=== PATIENT | male | born 1940 | race Caucasian/White ===

== ENCOUNTER → 2018-03-06 11:23 | Outpatient (CLI) | payer MEDICARE, OTHER, SELFPAY ==
--- NOTE | 2018-03-06 11:23 | DT_ITS ---
This patient was seen during an EMR downtime March 02, 2018 - March 09, 2018. This patient may have a combination of paper and electronic documentation or all paper documentation. All documentation is viewable within the e-chart portion of [employer] for each patient visit.
[2018-03-06 15:43] LABS: Rheumatoid Factor < 10.0 IU/mL (<15)
[2018-03-06 16:38] LABS: Hemoglobin A1c 5.6 % (4.2-6.3)
[2018-03-09 09:29] LABS: Vitamin B12 355 pg/mL (211-911)
== END ==
PROVIDERS: Family Provider Internal Medicine; PCP Internal Medicine; Visit Provider Psychiatry & Neurology Neurology
DX: G62.9 Polyneuropathy, unspecified (principal)
CPT/HCPCS: 36415; 82607; 82784; 83036; 84165; 84166; 86038; 86235; 86256; 86334; 86335; 86431

== ENCOUNTER → 2018-06-17 06:50 | Outpatient (CLI) | payer MEDICARE, OTHER, SELFPAY ==
--- NOTE | 2018-06-17 10:16 | NEURO ---
NCS and/or EMG Patient Report Ordering Doctor: Kiah Maldonado DATE OF SERVICE: 06/17/18 This is a bilateral upper extremity sensory and motor nerve conduction study performed on this 77-year-old male without history of neck pain or diabetes however he does have a history of previously diagnosed neuropathy in his legs. He describes numbness and tingling for approximately 9-1/2 months in both upper extremities equally. Bilateral upper extremity sensory and motor nerve conduction study is performed. The median motor distal latencies are prolonged symmetrically with preservation of amplitude and conduction velocities. The median sensory responses are also prolonged bilaterally and the median and ulnar F waves bilaterally are all prolonged mildly. The ulnar amplitude across the elbow on the right are somewhat slowed on the left they are relatively normal. The radial sensory responses normal. 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
== END ==
PROVIDERS: Family Provider Internal Medicine; PCP Internal Medicine; Visit Provider Psychiatry & Neurology Neurology
DX: G62.9 Polyneuropathy, unspecified (principal); R20.2 Paresthesia of skin; R20.0 Anesthesia of skin
CPT/HCPCS: 95911

== ENCOUNTER → 2018-06-30 07:35 | Outpatient (CLI) | payer MEDICARE, OTHER, SELFPAY ==
--- NOTE | 2018-06-30 13:33 | NEURO ---
NCS and/or EMG Patient Report Ordering Doctor: Kiah Maldonado DATE OF SERVICE: 06/30/18 This is a bilateral lower extremity nerve conduction study and a limited right lower extremity EMG performed on this 77-year-old male with a history of numbness tingling in both legs since September 2017. He states that he was diagnosed with B12 deficiency in December 2017 and has been on B12 replacement since. On examination he has mild hammertoe deformities bilaterally as well as high arches. Sensation is intact to testing. Bilateral lower extremity sensory and motor nerve conduction studies are performed. The sural sensory responses are preserved. The common peroneal motor distal latencies amplitudes and conduction velocities are symmetrically preserved. The tibial motor distal latencies amplitudes and conduction velocities are symmetrically preserved. The tibial and common peroneal F-wave latencies are bilaterally preserved and the tibial H reflex responses on the left demonstrate low amplitude and is in the normal range on the right. Right lower extremity needle electromyography was performed however the patient only tolerated testing of 3 muscles. Muscles evaluated included the extensor digitorum brevis, abductor hallucis and medial gastrocnemius. These muscles demonstrated normal insertional activity with absence of pathologic spontaneous activity and normal motor unit recruitment pattern as well as amplitude. The patient deferred testing of further muscles due to pain. 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
== END ==
PROVIDERS: Family Provider Internal Medicine; PCP Internal Medicine; Referring Provider Psychiatry & Neurology Neurology; Visit Provider Psychiatry & Neurology Neurology
DX: G62.9 Polyneuropathy, unspecified (principal); R20.0 Anesthesia of skin; R20.2 Paresthesia of skin
CPT/HCPCS: 95885; 95910

== ENCOUNTER 2018-07-31 10:30 | Day surgery (SDC) | payer MEDICARE, OTHER, SELFPAY ==
[2018-07-31 10:52] VITALS: BP 128/68; PULSE 70; RESP 16; TEMP 36.5; O2SAT 96; BMI 32.4
--- NOTE | 2018-07-31 12:00 | FOR_PTH ---
PATIENT: LURDES HERNANDES LOC: [facility] [place] U#:[id number] AGE/SX: 77/M ROOM: RE07/31/[address]: Dr. Feng Day MD : [id number] BED: DIS: 07/31/2018 SPEC #: [id number] RECD: 07/31/18 13:39 STATUS: JORDAN CORONA #: [id number] MIS: 07/31/18 12:[address]: Feng Day DEPT: SURGICAL PATHOLOGY RECD BY: Vikki Marie ENTERED: 07/31/18 14:57 SP TYPE: FORESKIN OTHR DR: Dr. 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 SJ:eulalia 08/03/18 MICROSCOPIC DESCRIPTION Slides are reviewed. GROSS DESCRIPTION Received in fixative is one container labeled with the patient's name and designated foreskin. The specimen consists of two irregular fragments of hoffman mucosa with attached hemorrhagic submucosal tissue that in aggregate measure 7 x 4 x 0.7 cm. No mucosal mass lesions are identified. Cloud Consultant sections are submitted in one cassette. / AM:eulalia 07/31/18 TC:3 CPT: 75447
[2018-07-31] MEDS: Cefazolin 2 GM in 0.9% Normal Saline 100 ML IV (12:45)
[2018-07-31] MEDS: Bupivacaine Mpf 0.5% 30 ML VIAL (12:55)
--- NOTE | 2018-07-31 13:17 | DCINST_ITS ---
Discharge Diet: Light diet - advance as tolerated Discharge Activity: Return to Normal Activity Call your doctor if your incision/area has: Continuous Slow Oozing, Sudden Increased Bleeding, Increased Pain/ Swelling, Increased Redness, Foul Smelling Discharge, Swelling at the incision site Instructions: Adult Circumcision, Care After Circumcision, Discharge Instructions for Circumcision Allergies/Adverse Reactions: Allergies Penicillins Allergy (Verified 07/24/18 08:11) Rash Medications to take at Discharge Budesonide/Formoterol Fumarate [Symbicort 160-4.5 Mcg Inhaler] 1 puff IH BID PRN PRN 12/27/16 Montelukast [Singulair] 10 mg PO DAILY 07/02/17 Cyanocobalamin [Vitamin B12] 1,000 mcg IM Q30D 07/24/18 Cyanocobalamin [Vitamin B12] 1,000 mcg PO DAILY@0800 07/24/18 Fluticasone/Vilanterol [Breo Ellipta 200-25 Mcg INH] 1 each IH DAILY 07/24/18 Levothyroxine [Synthroid] 50 mcg PO DAILY 07/24/18 Primary Care Physician: Cash Laguna MD [Primary Care Provider] - Test Results: Test results from this visit will be discussed in further detail at your follow- up appointment, if applicable. Please Follow Up With: Feng Day MD When: in 2 weeks, please call to make an appointment.
--- NOTE | 2018-07-31 13:17 | PCM.OPRPT ---
Report of Operation Date of Procedure: 07/31/18 Pre-Operative Diagnosis: Phimosis Post-Operative Diagnosis: Same Surgery/Procedure Performed:: Circumcision Description of Surgical Findings:: 77-year-old male taken back to the operating room at the smooth induction of general anesthesia he was placed in supine position the penis and testicles are prepped and draped in usual sterile fashion he had a very tight scarred down phimotic foreskin we did a penile ring block with lidocaine without epi performed a dorsal slit to pull back the foreskin and then circumferentially went around the sub-smith and then excised the foreskin. I then re-stitch the penile shaft to the subcoronal skin using a 3-0 Vicryl in a continuous fashion all the way around the penis after the circumcision was completed dressings were placed in the penis patient anesthetic was worse taken back to PACU in good condition also obtained good hemostasis with electrocautery after the circumcision was performed. Patient will follow-up in the office in about 2-3 weeks for checkup Type of Anesthesia:: General Drains: none Estimated Blood Loss (mL): 5cc - Admit VTE Documentation VTE Present on Admission: No VTE Mechan Device Prophylaxis: SCD's
[2018-07-31 13:24] VITALS: BP 128/68; BP 148/90; PULSE 75; RESP 16; TEMP 36.3; O2SAT 93
[2018-07-31 13:31] VITALS: BP 128/68; BP 131/92; PULSE 69; RESP 16; O2SAT 93
[2018-07-31 13:45] VITALS: BP 128/68; BP 132/88; PULSE 67; RESP 16; O2SAT 94
[2018-07-31 13:54] VITALS: BP 127/78; BP 128/68; PULSE 66; RESP 16; TEMP 36.5; O2SAT 93
[2018-07-31 15:35] VITALS: BP 115/77; BP 128/68; PULSE 77; RESP 16; TEMP 36.1; O2SAT 93
== END 2018-07-31 15:36 | disposition home or self-care (01) ==
LOC: SDC 10:31 → AC 10:32
PROVIDERS: Family Provider Internal Medicine; PCP Internal Medicine; Referring Provider Urology; Visit Provider Urology
PROC: (CPT 54161; principal; 2018-07-31 11:50)
DX: N47.1 Phimosis (principal); G47.30 Sleep apnea, unspecified; Z79.899 Other long term (current) drug therapy; E03.9 Hypothyroidism, unspecified; J45.20 Mild intermittent asthma, uncomplicated; H91.90 Unspecified hearing loss, unspecified ear
CPT/HCPCS: 54161; 88304; J7120; J2405

== ENCOUNTER 2018-12-03 12:36 | Observation (INO) | payer MEDICARE, OTHER, SELFPAY ==
[2018-12-03] VITALS (9 sets, daily range): BP systolic 109–142; BP diastolic 60–95; PULSE 58–88; RESP 16–22; TEMP 36.6–37; O2SAT 92–95; BMI 32.6; BMI 31.6; BMI 31.7
[2018-12-03 13:05] LABS: Bedside Glucose 131 mg/dL (70-110)
--- NOTE | 2018-12-03 13:11 | EKG12_ITS ---
Test Reason : SYNCOPE Blood Pressure : / mmHG Vent. Rate : 088 BPM Atrial Rate : 088 BPM P-R Int : 214 ms QRS Dur : 152 ms QT Int : 410 ms P-R-T Axes : 044 099 -02 degrees QTc Int : 496 ms Sinus rhythm with 1st degree A-V block Right bundle branch block Possible Inferior infarct , age undetermined Abnormal ECG Confirmed by SUNDAR SANTORO, JANIE ([id number]), television news video editor ALICIA MORTON ([id number]) on 12/08/2018 9:07:38 AM Referred By: Parish Pina Confirmed By:JANIE KWOK MD
--- NOTE | 2018-12-03 13:11 | RAD_ITS ---
STUDY: X-RAY CHEST REASON FOR EXAM: Male, 78 years old. Syncope. TECHNIQUE: Single AP portable view of the chest. COMPARISON: Comparison is made with prior study dated July 02, 2017. FINDINGS: EKG electrodes are seen. Stable elevation of the left hemidiaphragm with mild increased markings at the left lung base suggestive of a left basilar atelectasis. Blunting of the left costophrenic angle. Normal size heart. Normal mediastinum and laureen. Normal visualized pulmonary arteries. There is atherosclerotic tortuosity of the aortic arch and descending thoracic aorta. There are diffuse degenerative changes of the visualized thoracic spine. Normal visualized ribs, clavicles, and shoulders. There is no demonstrated abnormality of the visualized soft tissue structures of the upper abdomen. RAD/Chest 1 View (Portable) IMPRESSION: Elevated left hemidiaphragm with increased markings at the left lung base suggestive of left basilar atelectasis. Electronically Signed: Dwaine Singh, at 13:34 EST , Service support ,
[2018-12-03 13:24] LABS: Absolute Lymphocyte Count 1.21 X10^3/ul (0.83-4.51); Absolute Neutrophil Count 5.1 X10^3/uL (2.0-7.7); Basophil# 0.04 X10^3/uL; Basophil% 0.6 % (0-1); Eosinophil# 0.08 X10^3/uL; Eosinophils% 1.1 % (0-5); Hematocrit 50.3 % (40-54); Hemoglobin 15.8 g/dl (13.0-16.5); Lymphocyte # 1.21 X10^3/ul (4.0); Lymphocyte % 17.1 % (19-41); Mean Corp Hgb Conc 31.4 g/gl (32-36); Mean Corpuscular Volume 98.6 fL (80-94); Mean Platelet Vol. 10.6 fl (6.2-12.0); Monocyte# 0.58 X10^3/uL; Monocyte% 8.2 % (0-10); Neutrophil # 5.13 X10^3/uL (2.7-7.7); Neutrophil % 72.7 % (47-70); POSITIVE COUNT NO; POSITIVE DIFFERENTIAL NO; POSITIVE MORPHOLOGY NO; Platelet Count 187 K/mm3 (150-450); RBC Distribution Width CV 13.5 % (11.6-14.6); RBC Distribution Width SD 48.4 fl (35.1-43.9); White Blood Count 7.1 K/mm3 (4.4-11.0)
[2018-12-03 13:36] LABS: Anion Gap 7 (5-15); BUN 17 mg/dL (7-18); BUN/Creat Ratio 17.6 RATIO (10-20); Calcium,Total 8.8 mg/dL (8.5-10.1); Chloride 106 mmol/L (98-107); Creatinine, Serum 0.96 mg/dL (0.70-1.30); EST Glomerular Filtration Rate 80 mL/min (>60); Est Glom Filt Rate - Afr Amer 96 mL/min (>60); Estimated Creatinine Clearance 63.37 ml/min; Glucose 116 mg/dL (74-106); Potassium 3.9 mmol/L (3.5-5.1); Sodium Level 143 mmol/L (136-145)
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
--- NOTE | 2018-12-03 16:08 | ECHOD_ITS ---
Reason For Study: Syncope Procedure This was a 2D Doppler, Color Flow transthoracic echocardiogram. The study was technically difficult. Exam performed portable in patient room. Left Ventricle Normal LV size. Left ventricular systolic function is normal. The estimated ejection fraction is 65 %. Diastolic function is indeterminate. No regional wall motion abnormalities noted. Right Ventricle Mildly dilated right ventricle. Mild global right ventricular systolic dysfunction. Atria Normal left atrium. Normal right atrium. No doppler evidence for ASD. Mitral Valve There is no mitral annular calcification. Normal mitral valve. Trivial mitral valve insufficiency. Tricuspid Valve Normal tricuspid valve. Trivial tricuspid valve insufficiency. Unable to estimate RV systolic pressure/pulmonary artery pressure due to technically difficult study. Aortic Valve Trisinus/trileaflet aortic valve. Normal aortic valve. Pulmonic Valve The pulmonic valve is not well visualized. Great Vessels Normal sized aortic root. Pericardium/Pleural No pericardial effusion. MMode/2D Measurements & Calculations LVIDd: 3.7 cm IVSd: 1.5 cm Ao root diam: 3.3 cm LVIDs: 2.0 cm LVPWd: 1.2 cm RVDd: 3.0 cm FS: 45.3 % LAV(MOD-bp): 46.6 ml LVAd ap4: 28.3 cm2 SV(MOD-sp4): 52.7 ml LAV(MOD-bp) Indexed: 21.4 ml/m2 EDV(MOD-sp4): 79.2 ml LAV(MOD-sp2): 39.2 ml EDV(sp4-el): 81.7 ml LAV(MOD-sp4): 48.3 ml LVAs ap4: 14.2 cm2 ESV(MOD-sp4): 26.5 ml ESV(sp4-el): 25.7 ml EF(MOD-sp4): 66.6 % EF(sp4-el): 68.5 % SV(sp4-el): 55.9 ml LA A4 area: 18.3 cm2 LA dimension(2D): 5.1 cm RA A4 area: 11.6 cm2 Doppler Measurements & Calculations MV E max niels: 80.4 cm/sec Lat Peak E' Niels: 7.9 cm/sec Med Peak E' Niels: 7.0 cm/sec MV A max niels: 100.8 cm/sec E/E' lat: 10.2 E/E' med: 11.4 MV E/A: 0.80 Ao V2 max: 154.7 cm/sec LV V1 max: 132.1 cm/sec PA V2 max: 103.4 cm/sec Ao max P.6 mmHg LV V1 max P.0 mmHg Ao V2 mean: 111.7 cm/sec Ao mean P.4 mmHg Ao V2 VTI: 32.2 cm Interpretation Summary The study was technically difficult. Left ventricular systolic function is normal. The estimated ejection fraction is 65 %. Mildly dilated right ventricle. Mild global right ventricular systolic dysfunction. Trivial mitral valve insufficiency. Trivial tricuspid valve insufficiency. Unable to estimate RV systolic pressure/pulmonary artery pressure due to technically difficult study. Diastolic function is indeterminate. Ordering Physician: Parish Pina Referring Physician: Cash Laguna Performed By: Denise Webber, ANGELIA, RVT
--- NOTE | 2018-12-03 16:08 | CDU_ITS ---
Reason For Study: SYNCOPE Rt. Velocities/BP Lt. Velocities/BP Prox CCA 94.4/13.5 cm/sec. Prox CCA 110.0/17.0 cm/sec. Mid CCA 85.0/15.2 cm/sec. Mid CCA 97.9/19.9 cm/sec. Dist CCA 84.4/16.4 cm/sec. Dist CCA 97.3/24.6 cm/sec. Prox ICA 65.7/17.0 cm/sec. Prox ICA 72.8/22.4 cm/sec. Mid ICA 57.0/11.8 cm/sec. Mid ICA 74.0/23.7 cm/sec. Dist ICA 44.1/11.4 cm/sec. Dist ICA 69.8/20.9 cm/sec. Rt. ICA/CCA = .77. Lt. ICA/CCA = .76. Prox ECA 71.4/5.5 cm/sec. Prox ECA 97.3/10.0 cm/sec. Rt. Vert. 43.4/8.8 cm/sec. Lt. Vert. 41.6/10.0 cm/sec. Right Extracranial There is intimal thickening but no significant atherosclerotic plaque noted in the right common carotid artery. There is intimal thickening but no significant atherosclerotic plaque noted in the right internal carotid artery. There is intimal thickening but no significant atherosclerotic plaque noted in the right external carotid artery. Antegrade flow is noted in the right vertebral artery. Left Extracranial There is intimal thickening but no significant atherosclerotic plaque noted in the left common carotid artery. There is intimal thickening but no significant atherosclerotic plaque noted in the left internal carotid artery. There is no significant atherosclerotic plaque noted in the left external carotid artery. Antegrade flow is noted in the left vertebral artery. Procedure Carotid Duplex [id number]. Exam performed portable in patient room. Interpretation Summary No hemodynamically significant plague or stenosis bilateral external or internal carotid arteries with <50% stenosis bilaterally. Patent and antegrade vertebrals bilaterally Ordering Physician: Parish Pina Referring Physician: Cash Laguna M.D. Performed By: Dianna Nieves RVT
[2018-12-03 16:48] LABS: Thyroid Stim Hormone (TSH) 4.67 uIU/mL (0.358-3.74)
[2018-12-03] MEDS: Albuterol 2.5 MG/3 ML VIAL.NEB. INHALATION (18:47)
[2018-12-03] MEDS: Budesonide Respules 0.5 MG/2 ML AMPUL.NEB. INHALATION (18:47)
[2018-12-03] MEDS: Montelukast 10 MG Tablet PO (21:09)
[2018-12-04 03:15] VITALS: BP 105/60; BP 105/65; BP 114/71; PULSE 61; PULSE 66; PULSE 67; RESP 16; TEMP 36.9; O2SAT 96
[2018-12-04 03:20] VITALS: PULSE 57
[2018-12-04] MEDS: Levothyroxine 50 MCG Tablet PO (05:40)
[2018-12-04 07:17] VITALS: PULSE 63
[2018-12-04 07:38] VITALS: PULSE 62; RESP 16
[2018-12-04] MEDS: Albuterol 2.5 MG/3 ML VIAL.NEB. INHALATION (07:38)
[2018-12-04] MEDS: Budesonide Respules 0.5 MG/2 ML AMPUL.NEB. INHALATION (07:38)
[2018-12-04 09:26] VITALS: BP 110/59; PULSE 70; RESP 18; TEMP 36.9; O2SAT 96
[2018-12-04 11:30] VITALS: PULSE 61
--- NOTE | 2018-12-04 12:14 | DCINST_ITS ---
- Discharge Diagnoses Current Active Problems: Current Active and Chronic Problems Syncope (Acute) Reason(s) for Visit for Discharge Instructions: Syncope You will use the following diet at home:: Regular Your food should be the consistency of: Regular Your liquids should be the consistency of: Regular/Thin Discharge Activity: Return to Normal Activity Additional Instructions: You will be discharged with an event monitor. Follow-up with your primary care doctor within 1-2 weeks. Follow-up with cardiology in 1 month. Allergies/Adverse Reactions: Allergies Penicillins Allergy (Verified 12/03/18 12:39) Rash Medications to take at Discharge Montelukast [Singulair] 10 mg PO QHS 07/02/17 Fluticasone/Vilanterol [Breo Ellipta 200-25 Mcg INH] 1 each IH DAILY 07/24/18 Levothyroxine [Synthroid] 50 mcg PO DAILY 07/24/18 Cyanocobalamin [Vitamin B12] 1 ml IM QMONTH 12/03/18 Acetaminophen [Tylenol Tablet] 650 mg PO Q6H PRN PRN tablet 12/04/18 Orders to be completed after discharge: 30-Day Event Recorder [[facility]] Location: None Selected Primary Care Physician: Cash Laguna MD [Primary Care Provider] - Please follow up with your Primary Care Physician in: within 2 weeks Test Results: Test results from this visit will be discussed in further detail at your follow- up appointment, if applicable. Please Follow Up With: Vaughn Wang MD When: in 1 month Proposed Discharge Date: 12/04/18
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
[2018-12-04 17:25] LABS: Free T3 2.5 pg/mL (2.18-3.98); T4 Free Direct 0.92 ng/dL (0.76-1.46)
== END 2018-12-04 12:14 | disposition home or self-care (01) ==
LOC: ED 13:44 → PCU 15:26
PROVIDERS: Emergency Provider Emergency Medicine; Family Provider Internal Medicine; PCP Internal Medicine; Visit Provider Internal Medicine
DX: R55 Syncope and collapse (principal); R42 Dizziness and giddiness; I44.0 Atrioventricular block, first degree; I45.10 Unspecified right bundle-branch block; R06.02 Shortness of breath; Z79.899 Other long term (current) drug therapy; Z79.51 Long term (current) use of inhaled steroids; Z87.891 Personal history of nicotine dependence
CPT/HCPCS: 36415; 71045; 80048; 82962; 84439; 84443; 84481; 84484; 85025; 93005; 93306; 93880; 94640; 99218; 99283; A4216; G0378

== ENCOUNTER → 2019-01-06 10:15 | Outpatient (CLI) | payer MEDICARE, OTHER, SELFPAY ==
[2019-01-06 08:01] VITALS: BMI 33.0
--- NOTE | 2019-01-06 10:17 | CT_ITS ---
STUDY: CTA CHEST REASON FOR EXAM: Male, 78 years old. Syncopal episode. History of asthma. RADIATION DOSAGE (If Supplied By Facility): CTDIvol = ( 13.77 ) mGy, DLP = ( 430.80 ) mGycm TECHNIQUE: The examination was performed with the intravenous administration of 100 IV Isovue 370. Post-processing of the angiographic images was performed, with multiplanar reformation and 3D reconstruction. Individualized dose optimization techniques were used for this CT. COMPARISON: Comparison is made with prior study dated July 27, 2015. FINDINGS: Small bilateral axillary lymph nodes. Normal enhancement of the main pulmonary artery and right and left pulmonary arteries. Normal enhancement of the bilateral peripheral pulmonary arteries. There is no demonstrated pulmonary embolism. Normal thoracic aorta and visualized great vessels. There is no demonstrated aortic dissection. Normal heart and pericardium. Normal mediastinum. Normal hilar regions. Normal visualized trachea and bronchi. The lungs are well expanded. Mild increased markings at the lung bases slightly more prominent on the right side suggestive of scarring. Normal pleura. Normal chest wall structures. There are degenerative changes of thoracic spine. Normal visualized upper abdomen. CT/CTA Chest W/WO Contrast IMPRESSION: Mild scarring at the lung bases. There is no evidence of pulmonary embolism. Electronically Signed: Dwaine Singh, at 11:07 EDT , Service support ,
== END ==
PROVIDERS: Family Provider Internal Medicine; PCP Internal Medicine; Referring Provider Internal Medicine Cardiovascular Disease; Visit Provider Internal Medicine Cardiovascular Disease
DX: R55 Syncope and collapse (principal)
CPT/HCPCS: 71275; Q9967

== ENCOUNTER → 2019-01-08 14:46 | Outpatient (CLI) | payer MEDICARE, OTHER, SELFPAY ==
[2019-01-06 08:01] VITALS: BMI 33.0
[2019-01-08 15:30] LABS: Hematocrit 48.7 % (40-54); Hemoglobin 15.8 g/dl (13.0-16.5); Mean Corp Hgb Conc 32.4 g/gl (32-36); Mean Corpuscular Hgb 31.3 pg (27.0-32.0); Mean Corpuscular Volume 96.4 fL (80-94); Mean Platelet Vol. 10.3 fl (6.2-12.0); Platelet Count 185 K/mm3 (150-450); RBC Distribution Width CV 13.5 % (11.6-14.6); RBC Distribution Width SD 46.6 fl (35.1-43.9); Red Blood Count 5.05 M/mm3 (4.6-6.2); Scan Indicated on CBC? Y/N NO; White Blood Count 6.3 K/mm3 (4.4-11.0)
[2019-01-08 15:54] LABS: Anion Gap 4 (5-15); BUN 12 mg/dL (7-18); BUN/Creat Ratio 13.2 RATIO (10-20); Calcium,Total 8.7 mg/dL (8.5-10.1); Chloride 107 mmol/L (98-107); Creatinine, Serum 0.91 mg/dL (0.70-1.30); EST Glomerular Filtration Rate 85 mL/min (>60); Est Glom Filt Rate - Afr Amer 103 mL/min (>60); Glucose 110 mg/dL (74-106); Potassium 3.9 mmol/L (3.5-5.1); Sodium Level 142 mmol/L (136-145)
== END ==
PROVIDERS: Family Provider Internal Medicine; PCP Internal Medicine; Referring Provider Internal Medicine Cardiovascular Disease; Visit Provider Internal Medicine Cardiovascular Disease
DX: R55 Syncope and collapse (principal)
CPT/HCPCS: 36415; 80048; 85027

== ENCOUNTER 2019-01-13 06:34 | Day surgery (SDC) | payer MEDICARE, OTHER, SELFPAY ==
[2019-01-06 08:01] VITALS: BMI 33.0
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
[2019-01-12 09:03] VITALS: BMI 33.0
--- NOTE | 2019-01-13 08:18 | CL.IE_ITS ---
Patient: LURDES HERNANDES Study Date: 01/13/2019 Performing: Vaughn Wang MD : 1940 Age: 78 Gender: male PROCEDURES PERFORMED [id number] OF LOOP RECORDER INDICATIONS Syncope PROCEDURE DETAILS The patient was brought to the Catheterization Lab in the postabsorptive nonsedated state. Infor med consent was obtained prior to the procedure. Local anesthetic was given subcutaneously to the le ft upper chest area with Lidocaine 2%. Incision was made to the left upper chest. ICM Reveal LINQ was inserted into the pocket. The patient tolerated the procedure well. Estimated Blood Loss: 5 ml's IMPLANTED / EX-PLANTED DEVICES IMPLANTED DEVICE(S): ICM Reveal LINQ - Print Line Inspector: [employer], Model # [id number] Serial # [id number] DEVICE PARAMETERS CONCLUSIONS / RECOMMENDATIONS Device Conclusions: Successful implantation of a patient activated loop recorder. Device Recommendations: Follow up with Primary Care Physician PROCEDURE MEDICATIONS Versed 1 mg IV Oxygen: 2 L/min via nasal cannula Antibiotic given in appropriate timeframe. Signed By Vaughn Wang MD On 01/13/2019 08:17:43 Vaughn Wang MD
== END 2019-01-13 09:25 | disposition home or self-care (01) ==
LOC: CLSP 06:36
PROVIDERS: Family Provider Internal Medicine; PCP Internal Medicine; Referring Provider Internal Medicine Cardiovascular Disease; Visit Provider Internal Medicine Cardiovascular Disease
DX: R55 Syncope and collapse (principal); J44.9 Chronic obstructive pulmonary disease, unspecified; I45.10 Unspecified right bundle-branch block; E03.9 Hypothyroidism, unspecified; E66.9 Obesity, unspecified; G47.33 Obstructive sleep apnea (adult) (pediatric); Z87.19 Personal history of other diseases of the digestive system; Z87.438 Personal history of other diseases of male genital organs; Z79.899 Other long term (current) drug therapy; Z90.49 Acquired absence of other specified parts of digestive tract; Z87.891 Personal history of nicotine dependence
CPT/HCPCS: 33285; 99152; 99153; J7040

== ENCOUNTER 2019-11-21 10:48 | Inpatient (IN) | payer MEDICARE, OTHER, SELFPAY ==
[2019-07-27 08:43] VITALS: BMI 32.4
[2019-11-21] VITALS (35 sets, daily range): BP systolic 95–163; BP diastolic 53–89; PULSE 60–103; RESP 14–34; TEMP 36.4–37.3; O2SAT 91–99; BMI 32.5
--- NOTE | 2019-11-21 11:03 | EKG12_ITS ---
Test Reason : POST PCI Blood Pressure : / mmHG Vent. Rate : 082 BPM Atrial Rate : 082 BPM P-R Int : 224 ms QRS Dur : 146 ms QT Int : 432 ms P-R-T Axes : 026 084 021 degrees QTc Int : 504 ms Sinus rhythm with 1st degree A-V block Right bundle branch block Abnormal ECG Confirmed by AZUCENA SANTORO, PAM ([id number]), editorial project manager ALLISON BUTLER ([id number]) on 11/24/2019 1:58:24 PM Referred By: Loretta Gifford Confirmed By:PAM ZENG MD
--- NOTE | 2019-11-21 11:03 | RAD_ITS ---
STUDY: X-RAY CHEST REASON FOR EXAM: Male, 79 years old. CURRENT ID. PRE CATH FILM TECHNIQUE: Single AP portable view of the chest. COMPARISON: 12/03/2018 FINDINGS: Insertable color television console monitor. Poor inspiration with some bibasilar atelectasis. There is no demonstrated pleural abnormality. Normal size heart. Normal mediastinum and laureen. Normal visualized pulmonary arteries. Normal visualized aortic arch and descending thoracic aorta. Normal visualized thoracic spine. Normal visualized ribs, clavicles, and shoulders. There is no demonstrated abnormality of the visualized soft tissue structures of the upper abdomen. RAD/Chest 1 View (Portable) IMPRESSION: Poor inspiration with some bibasilar atelectasis. Electronically Signed: Michael Bello MD at 11:36 EST Tel , Service support ,
[2019-11-21] MEDS: Heparin 10,000 UNITS/10 ML Vial 5000 UNITS IV (11:08)
[2019-11-21] MEDS: TICAGRELOR 90 MG TABLET 180 MG PO (11:08)
[2019-11-21] MEDS: Aspirin 81 MG TAB.CHEW 324 MG PO (11:08)
--- NOTE | 2019-11-21 11:09 | ED.VISSUMM ---
- ER Visit Summary Date of Service: 11/21/19 Chief Complaint: Acute chest pain History of Present Illness: The patient is a 79 M history of asthma and hypothyroidism. No prior cardiac catheterization. Says he was at home about 20 minutes ago got severe 10 out of 10 chest pain and currently is 8 out of 10. He did not take any medications. He is not on blood pressure or cholesterol meds. The pain does radiate to his left arm. And he became sweaty with it. Denies nausea or shortness of breath. He states recently over the last several weeks he has had exertional shortness of breath and exertional chest pain. Any history of DVT or PE. No recent travel, surgery or immobilization. No leg pain or swelling. Physical Examination: Older male initial blood pressure 126/71. Heart rate 61. Pulse ox 97% on room air no signs of hypoxia. He has diaphoretic. H EENT exam unremarkable. Neck nontender no lymphadenopathy. Lungs clear to auscultation bilaterally. Heart regular rhythm rate about 60 no murmur. Chest wall nontender. No ecchymosis or bruising. No subcu air. Abdomen soft nontender normal bowel sounds no peritoneal signs. Patient is moving all 4 extremities. Neurovascular intact. Equal symmetrical radial pulses. Calves are nontender without edema or cords. Neurologically is awake and alert with no focal motor or sensory deficits. Skin no rashes but he is diaphoretic. Test Results: EKG on arrival shows what looks like a acute inferior AL. Is ST elevation in [address] depression in V1 V2 V3 this is changed from prior EKG from November. Labs and chest x-ray are currently pending. White count 8. Hemoglobin is 16 and hematocrit of 51. Electrolytes unremarkable normal creatinine of 1.1 and gap. Troponin normal at 0.023. Chest x-ray is single portable view shows normal cardiac silhouette mediastinum. No acute abnormality read by myself. Emergency Department Course and Treatment: Patient has been given a baby aspirin. I spoke to the sales associate fishing on-call patient be started on heparin bolus and Brilinta p.o. We are preparing the patient for the Veterinary Technician Assistant and the STEMI team has been following. Treatment Plan: STEMI team and patient being prepared for the Veterinary Technician Assistant. I also spoke to the hospitalist Dr. Nohemy Gifford and she will meet him in Veterinary Technician Assistant. Disposition: Admission Impression: Acute inferior AL Acute chest pain This note was generated with [employer] dictation software. It may contain incorrect words, spelling, and punctuation that were not noted in review of the chart prior to signing ED Disposition - Plan for ED Patient: Referrals: Cash Laguna MD [Primary Care Provider] -
[2019-11-21 11:12] LABS: Absolute Lymphocyte Count 2.33 X10^3/uL (0.83-4.51); Absolute Neutrophil Count 5.2 X10^3/uL (2.0-7.7); Basophil# 0.06 X10^3/uL; Basophil% 0.7 % (0-1); Eosinophil# 0.07 X10^3/uL; Eosinophils% 0.8 % (0-5); Hematocrit 51.3 % (40-54); Hemoglobin 16.5 g/dL (13.0-16.5); Lymphocyte # 2.33 X10^3/ul (4.0); Lymphocyte % 26.3 % (19-41); Mean Corp Hgb Conc 32.2 g/dL (32-36); Mean Corpuscular Hgb 30.7 pg (27.0-32.0); Mean Corpuscular Volume 95.5 fL (80-94); Mean Platelet Vol. 10.3 fl (6.2-12.0); Monocyte# 1.19 X10^3/uL; Monocyte% 13.4 % (0-10); NRBC Flagged by Analyzer 0 % (0-5); Neutrophil # 5.19 X10^3/uL (2.7-7.7); Neutrophil % 58.5 % (47-70); Platelet Count 196 K/mm3 (150-450); RBC Distribution Width CV 12.8 % (11.6-14.6); RBC Distribution Width SD 45.4 fl (35.1-43.9); Red Blood Count 5.37 M/mm3 (4.6-6.2); White Blood Count 8.9 K/mm3 (4.4-11.0)
--- NOTE | 2019-11-21 11:12 | NURSING ---
EXHIBIT SPECIALIST , THEN CVICU [address] [facility]I
[2019-11-21] MEDS: Ondansetron 4 MG/2 ML Vial IV (11:19)
[2019-11-21] MEDS: Morphine 4 MG/ML Syringe IV (11:19)
[2019-11-21 11:25] LABS: Anion Gap 4 (5-15); BUN 22 mg/dL (7-18); BUN/Creat Ratio 19.8 RATIO (10-20); Calcium,Total 9.3 mg/dL (8.5-10.1); Chloride 108 mmol/L (98-107); Creatinine, Serum 1.11 mg/dL (0.70-1.30); EST Glomerular Filtration Rate 68 mL/min (>60); Est Glom Filt Rate - Afr Amer 82 mL/min (>60); Estimated Creatinine Clearance 53.89 ml/min; Glucose 131 mg/dL (74-106); Potassium 3.5 mmol/L (3.5-5.1); Sodium Level 143 mmol/L (136-145)
--- NOTE | 2019-11-21 13:15 | CON.PCM_ITS ---
Problem List (1) Acute inferior myocardial infarction Status: Acute Reason for Consult Date of Consultation: 11/21/19 History of Present Illness: The patient is a 79 year old M with significant prior history of syncope for which he had a loop recorder placed approximately 3 years prior to his evaluation by Dr. Rubio presented with symptoms of chest discomfort to the emergency room. Patient informs me that he watching TV at around 1030 this morning started having symptoms of chest discomfort in the anterior precordial area. And subsequently EMS was called and patient was brought to emergency room. Initial EKG emergency room showed evidence of acute ST segment elevation in the inferior leads with reciprocal depression IN THE anterior precordial leads. Due to symptoms of chest discomfort pulses and patient was given heparin 5000units in the emergency room and 4 mg of morphine aspirin and i Integrilin drip was initiated after he came to the [facility]. Approximately week ago while he was watching TV at home started have symptoms of chest discomfort but that subsided spontaneously without any further recurrence since he has not reported that to his career development coordinator Dr. Wang or his primary care physician Past Medical History Allergies/Adverse Reactions: Allergies Penicillins Allergy (Verified 11/21/19 10:50) Rash Home Medications: Ambulatory Orders Medication Instructions Recorded albuterol sulfate 90 mcg/actuation 2 puff INHALATION Q6H PRN 01/01/19 aerosol inhaler Fluticasone/Vilanterol [Breo 1 ea IH DAILY 11/21/19 Ellipta 200-25 Mcg INH] Levothyroxine [Synthroid] 88 mcg PO DAILY 11/21/19 Past Medical History (Chronic Problems): Chronic Problems (Last Reviewed 07/27/19 @ 09:[address] Vaughn Wang MD) History of loop recorder (Chronic 01/13/19) Right bundle branch block (RBBB) (Chronic) Surgical History: cataract, cholecystectomy, tonsillectomy Psychiatric History: No pertinent psych hx - *Family History Maternal Family History: Family History (Last Reviewed 07/27/19 @ 09:[address] Vaughn Wang MD) Mother Heart disease Hypertension Brother Heart disease Father Heart disease Colon cancer History Items: Diabetes, Heart Disease Sibling Family History: Family History (Last Reviewed 07/27/19 @ 09:[address] Vaughn Wang MD) Mother Heart disease Hypertension Brother Heart disease Father Heart disease Colon cancer History Items: Asthma, Heart Disease - Brother with a defibrillator Paternal Family History: Family History (Last Reviewed 07/27/19 @ 09:[address] Vaughn Wang MD) Mother Heart disease Hypertension Brother Heart disease Father Heart disease Colon cancer History Items: Cancer - Colon cancer, Heart Disease Smoking Status: Never smoker Objective: Vital Signs Temp Pulse Resp BP Pulse Ox 97.6 F L 62 16 145/89 H 98 11/21/19 10:51 11/21/19 11:35 11/21/19 11:35 11/21/19 11:35 11/21/19 11:35 Oxygen Flow Rate (L/min) 2 Oxygen Delivery Method Room Air Weight: 226 lb 10.163 oz Body Mass Index (BMI) 32.5 Neck: Supple Lungs: Clear to auscultation Cardiovascular: Regular Rhythm Vascular: No Carotid Bruits Abdomen: Bowel Sounds Present Extremities: No Cyanosis Musculoskeletal: No Erythema Skin: No Rashes 11/21/19 10:55: WBC 8.9, RBC 5.37, Hgb 16.5, Hct 51.3, MCV 95.5 H, MCH 30.7, MCHC 32.2, Plt Count 196, MPV 10.3, Immature Gran % (Auto) 0.300, Neut % (Auto) 58.5, Lymph % (Auto) 26.3, [place] % (Auto) 13.4 H, Eos % (Auto) 0.8, Baso % (Auto) 0.7, Absolute Neuts (auto) 5.2, Nucleated RBC % 0 11/21/19 10:55: Sodium 143, Potassium 3.5, Chloride 108 H, Carbon Dioxide 31.0, Anion Gap 4 L, BUN 22 H, Creatinine 1.11, Est GFR (MDRD) Af Amer 82, Est GFR (MDRD) Non-Af 68, BUN/Creatinine Ratio 19.8, Glucose 131 H, Calcium 9.3, Troponin I 0.023 Rhythm: EKG: Sinus bradycardia with marked first-degree AV block segment elevation in the inferior leads II, III and aVF and reciprocal depression in leads V1, V2 and V3 with underlying right bundle branch block pattern which is chronic ECHO: Stress Test: Cardiac Cath: PCI: CT Surgery: Holter monitor: EPS: PPM: CXR: Chest CT Scan: Assessment/Plan Acute inferior myocardial infarction cardiac [facility] underwent primary angioplasty of culprit lesion which was the mid right coronary artery which showed evidence of 90% gnosis with thrombus. This was successfully revascular ized and patient had placement of a 3.5 into 16 mm drug-eluting stent which was postdilated to 3.76mm 3.75 into 12mm noncompliant balloon stenosis from 90% to 0% . Tolerated procedure with no complications patient had tortuous anatomy in his right brachiocephalic trunk which delayed the door to balloon time evidence of focal 80% stenosis in the mid left interesting artery which will be addressed at a later date Continue patient on IV Integrilin 1 bottle continue dual antiplatelet including Brilinta and aspirin thereafter 0.5 mg IV atropine in the cardiac [facility] for marked bradycardia hence will hold off on using beta-blockers for now but will consider starting a low-dose beta-geoff from tomorrow Echocardiogram in the morning to assess LV systolic function . CPKs and troponins to assess the myocardial damage 2.Bronchial asthma currently stable 3.Chronic right bundle branch block pattern 4. HYpothyroidism 5. Dyslipidemia we will check lipid profile on a fasting sample tomorrow mo rning but will add Lipitor 80 mg nightly from this evening
--- NOTE | 2019-11-21 13:48 | CL.I_ITS ---
Patient Name: LURDES HERNANDES Study Date: 11/21/2019 Performing: Forrest Vaughan MD Ht: 70 inches 177.8 cm : 1940 Wt: 220 lbs 99.79 kg Age: 79 Gender: male BSA: 2.17 PROCEDURE(S) PERFORMED AA68-JHE/COR/LV [id number], KELSI AND/OR PTCA, ARTERY OR GRAFT, SINGLE VESSEL CLINICAL PROFILE AND CO-MORBIDITIES Indications: ACS <= 24 hrs Heart Failure: None Stress/Imaging Stress/Image Study Performed: No CAD Presentations: STEMI. Symptom onset Date/Time: 11/21/2019 10:30:00 Time Estimated CONCLUSIONS Successful KELSI to mid RCA using a 3.5x16 synergy KELSI which was post dilated with a [id number] NC ballo on. Also of note, it took additional time due to access problems along with patient having a tortuou s anatomy in his right brachiocephalic trunk which delayed the the targeted door to balloon time. Th e 80% mid LAD stenosis will be addressed at a later date. RECOMMENDATIONS Highly recommend quitting all tobacco products Follow up with primary buoy tender Risk factor modification ASA Indefinitley Plavix for at least 12 months Routine post interventional care Refer for Outpatient Cardiac Rehab Manual sheath removal per protocol DESCRIPTION OF PROCEDURE The patient arrived to the procedure lab. The risks and benefits of the procedure as well as a full d escription of our services here and lack of surgical backup were fully explained to the patient and/o r their significant other prior to the catheterization. The Timeout was completed, verifying the cristel ect patient and procedure. The patient's procedural site was prepped and draped in the usual fashion. Local anesthetic was given subcutaneously to right radial region with Lidocaine 2%. Local anesthetic was given subcutaneously to right groin region with Lidocaine 2%. Using a modified Seldinger techniq ue, arterial access was obtained via the right radial artery, a 6Fr sheath was inserted., arterial ac cess was obtained via the right femoral artery, a 6Fr sheath was inserted.. Left Coronary Artery asif ective angiography was performed in multiple views using a 6 Fr. 4.0 Hampton catheter. Left Ventriculog ravindra was performed in STEPHENSON projection using a 5 Fr. Pigtail catheter. LV to AO pullback pressures were then recorded Due to tortuosity in the right brachiocephalic artery it was difficult t o engage the diagnostic and guide catheters. It took an additional length of time and caused procedur e delay in reaching targeted door to balloon time. AL 0.75 Guide catheter was inserted and engaged into the LCA. 6fr JL4 Guide catheter was inserted and engaged into the LCA. Arterial sheath was exchanged for a 7 Fr Sheath. 6fr AL 0.75 Guide cathete r was inserted and engaged into the LCA. Arterial sheath was exchanged for a 6fr 45cm sheath JR 4.0 G uide catheter was inserted and engaged into the RCA. choice floppy Guide wire was advanced to the RCA . Emerge 3.00x12 Balloon catheter was inserted. PTCA balloon inflated at 8 atms for 30 secs. Angiogra m performed post balloon dilatation. Synergy 3.50x16 Drug Eluting stent was inserted. Angiogram perfo rmed post stent deployment. NC Emerge 3.75x12 Balloon catheter was inserted. PTCA balloon inflated at 16 atms for 45 secs. Angiogram performed post balloon dilatation. Arterial sheath was exchanged for a 7 Fr Sheath. The arterial sheath was sutured in place and capped. The arterial sheath was pulled and a TR Band was applied for hemostasis W/ 10ML AIR CORONARY ANGIOGRAPHY DOMINANCE: Right Dominant LEFT HEART ASSESSMENT Left Ventricular Ejection Fraction: by LV Gram 55-60 % Mild inferior hypokinesis Inferior Mid Hypokinesis - Mild LEFT ANTERIOR DESCENDING ARTERY: MID LAD: 80 % Stenosis RIGHT CORONARY ARTERY: MID RCA: 90 % Stenosis INTERVENTION INFORMATION LESION SITE: RCA (Mid) thrombus present: Yes, Lesion Complexity: Non-High/Non-C, lesion length: 12 mm, culprit lesion: Yes Pre Stenosis: 90 % Pre intervention KEISHA flow: 2 PROCEDURE: Drug Eluting Stent with pre and post dilatation Post Stenosis: 0 % Post intervention KEISHA flow: 3 Lesion Devices: Sundrop Mobile 6 Fr JR4.0 100cm Guide Catheter Thai Sci EMERGE MR 3.00x12 BALLOON Thai Sci NC EMERGE MR 3.75x12 BALLOON Thai Sci Synergy MR KELSI 3.50x16 COMPLICATIONS No Complications PROCEDURE MEDICATIONS Versed 2 mg IV Fentanyl 50 mcg IV Oxygen: 2 L/min via nasal cannula Oxygen: 100 % FiO2 via non-rebreather mask Oxygen: 4L via nasal cannula Atropine 1mg/10ml 0.5 amp-HR 37 @ 11/21/2019 12:42:47 Heparin 3000 unit(s) via IA 11/21/2019 12:13:40 Heparin 1,500 unit(s) IV 11/21/2019 12:32:48 Heparin 2000 unit(s) IV 11/21/2019 13:07:56 Nitro 600 mcg IC 11/21/2019 12:42:22 IV Bolus: .9 NaCl 1700 ml total 11/21/2019 12:43:15 SUMMARY OF HEMODYNAMIC DATA Time AIR REST ECG 11:42:46 LV 125/23, 33 11:54:00 LV 124/23, 31 11:54:06 LVp 123/16, 32 11:54:12 AOp 121/71 (91) 11:54:17 AO 122/69 (92) SA 11:54:18 LV 100/14, 30 12:57:11 LV 103/13, 24 12:57:18 LV 119/4, 19 12:59:16 LVp 120/1, 20 12:59:21 AOp 110/55 (78) 12:59:26 RM AIR REST 13:48:14 Signed By Forrest Vaughan MD On 11/23/2019 1:28:27 PM Signed By Forrest Vaughan MD On 11/23/2019 11:56:10 AM Signed By Forrest Vaughan MD On 11/22/2019 10:50:21 Signed By Forrest Vaughan MD On 11/21/2019 13:47:50 Forrest Vaughan MD
--- NOTE | 2019-11-21 14:00 | EKG12_ITS ---
Test Reason : AM EKG Blood Pressure : / mmHG Vent. Rate : 066 BPM Atrial Rate : 066 BPM P-R Int : 200 ms QRS Dur : 142 ms QT Int : 428 ms P-R-T Axes : 032 068 008 degrees QTc Int : 448 ms Normal sinus rhythm Right bundle branch block Abnormal ECG Confirmed by AZUCENA SANTORO, PAM ([id number]), index editor ALLISON BUTLER ([id number]) on 11/24/2019 1:58:41 PM Referred By: Loretta Gifford Confirmed By:PAM ZENG MD
--- NOTE | 2019-11-21 14:16 | PCM.HP.STD ---
Problem List (1) STEMI (ST elevation myocardial infarction) Status: Acute Qualifiers: Involved coronary artery: right coronary artery Qualified Code(s): I21.11 - ST elevation (STEMI) myocardial infarction involving right coronary artery (2) Unstable angina pectoris due to coronary arteriosclerosis Status: Acute Comment: for the week preceding the STEMI (3) Asthma Status: Chronic (4) Hyperglycemia Status: Acute Comment: no hx of DM II (5) Acute inferior myocardial infarction Status: Acute (6) History of loop recorder Status: Chronic Comment: placed in November of 2018 after a syncopal episode (7) Right bundle branch block (RBBB) Status: Chronic (8) Syncope Status: Resolved Qualifiers: Syncope type: unspecified Qualified Code(s): R55 - Syncope and collapse (9) Coronary artery disease Status: Acute (10) Post PTCA Status: Acute History of Present Illness Date of Admission: 11/21/19 Chief Complaint: Chest pain radiating to both arms associated with sweating The patient is a 79 year old M with a past medical history of asthma, hypothyroidism and a syncopal episode in November 2018. He had a echocardiogram at that time that showed a 65% ejection fraction with a mildly dilated RV and mild global right ventricular systolic dysfunction. Stress echocardiogram was negative for ischemia. A 30-day event monitor was negative. He had a loop recorder implanted and to his knowledge has had no significant dysrhythmias. Last week he began having substernal and left chest pain at rest and with exertion. It was sometimes associated with diaphoresis but it would resolve on its own and he did not seek medical attention. He had a little chest discomfort this morning when his went to mandaen and when she came back he was waiting for her to take him to the hospital. He had left chest pain that was described as 10/10 and it radiated to both arms. He was sweaty and somewhat nauseated. He is not on aspirin as an outpatient. He has tried to take aspirin in the past and after a few days he always has epistaxis and has to stop the aspirin. He has never seen an ENT doctor or had cautery. He has no history of hypertension or hyperlipidemia and he has been a lifelong non-smoker. EKG in the emergency room showed ST segment elevation in the inferior leads with reciprocal ST segment depression and T wave inversion in the anterior leads. Code STEMI was called and the patient was taken to the [facility] by Dr. Forrest Vaughan. A R radial cardiac catheterization showed a left ventricular ejection fraction of 55 to 60% with mild inferior hypokinesis. There was an 80% stenosis of the mid LAD and a 90% stenosis of the mid RCA. There was thrombus present in the RCA. He had KELSI to the RCA and post stent stenosis was 0%. Postprocedure he was transferred to the cardiac care unit. Lab was personally reviewed. CBC is remarkable for a mildly increased MCV at 95.5 but is otherwise unremarkable. The BMP shows a potassium of 3.5 and a BUN of 22 with a creatinine of 1.11. Random blood sugar is elevated at 131 and he has had no history of diabetes mellitus type 2. The last lipid panel done at this institution was in 2012 and at that time the LDL was 120 and the HDL was 42. His last visit with cardiology was in June 2019 and at that time he had a mildly increased blood pressure and he was asked to check his blood pressure at home and send Dr. Wang the results. There were no changes made to his medications at that time. He was instructed to follow-up in 1 year. Past Medical History Past Medical History (Chronic Problems): Chronic Problems (Last Reviewed 07/27/19 @ 09:[address] Vaughn Wang MD) Asthma (Chronic) History of loop recorder (Chronic 01/13/19) placed in November of 2018 after a syncopal episode Right bundle branch block (RBBB) (Chronic) Medical History: Medical History (Last Reviewed 11/21/19 @ 14:[address] 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 Loretta Gifford DO) History of loop recorder (Chronic) Onset Date: 01/13/19 Z98.890 placed in November of 2018 after a syncopal episode History of ERCP Z98.890 History of cataract surgery Z98.49 History of tonsillectomy Z90.89 Hx of cholecystectomy Z90.49 Surgical History: cataract, cholecystectomy, tonsillectomy Psychiatric History: No pertinent psych hx Lives: Spouse/ Significant Other Smoking Status: Never smoker Tobacco Use: Non-smoker Alcohol: None Drugs: None - *Family History Maternal Family History: Family History (Last Reviewed 11/21/19 @ 14:[address] Loretta Gifford DO) Mother Heart disease Hypertension Brother Heart disease Father Heart disease Colon cancer History Items: Diabetes, Heart Disease Sibling Family History: Family History (Last Reviewed 11/21/19 @ 14:[address] Loretta Gifford DO) Mother Heart disease Hypertension Brother Heart disease Father Heart disease Colon cancer History Items: Asthma, Heart Disease - Brother with a defibrillator Paternal Family History: Family History (Last Reviewed 11/21/19 @ 14:[address] Loretta Gifford DO) Mother Heart disease Hypertension Brother Heart disease Father Heart disease Colon cancer History Items: Cancer - Colon cancer, Heart Disease Review of Systems Constitutional: Denies: Chills, Fever, Malaise, Weight Change - He has been trying to lose weight. BMI is 32.5. Eyes: Denies: Blurred vision HEENT: Denies: Difficulty Hearing, Difficulty Swallowing, Head Aches, Nasal Congestion, Sinus Congestion, Sinus Drainage, Sore Throat Cardiovascular: Reports: Chest Pain - See history of chief complaint for the description., Syncope - In November 2018 and has had no recurrence. Denies: Edema, Light Headedness, Orthopnea, Palpitations, Paroxysmal Noc. Dyspnea Respiratory: Reports: Shortness of breath upon exertion - Or the past week. Denies: Cough, Hemoptysis, Pleuritic Pain, Shortness of Breath, Shortness of breath at rest, Sputum production Gastrointestinal: Reports: Nausea. Denies: Abdominal Pain, Diarrhea, Vomiting Genitourinary: Denies: Dysuria Musculoskeletal: Reports: Arm Pain - He had bilateral arm pain today associated with left chest pain.. Denies: Joint Pain, Joint Tenderness Skin: Denies: Jaundice, Rash, Wounds Neurological: Denies: Balance problems, Slurred speech, Confusion, Difficulty swallowing, Focal weakness, Numbness, Tingling Psychiatric: Denies: Anxiety, Depression, Homicidal Ideations, Suicidal Ideations Endocrine: Denies: Change in Body Habitus, Heat/ Cold Intolerance Hematologic/ Lymphatic: Denies: Easy Bruising, Easy Bleeding, Hx of blood clot VTE Information - Inpt Only VTE Present on Admission: No VTE Mechan Device Prophylaxis: SCD's, Knee High LAKESHIA Hose VTE Pharm Prophylaxis ordered?: No Reason prophylaxis not ordered:: Treatment Not Indicated Patient Problems: Active and Suspected Problems (Last Reviewed 07/27/19 @ 09:[address] Vaughn Wang MD) Acute inferior myocardial infarction (Acute) STEMI (ST elevation myocardial infarction) (Acute) Unstable angina pectoris due to coronary arteriosclerosis (Acute) for the week preceding the STEMI Hyperglycemia (Acute) no hx of DM II Coronary artery disease (Acute) Post PTCA (Acute) - Physical Exam Vitals/I&O's: Vital Signs Temp Pulse Resp BP Pulse Ox 97.6 F L 62 16 145/89 H 98 11/21/19 10:51 11/21/19 11:35 11/21/19 11:35 11/21/19 11:35 11/21/19 11:35 Oxygen Flow Rate (L/min) 2 Oxygen Delivery Method Room Air Weight: 226 lb 10.163 oz Body Mass Index (BMI) 32.5 General: Alert, Oriented x3, Cooperative, No apparent distress, Well developed, Well nourished HEENT: Atraumatic, PERRLA, EOMI, Normocephalic Oral: Moist Mucosa, No Gingival or Mucosal Lesions/ Ulcerations Neck: Supple, No JVD, Negative Carotid Bruits, No Nodes, Trachea Midline, - - Carotid had brisk upstroke and good pulse volume. Lungs: Clear to auscultation - Anterior and lateral., Normal air movement, No rhonchi, No wheeze, No rales Cardiovascular: Regular rate, Regular Rhythm, Normal S1, Normal S2, No murmurs, No rub noted, No Gallop Abdomen: Bowel Sounds Present, Soft, Non Tender, Non-Distended, - - No guarding with palpation Extremities: No clubbing, No cyanosis, No edema, Capillary Refill Less than 3 Seconds, No Calf Tenderness, Peripheral Pulses Normal Skin: No rashes, No breakdown, - - He had a right radial cardiac catheterization and there is no bleeding at the site currently. Musculoskeletal: No Tenderness to Palpation of Joints or Extremities, No Muscle Wasting Neurological: Cranial nerves II-XII grossly intact, Neuro grossly intact Psych/Mental Status: Normal Affect, Appropriate Laboratory Results 11/21/19 10:55: WBC 8.9, RBC 5.37, Hgb 16.5, Hct 51.3, MCV 95.5 H, MCH 30.7, MCHC 32.2, RDW Std Deviation 45.4 H, RDW Coeff of Dejuan 12.8, Plt Count 196, MPV 10.3, Immature Gran % (Auto) 0.300, Neut % (Auto) 58.5, Lymph % (Auto) 26.3, [place]offey % (Auto) 13.4 H, Eos % (Auto) 0.8, Baso % (Auto) 0.7, Absolute Neuts (auto) 5.2, Absolute Lymphs (auto) 2.33, Nucleated RBC % 0 11/21/19 10:55: Sodium 143, Potassium 3.5, Chloride 108 H, Carbon Dioxide 31.0, Anion Gap 4 L, BUN 22 H, Creatinine 1.11, Estim Creat Clear Calc 53.89, Est GFR (MDRD) Af Amer 82, Est GFR (MDRD) Non-Af 68, BUN/Creatinine Ratio 19.8, Glucose 131 H, Calcium 9.3, Troponin I 0.023 Current Medications Acetaminophen (Tylenol) 650 mg PO Q6H PRN PRN PRN Reason: Pain Score 1-3/10 Aspirin (Ecotrin) 81 mg PO DAILY@0800 LILLY Atorvastatin Calcium (Lipitor) 80 mg PO QHS LILLY Atropine Sulfate () 0.5 mg IV UD PRN PRN Reason: HR <50 bpm Heparin Sodium (Beef Lung) (Heparin 500 Unit/5 Ml (100/Ml)) 500 unit IV UD PRN PRN Reason: HEPARIN FLUSH Labetalol HCl (Trandate) 5 mg IV X1 PRN PRN Reason: SBP > 160 when pulling sheath Stop: 11/23/19 13:49 Metoclopramide HCl (Reglan) 5 mg IV Q6H PRN PRN PRN Reason: NAUSEA/VOMITING Metoprolol Tartrate (Lopressor (Beta Zaida)) 12.5 mg PO BID LILLY Nitroglycerin (Nitrostat) 0.4 mg SUBLINGUAL Q5M PRN PRN Reason: CARDIAC/CHEST PAIN Sodium Chloride () 500 ml IV BOLUS PRN PRN Reason: VASO-VAGAL PROTOCOL Ticagrelor (Brilinta) 90 mg PO BID LILLY Assessment/Plan All Active Problems (Last Reviewed 07/27/19 @ 09:[address] Vaughn Wang MD) Acute inferior myocardial infarction (Acute) STEMI (ST elevation myocardial infarction) (Acute) Unstable angina pectoris due to coronary arteriosclerosis (Acute) Hyperglycemia (Acute) Coronary artery disease (Acute) Post PTCA (Acute) Syncope (Resolved) Impressions 1. ST elevation [place] in the inferior wall due to a 90% stenosis of the mid RCA. Patient had a drug-eluting stent placed and postprocedure had 0% stenosis. Transferred to the coronary care unit on dual antiplatelet agents, beta-zaida and a high intensity statin. 2. S/P R radial cardiac catheterization with a KELSI to to mid RCA. 3. CAD with a 90% mid RCA stenosis and a 80% mid LAD stenosis. May need further intervention. He will be re-evaluated by cardiology in the AM and the decision will be made when to intervene....in a few days or bring back as an OP 4. Hypothyroidism 5. Hx of asthma 6. hx of Epistaxis with ASA Continue aspirin and Brilinta Continue metoprolol and watch closely for any recurrent bradycardia Continue high intensity statin. Lipid panel in the a.m. Echocardiogram in the a.m. We will have cardiology review his recent loop recorder results discuss with cardiology in the AM if/when he will have intervention for the 80% LAD lesion SCDs and LAKESHIA jerez for DVT prophylaxis No indication for GI prophylaxis at this time. Code Visit Inpatient E&M: 86395 Init Hosp L3
[2019-11-21 14:48] LABS: CPK Total, Creatine Kinase 288 U/L (39-308)
[2019-11-21] MEDS: 0.9% Normal Saline 1,000 ML 150 ML IV (15:50)
[2019-11-21 18:40] LABS: CPK Total, Creatine Kinase 490 U/L (39-308)
[2019-11-21] MEDS: Atorvastatin Calcium 80 MG Tablet PO (21:35)
[2019-11-21] MEDS: TICAGRELOR 90 MG TABLET PO (21:35)
[2019-11-21 22:10] LABS: CPK Total, Creatine Kinase 492 U/L (39-308)
[2019-11-22] VITALS (21 sets, daily range): BP systolic 97–128; BP diastolic 51–65; PULSE 56–74; RESP 16–25; TEMP 36.6–37.3; O2SAT 89–100
[2019-11-22 04:57] LABS: Hematocrit 44.3 % (40-54); Hemoglobin 14.3 g/dL (13.0-16.5); Mean Corp Hgb Conc 32.3 g/dL (32-36); Mean Corpuscular Hgb 31.5 pg (27.0-32.0); Mean Corpuscular Volume 97.6 fL (80-94); Mean Platelet Vol. 10.3 fl (6.2-12.0); Platelet Count 166 K/mm3 (150-450); RBC Distribution Width SD 46.8 fl (35.1-43.9); Red Blood Count 4.54 M/mm3 (4.6-6.2); White Blood Count 7.4 K/mm3 (4.4-11.0)
[2019-11-22 05:24] LABS: AST(SGOT) 62 U/L (15-37); Alanine Aminotransfer ALT/SGPT 24 U/L (16-61); Albumin, Serum 2.9 g/dL (3.2-5.0); Alkaline Phosphatase 109 U/L (45-117); Anion Gap 4 (5-15); BUN 14 mg/dL (7-18); BUN/Creat Ratio 14.2 RATIO (10-20); Calcium,Total 8.3 mg/dL (8.5-10.1); Chloride 109 mmol/L (98-107); Cholesterol 137 mg/dL (200); Creatinine, Serum 0.99 mg/dL (0.70-1.30); EST Glomerular Filtration Rate 77 mL/min (>60); Est Glom Filt Rate - Afr Amer 94 mL/min (>60); Estimated Creatinine Clearance 60.42 ml/min; Glucose 133 mg/dL (74-106); High Density Lipoprotein 38 mg/dL; Magnesium 2.1 mg/dL (1.6-2.6); Potassium 4.1 mmol/L (3.5-5.1); Protein, Total 5.9 g/dL (6.4-8.2); Sodium Level 142 mmol/L (136-145); Triglycerides 134 mg/dL; Very Low Density Lipoprotein 27 mg/dL (5-40)
--- NOTE | 2019-11-22 05:55 | ECHOCS_ITS ---
Reason For Study: S/P CT Procedure This was a 2D Doppler, Color Flow transthoracic echocardiogram. The study was technically difficult. Exam performed portable in patient room. Left Ventricle Normal size and thickness. The estimated ejection fraction is 65 %. Stage 1 diastolic dysfunction. Septal motion consistent with IVCD. No regional wall motion abnormalities noted. Right Ventricle Normal size and thickness. Normal systolic function. Atria Normal left atrium. Normal right atrium. Normal atrial septum. Mitral Valve The mitral valve is structurally normal. No prolapse or stenosis seen. Trivial mitral valve insufficiency. Tricuspid Valve Normal tricuspid valve. Unable to estimate RV systolic pressure due to insufficient tricuspid regurgitant envelope. Aortic Valve Normal aortic valve. Trisinus/trileaflet aortic valve. Pulmonic Valve Normal pulmonic valve. Great Vessels Normal aortic root. Normal arch. Normal inferior vena cava. Inferior vena cava collapse with sniff. Pericardium/Pleural No pericardial effusion. Medication Diluted definity 3ml given slow IV push to enhance endocardial definition. MMode/2D Measurements & Calculations LVIDd: 3.7 cm IVSd: 1.3 cm Ao root diam: 3.2 cm LVIDs: 2.7 cm LVPWd: 1.1 cm RVDd: 3.3 cm FS: 26.9 % LAV(MOD-bp): 35.7 ml LA A4 area: 14.6 cm2 LA dimension(2D): 4.4 cm LAV(MOD-bp) Indexed: 16.0 ml/m2 LAV(MOD-sp2): 38.5 ml LAV(MOD-sp4): 34.0 ml RA A4 area: 12.8 cm2 Doppler Measurements & Calculations MV E max niels: 66.5 cm/sec Lat Peak E' Niels: 6.0 cm/sec Med Peak E' Niels: 6.3 cm/sec MV A max niels: 85.1 cm/sec E/E' lat: 11.1 E/E' med: 10.6 MV E/A: 0.78 Ao V2 max: 130.6 cm/sec LV V1 max: 121.9 cm/sec PA V2 max: 85.7 cm/sec Ao max P.8 mmHg LV V1 max P.9 mmHg Interpretation Summary The estimated ejection fraction is 65 %. Stage 1 diastolic dysfunction. Trivial mitral valve insufficiency. Unable to estimate RV systolic pressure due to insufficient tricuspid regurgitant envelope. Compared to echo report dated 12/04/2018, no appreciable changes noted. The study was technically difficult. Contrast injection was performed. Ordering Physician: Loretta Gifford Referring Physician: Cash Laguna M.D. Performed By: Denise Webber, ANGELIA, RVT
--- NOTE | 2019-11-22 07:46 | PN_ITS ---
Patient Problems: Active and Suspected Problems (Last Reviewed 11/21/19 @ 14:[address] Loretta Gifford, DO) Acute inferior myocardial infarction (Acute) STEMI (ST elevation myocardial infarction) (Acute) Unstable angina pectoris due to coronary arteriosclerosis (Acute) for the week preceding the STEMI Hyperglycemia (Acute) no hx of DM II Coronary artery disease (Acute) Post PTCA (Acute) Reason for Visit: Follow-up acute ST segment elevation CT Subjective: Patient is an 79-year-old gentleman who presented with chest pain diagnosed with acute inferior wall CT underwent PCI with intervention. Patient was admitted to the intensive care unit following his procedure. Telemetry monitoring did reveal runs of nonsustained VT. Objective: GENERAL: cooperative HEENT: Atraumatic; EYES; Anicteric, Normal Conjunctiva NECK; supple, normal thyroid, RESPIRATORY: Diminished to auscultation CARDIOVASCULAR: Regular S1 S2, GI: soft, normoactive bowel sounds, : No Renal angle tenderness; EXTREMITIES: No edema, no clubbing, MUSCULOSKELETAL: no muscle waisting NEURO: Awake; no lateralizing signs. SKIN: No Rash PSYCH; Flat affect Vitals/I&O's: Vital Signs Temp Pulse Resp BP Pulse Ox 98.4 F 62 21 H 107/53 L 93 11/22/19 04:00 11/22/19 07:00 11/22/19 07:00 11/22/19 07:00 11/22/19 07:00 Oxygen Flow Rate (L/min) 3 Oxygen Delivery Method Room Air Weight: 105.9 kg Body Mass Index (BMI) 32.5 Intake and Output for Last 24 Hours 11/20/19 11/21/19 11/22/19 23:59 23:59 23:59 Intake Total 1480 / 1480 480 / 480 Output Total 865 / 865 200 / 200 Balance 615 / 615 280 / 280 Laboratory Results 11/21/19 10:55: WBC 8.9, RBC 5.37, Hgb 16.5, Hct 51.3, MCV 95.5 H, MCH 30.7, MCHC 32.2, RDW Std Deviation 45.4 H, RDW Coeff of Dejuan 12.8, Plt Count 196, MPV 10.3, Immature Gran % (Auto) 0.300, Neut % (Auto) 58.5, Lymph % (Auto) 26.3, [place] % (Auto) 13.4 H, Eos % (Auto) 0.8, Baso % (Auto) 0.7, Absolute Neuts (auto) 5.2, Absolute Lymphs (auto) 2.33, Nucleated RBC % 0 11/21/19 10:55: Sodium 143, Potassium 3.5, Chloride 108 H, Carbon Dioxide 31.0, Anion Gap 4 L, BUN 22 H, Creatinine 1.11, Estim Creat Clear Calc 53.89, Est GFR (MDRD) Af Amer 82, Est GFR (MDRD) Non-Af 68, BUN/Creatinine Ratio 19.8, Glucose 131 H, Calcium 9.3, Troponin I 0.023 11/21/19 14:20: Total Creatine Kinase 288 11/21/19 18:00: Total Creatine Kinase 490 H 11/21/19 20:45: Total Creatine Kinase Cancelled 11/21/19 21:45: Total Creatine Kinase 492 H 11/22/19 04:40: WBC 7.4, RBC 4.54 L, Hgb 14.3, Hct 44.3, MCV 97.6 H, MCH 31.5, MCHC 32.3, RDW Std Deviation 46.8 H, RDW Coeff of Dejuan 13.0, Plt Count 166, MPV 10.3 11/22/19 04:40: Sodium 142, Potassium 4.1, Chloride 109 H, Carbon Dioxide 29.0, Anion Gap 4 L, BUN 14, Creatinine 0.99, Estim Creat Clear Calc 60.42, Est GFR (MDRD) Af Amer 94, Est GFR (MDRD) Non-Af 77, BUN/Creatinine Ratio 14.2, Glucose 133 H, Calcium 8.3 L, Magnesium 2.1, Total Bilirubin 0.50, AST 62 H, ALT 24, Alkaline Phosphatase 109, Total Protein 5.9 L, Albumin 2.9 L, Globulin 3.0, Albumin/Globulin Ratio 1.0, Triglycerides 134, Cholesterol 137, LDL Cholesterol 72, VLDL Cholesterol 27, HDL Cholesterol 38 L Current Medications Acetaminophen (Tylenol) 650 mg PO Q6H PRN PRN PRN Reason: Pain Score 1-3/10 Aspirin (Ecotrin) 81 mg PO DAILY@0800 [facility] Atorvastatin Calcium (Lipitor) 80 mg PO QHS [facility] Last Admin: 02/23/20 21:35 Dose: 80 mg Documented by: Atropine Sulfate () 0.5 mg IV UD PRN PRN Reason: HR <50 bpm Heparin Sodium (Beef Lung) (Heparin 500 Unit/5 Ml (100/Ml)) 500 unit IV UD PRN PRN Reason: HEPARIN FLUSH Hydralazine HCl (Apresoline Iv) 5 - 10 mg IV Q4H PRN PRN PRN Reason: sys>150 DIAST> 85 Labetalol HCl (Trandate) 5 mg IV X1 PRN PRN Reason: SBP > 160 when pulling sheath Stop: 11/23/19 13:49 Metoclopramide HCl (Reglan) 5 mg IV Q6H PRN PRN PRN Reason: NAUSEA/VOMITING Metoprolol Tartrate (Lopressor (Beta Zaida)) 12.5 mg PO BID [facility] Last Admin: 11/21/19 21:43 Dose: Not Given Documented by: Nitroglycerin (Nitrostat) 0.4 mg SUBLINGUAL Q5M PRN PRN Reason: CARDIAC/CHEST PAIN Sodium Chloride () 500 ml IV BOLUS PRN PRN Reason: VASO-VAGAL PROTOCOL Ticagrelor (Brilinta) 90 mg PO BID [facility] Last Admin: 11/21/19 21:35 Dose: 90 mg Documented by: STROKE Vital Signs/Narrative: Vital Signs Temp Pulse Resp BP Pulse Ox 11/22/19 07:00 62 21 H 107/53 L 93 11/22/19 06:00 67 24 H 99/64 93 11/22/19 05:00 69 21 H 99/51 L 89 11/22/19 04:00 98.4 F 65 20 H 106/57 L 95 Medical Necessity - Tobacco Use Smoking Status: Never smoker Tobacco Use: Non-smoker Assessment/Plan All Active Problems (Last Reviewed 11/21/19 @ 14:[address] Loretta Gifford DO) Acute inferior myocardial infarction (Acute) STEMI (ST elevation myocardial infarction) (Acute) Unstable angina pectoris due to coronary arteriosclerosis (Acute) Hyperglycemia (Acute) Coronary artery disease (Acute) Post PTCA (Acute) Syncope (Resolved) Patient is an 79-year-old gentleman who presented with chest pain diagnosed with acute inferior wall CT underwent PCI with intervention. 1. Acute ST segment elevation myocardial infarction involving the inferior wall ?Patient underwent emergency left heart catheterization findings included a 90% RCA lesion as well as an 80% mid LAD lesion. Patient underwent PCI with KELSI to his RCA lesion. Cardiology on board. Cardiology to determine management of his LAD lesion prior to discharge 2. Runs of nonsustained VT ?Self terminating 3. Hypothyroidism ?Patient is on levothyroxine continued with home dose 5. Dyslipidemia ?Patient started on atorvastatin 5. Obesity with BMI of 33.5 ?Weight loss advised 6. DVT prophylaxis ?Enoxaparin Code Visit Inpatient E&M: 97049 [facility] Hosp L3
--- NOTE | 2019-11-22 08:03 | PN.CARD_ITS ---
Subjectve: Patient seen and examined, doing quite well. Telemetry showed normal sinus rhythm with a self terminating run of 5 beats of nonsustained ventricular tachycardia. Heart rate and blood pressure within normal limits. Right radial site and right femoral artery site clean/dry/intact. Hemoglobin and creatinine are within nominal limits. Peak CK of 492 thus far. EKG shows normal sinus rhythm with right bundle branch block and resolved inferior ST elevation. Objective: Vital Signs Temp Pulse Resp BP Pulse Ox 98.4 F 62 21 H 107/53 L 93 11/22/19 04:00 11/22/19 07:00 11/22/19 07:00 11/22/19 07:00 11/22/19 07:00 Oxygen Flow Rate (L/min) 3 Oxygen Delivery Method Room Air Weight: 233 lb 7.512 oz Body Mass Index (BMI) 32.5 Intake and Output for Last 24 Hours 11/20/19 11/21/19 11/22/19 23:59 23:59 23:59 Intake Total 1480 / 1480 480 / 480 Output Total 865 / 865 200 / 200 Balance 615 / 615 280 / 280 General: Awake, Alert, Oriented x 3 HEENT: PERRL, EOMI, Sclera Non Icteric Neck: Supple, Good ROM, No Lymph Node Enlargement Lungs: Clear to auscultation Cardiovascular: Regular Rhythm, Normal S1, Normal S2, No Murmurs, No Rubs, No Gallops Vascular: No Carotid Bruits, Normal Femoral Pulses, Normal Radial Pulses, Normal Dorsalis Pedal Pulse, Normal Posterior Tibial Pulses Abdomen: Bowel Sounds Present, Soft, Non Tender, No HSM, No Organomegaly Extremities: No Cyanosis, No Clubbing, No edema Neurological: No Focal Motor or Sensory Deficit 11/21/19 10:55: WBC 8.9, RBC 5.37, Hgb 16.5, Hct 51.3, MCV 95.5 H, MCH 30.7, MCHC 32.2, Plt Count 196, MPV 10.3, Immature Gran % (Auto) 0.300, Neut % (Auto) 58.5, Lymph % (Auto) 26.3, [place] % (Auto) 13.4 H, Eos % (Auto) 0.8, Baso % (Auto) 0.7, Absolute Neuts (auto) 5.2, Nucleated RBC % 0 11/21/19 10:55: Sodium 143, Potassium 3.5, Chloride 108 H, Carbon Dioxide 31.0, Anion Gap 4 L, BUN 22 H, Creatinine 1.11, Est GFR (MDRD) Af Amer 82, Est GFR (MDRD) Non-Af 68, BUN/Creatinine Ratio 19.8, Glucose 131 H, Calcium 9.3, Troponin I 0.023 11/22/19 04:40: WBC 7.4, RBC 4.54 L, Hgb 14.3, Hct 44.3, MCV 97.6 H, MCH 31.5, MCHC 32.3, Plt Count 166, MPV 10.3 11/22/19 04:40: Sodium 142, Potassium 4.1, Chloride 109 H, Carbon Dioxide 29.0, Anion Gap 4 L, BUN 14, Creatinine 0.99, Est GFR (MDRD) Af Amer 94, Est GFR (MDRD) Non-Af 77, BUN/Creatinine Ratio 14.2, Glucose 133 H, Calcium 8.3 L, Magnesium 2.1, Total Bilirubin 0.50, Triglycerides 134, Cholesterol 137, LDL Cholesterol 72, VLDL Cholesterol 27, HDL Cholesterol 38 L Rhythm: EKG: ECHO: Pending Stress Test: Cardiac Cath: PCI: CT Surgery: Holter monitor: EPS: PPM: CXR: Chest CT Scan: Medical Necessity - Tobacco Use Smoking Status: Never smoker Tobacco Use: Non-smoker Assessment/Plan 1. Coronary artery disease: The patient presents with acute inferior wall myocardial infarction requiring emergent angioplasty and stenting with a drug- eluting 3.5 X 16 Synergy stent to the right coronary artery postdilated 3.75 mm. The patient apparently has a lesion in his LAD which I will review later on this morning. Will determine whether the patient requires intervention prior to discharge or whether he can go home and return electively for PCI of his LAD. In the meantime we will continue his baby aspirin, Brilinta, beta-geoff and statin. We will hold off on KAIT inhibitor at this time given the patient's relative hypotension. The patient undergo a baseline echocardiogram and a repeat echocardiogram after cardiac rehab and LAD revascularization has been completed. 2. Hyperlipidemia: Continue high-dose Lipitor therapy. Repeat lipid profile in 6 weeks time. 3. Patient may be downgraded to PCU/telemetry if bed is necessary. Patient will follow-up with Dr. Del Rosario going forward. 4. Thank you very much for the opportunity to participate in the cardiac care of your patient. Code Visit Inpatient E&M: 60034 Subs Hosp L2
[2019-11-22] MEDS: Aspirin E.C. 81 MG Tablet PO (08:32)
[2019-11-22] MEDS: Metoprolol Tartrate 25 MG Tablet 12.5 MG PO ×2 (08:32→20:55)
[2019-11-22] MEDS: TICAGRELOR 90 MG TABLET PO ×2 (08:32→20:56)
--- NOTE | 2019-11-22 08:59 | CRPHASE1 ---
Patient Communication PHII Cardiac Rehab Discussed with Patient:: Yes Guide to Cardiac Rehab Given to Patient:: Yes Cardiac Rehab Facility Choice List Given to Patient:: Yes Choice Program [facility] [place] PHII:: Communication Given to CR, Refer to Patient'S Choice [facility] Metal Furrer:: Forrest Vaughan Phase II Cardiac Rehab:: Yes Risk Factors/Lifestyle Smoking Status: Never smoker Hx Hypertension: No Hx Diabetes Mellitus Type 1: No Hx Diabetes Mellitus Type 2: No Hx Metabolic Disorders: Yes Hx Dyslipidemia: Yes Hx Obesity: Yes Height: 5 ft 11 in - BMI 33.5 Stress: Home/Family Risk Factor for Sedentary Lifestyle: Moderate Risk Family History: Family History (Last Reviewed 11/21/19 @ 14:[address] Loretta Gifford DO) Mother Heart disease Hypertension Brother Heart disease Father Heart disease Colon cancer Laboratory Values: Cardiac Rehab Phase I Labs Triglycerides 134 mg/dL (-199) 11/22/19 04:40 Cholesterol 137 mg/dL (200) 11/22/19 04:40 LDL Cholesterol 72 mg/dL (0-130) 11/22/19 04:40 HDL Cholesterol 38 mg/dL (40-) L 11/22/19 04:40 Phase I Education Given On:: [place], Antiplatelet medication Issues Affecting Care:: None Knowledge of Condition:: Yes Learning Preferences: Verbal, Written Medical/Surgical History MD:: No CAD:: No Pulmonary:: Yes - FARMERS LUNG DISEASE JULIANNA:: Yes Diabetes:: No Hypertension:: No Dyslipidemia:: Yes Thyroid:: Yes - HYPOTHYROIDISM Discharge/Home/Social Eval Discharge Disposition: Home Cardiac Rehabilitation Info Cardiac Rehabilitation Program Information: Cardiac Rehabilitation is important for patients like you who are recovering from a heart problem. Cardiac rehabilitation programs are recognized as integral to the continued care of the patient with coronary heart disease. The cardiac rehabilitation program is designed to optimize a patient's physical, psychological, and social functioning. Health medication care manager work in cardiac rehabilitation programs and assist you with getting the treatments you need to get stronger and healthier - like exercise, healthy eating habits, and medications. Cardiac rehabilitation has been show to help people with heart problems live longer and have better life enjoyment than people who do not go to cardiac rehabilitation. Please contact the Cardiac Rehabilitation Program at [facility] at in two weeks if you have not heard from them.
--- NOTE | 2019-11-22 09:02 | CRPH1.INSTRU ---
General Education CAD and cardiac anatomy and function:: Patient communicates acknowledgment Explanation of diagnoses and procedures:: Patient communicates acknowledgment Sign/Symptoms of WA:: Patient communicates acknowledgment Antiplatelet therapy: Patient communicates acknowledgment Proper use of NTG-SL: Not instructed Emergency procedures and activation of EMS: Patient communicates acknowledgment Compliance of all prescribed medications: Patient communicates acknowledgment Smoking Patient Nicotine/Smoking Risk Factors Are:: Never smoked Dyslipidemia Patient Dyslipidemia Risk Factors Are:: Total Cholesterol, Triglycerides, HDL, LDL Recommendations Include:: Lipid profile provided, Reviewed NCEP/ATP guidelines, Therapeutic Lifestyle Change dietary guidelines Dyslipidemia Response Code:: Patient communicates acknowledgment Overweight/Obesity Patient Overweight/Obesity Risk Factors Are:: Obesity - > or = 30 Recommendations Include:: Weight loss of 5-10%, Reduced calorie diet, Exercise 5-7 times/week Overweight/Obesity:: Patient communicates acknowledgment Hypertension Patient Hypertension Risk Factors Are:: No documented hx of HTN Heart Disease Heart Disease Response Code:: Patient communicates acknowledgment Diabetes Patient Diabetes Risk Factors Are:: No documented hx of diabetes Metabolic Syndrome Patient Metabolic Syndrome Risk Factors Are [3 of 5]:: Fasting blood sugar > 100 mg/dL, Waist circumference > 35 [female] or 40 [male], Low HDL <40 [male] or < 50 [female] Recommendations Include:: Reinforce compliance to risk factor modifications, Encouraged follow-up with Primary Care Physician Metabolic Syndrome Response Code:: Patient communicates acknowledgment Sedentary Patient Sedentary Risk Factors Are:: Lack of regular exercise Recommendations Include:: Aerobic exercise 5-7 times/week for 20-30 minutes continuously, Benefits of regular exercise, Discussed home walking program, Monitored Outpatient Cardiac Rehab Sedentary Response Code:: Patient communicates acknowledgment Stress Recommendations Include:: Identification of stressors, and assessment of coping skills, Stress management techniques Stress Response Code:: Patient communicates acknowledgment
[2019-11-22 09:21] LABS: ACT Activated Clotting Time 164 sec (74-137)
[2019-11-22 09:21] LABS: ACT Activated Clotting Time 230 sec (74-137)
[2019-11-22 09:21] LABS: ACT Activated Clotting Time 197 sec (74-137)
--- NOTE | 2019-11-22 10:00 | EKG12_ITS ---
Test Reason : CP Blood Pressure : / mmHG Vent. Rate : 055 BPM Atrial Rate : 258 BPM P-R Int : 284 ms QRS Dur : 088 ms QT Int : 466 ms P-R-T Axes : 032 084 050 degrees QTc Int : [address] elevation consider inferior injury or acute infarct ACUTE CA / STEMI Consider right ventricular involvement in acute inferior infarct Abnormal ECG Confirmed by DANNIE BECKWITH ([id number]), news videotape editor KARISHMA CASE ([id number]) on 11/24/2019 3:05:36 PM Referred By: Loretta Gifford Confirmed By:DANNIE BECKWITH
--- NOTE | 2019-11-22 12:45 | CASEMGMT ---
DAVID SCHMITT Assessment Note Presentation: NSVT, STEMI, PCI/Stent to RCA Intro role of CM and purpose of RN CM assessment to patient in room. Pt is awake, alert and able to participate in assessment. Demographics, PCP and Pharmacy verified. Pt denies dc needs or concerns, however states he is concerned that he may need another PCI/Stent. Per cardiology note, determination needs to be made whether pt can have done outpt electively or needs intervention prior to dc. Pt is aware manager diesel will speak with him re. Pt also had concerns re: Lipitor as he had a friend who was crippled by taking this medication. DAVID SCHMITT encouraged him to discuss medication and options with manager diesel when he speaks with pt. Pt denied other concerns. States his worked @ [employer] for many years, and is retired now. PCP: Dr. Laguna Specialists: Dr. DelR osario Preferred Pharmacy: [facility] Insurance: [facility] Prescription Benefit: yes. [employer] savings card given to patient and explained. LNOK: , Ashley Miguel Living Arrangements: Lives independently with . Denies any care needs. Transportation: Drives DME: Cpap. Pt states has oxygen concentrator and 3L bleed in for Cpap. No portability HHC/SNF: none Patient DC goals: Home DC PLAN: Anticipate home on dc with family support. DAVID SCHMITT encouraged pt to notify CM if dc concerns or needs arise. Ivan WHELAN RN ACM
[2019-11-22] MEDS: Enoxaparin 40 MG/0.4 ML Syringe SC (15:25)
[2019-11-22 20:00] LABS: ACT Activated Clotting Time 164 sec (74-137)
[2019-11-22] MEDS: Atorvastatin Calcium 80 MG Tablet PO (20:56)
[2019-11-23] VITALS (7 sets, daily range): BP systolic 105–123; BP diastolic 63–71; PULSE 53–66; RESP 16–18; TEMP 36.3–36.6; O2SAT 93–94
[2019-11-23] MEDS: Levothyroxine 88 MCG Tablet PO (06:26)
[2019-11-23] MEDS: Aspirin E.C. 81 MG Tablet PO (08:38)
--- NOTE | 2019-11-23 09:46 | PN.CARD_ITS ---
Subjectve: Patient seen and examined, doing quite well. Telemetry negative. No further chest pain. Right groin and right radial access sites are clean/dry/intact without evidence of thrills, bruits or hematoma. Hemoglobin and creatinine are within nominal limits. Objective: Vital Signs Temp Pulse Resp BP Pulse Ox 97.8 F 56 L 18 123/71 H 93 11/23/19 03:05 11/23/19 07:12 11/23/19 03:05 11/23/19 03:05 11/23/19 08:20 Oxygen Flow Rate (L/min) 3 Oxygen Delivery Method Room Air Weight: 225 lb 1.471 oz Body Mass Index (BMI) 32.5 Intake and Output for Last 24 Hours 11/21/19 11/22/19 11/23/19 23:59 23:59 23:59 Intake Total 1480 / 1480 1320 / 1320 240 / 240 Output Total 865 / 865 200 / 200 Balance 615 / 615 1120 / 1120 240 / 240 General: Awake, Alert, Oriented x 3 HEENT: PERRL, EOMI, Sclera Non Icteric Neck: Supple, Good ROM, No Lymph Node Enlargement Lungs: Clear to auscultation Cardiovascular: Regular Rhythm, Normal S1, Normal S2, No Murmurs, No Rubs, No Gallops Vascular: No Carotid Bruits, Normal Femoral Pulses, Normal Radial Pulses, Normal Dorsalis Pedal Pulse, Normal Posterior Tibial Pulses Abdomen: Bowel Sounds Present, Soft, Non Tender, No HSM, No Organomegaly Extremities: No Cyanosis, No Clubbing, No edema Neurological: No Focal Motor or Sensory Deficit Rhythm: EKG: ECHO: Stress Test: Cardiac Cath: PCI: CT Surgery: Holter monitor: EPS: PPM: CXR: Chest CT Scan: Medical Necessity - Tobacco Use Smoking Status: Never smoker Tobacco Use: Non-smoker Assessment/Plan 1. Coronary artery disease: The patient presents with acute inferior wall myocardial infarction requiring emergent angioplasty and stenting with a drug- eluting 3.5 X 16 Synergy stent to the right coronary artery postdilated 3.75 mm. The patient apparently has a lesion in his LAD which I will review later on this morning. After review of the patient's cardiac catheterization film, I believe it is reasonable for the patient be discharged home without intervention of his LAD prior to departure. Arrangements will be made for the patient undergo elective angioplasty and stenting of his mid LAD in 2 to 3 weeks time via his right groin with a long 55 cm sheath due to his tortuous aortoiliac system. In the meantime we will continue his baby aspirin, Brilinta, beta-geoff and statin. We will hold off on KAIT inhibitor at this time given the patient's relative hypotension. The patient undergo a baseline echocardiogram and a repeat echocardiogram after cardiac rehab and LAD revascularization has been completed. Baseline echocardiogram dated 11/22/2019 is as follows: The estimated ejection fraction is 65 %. Stage 1 diastolic dysfunction. Trivial mitral valve insufficiency. Unable to estimate RV systolic pressure due to insufficient tricuspid regurgitant envelope. Compared to echo report dated 12/04/2018, no appreciable changes noted. The study was technically difficult. Contrast injection was performed. Patient will be enrolled in cardiac rehab after his LAD has been revascularized. 2. Hyperlipidemia: Continue high-dose Lipitor therapy. Repeat lipid profile in 6 weeks time. 3. Patient will follow-up with Dr. Del Rosario going forward. 4. Thank you very much for the opportunity to participate in the cardiac care of your patient. Patient may be discharged home and follow-up with Dr. Del Rosario going forward. Code Visit Inpatient E&M: 45791 Subs Hosp L2
--- NOTE | 2019-11-23 09:57 | DCINST_ITS ---
- Discharge Diagnoses Current Active Problems: Current Active and Chronic Problems (Last Reviewed 11/21/19 @ 14:[address] Loretta Gifford DO) Acute inferior myocardial infarction (Acute) STEMI (ST elevation myocardial infarction) (Acute) Unstable angina pectoris due to coronary arteriosclerosis (Acute) for the week preceding the STEMI Asthma (Chronic) Hyperglycemia (Acute) no hx of DM II Coronary artery disease (Acute) Post PTCA (Acute) You will use the following diet at home:: Cardiac Your food should be the consistency of: Regular Discharge Activity: Return to Normal Activity Allergies/Adverse Reactions: Allergies Penicillins Allergy (Verified 11/21/19 10:50) Rash Medications to take at Discharge albuterol sulfate 90 mcg/actuation aerosol inhaler 2 puff INHALATION Q6H PRN 01/01/19 Fluticasone/Vilanterol [Breo Ellipta 200-25 Mcg INH] 1 ea IH DAILY 11/21/19 Levothyroxine [Synthroid] 88 mcg PO DAILY 11/21/19 Aspirin E.C. [Ecotrin] 81 mg PO DAILY@0800 #90 tab 11/23/19 Atorvastatin Calcium [Lipitor] 80 mg PO QHS #90 tab 11/23/19 Metoprolol Tartrate [Lopressor (beta geoff)] 12.5 mg PO BID #180 tab 11/23/19 Ticagrelor [Brilinta] 90 mg PO BID #180 tab 11/23/19 The following prescriptions were given: Ticagrelor [Brilinta] 90 mg PO BID #180 tab Transmission Status: [id number] Aspirin E.C. [Ecotrin] 81 mg PO DAILY@0800 #90 tab Transmission Status: [id number] Atorvastatin Calcium [Lipitor] 80 mg PO QHS #90 tab Transmission Status: [id number] Metoprolol Tartrate [Lopressor (beta geoff)] 12.5 mg PO BID #180 tab Transmission Status: [id number] Primary Care Physician: Cash Laguna MD [Primary Care Provider] - Please follow up with your Primary Care Physician in: IN 1 WEEK Test Results: Test results from this visit will be discussed in further detail at your follow- up appointment, if applicable. Please Follow Up With: Vaughn Wang MD When: IN 2 WEEKS Proposed Discharge Date: 11/23/19
--- NOTE | 2019-11-23 09:59 | PCM.DC.SUM ---
Discharge Date and Diagnosis - Problem List Patient Problems: Active and Suspected Problems (Last Reviewed 11/21/19 @ 14:[address] Loretta Gifford DO) Acute inferior myocardial infarction (Acute) STEMI (ST elevation myocardial infarction) (Acute) Unstable angina pectoris due to coronary arteriosclerosis (Acute) for the week preceding the STEMI Hyperglycemia (Acute) no hx of DM II Coronary artery disease (Acute) Post PTCA (Acute) Date of Admission: 11/21/19 Date of Discharge: 11/23/19 - Primary Discharge Diagnosis Active and Suspected Problems (Last Reviewed 11/21/19 @ 14:[address] Loretta Gifford DO) Acute inferior myocardial infarction (Acute) STEMI (ST elevation myocardial infarction) (Acute) Unstable angina pectoris due to coronary arteriosclerosis (Acute) for the week preceding the STEMI Hyperglycemia (Acute) no hx of DM II Coronary artery disease (Acute) Post PTCA (Acute) - Secondary Discharge Diagnosis Chronic Problems (Last Reviewed 11/21/19 @ 14:[address] Loretta Gifford DO) Asthma (Chronic) History of loop recorder (Chronic 01/13/19) placed in November of 2018 after a syncopal episode Right bundle branch block (RBBB) (Chronic) Hospital Course and Treatment Operations: None Summary of Care Provided: Patient is an 79-year-old gentleman who presented with chest pain diagnosed with acute inferior wall VA underwent PCI with intervention. 1. Acute ST segment elevation myocardial infarction involving the inferior wall ?Patient underwent emergency left heart catheterization findings included a 90% RCA lesion as well as an 80% mid LAD lesion. Patient underwent PCI with KELSI to his RCA lesion. Cardiology on board. Cardiology to determine management of his LAD lesion prior to discharge. Patient was discharged home on recommended medication with plans for patient to undergo staged intervention of his LAD lesion in 2 to 3 weeks 2. Runs of nonsustained VT ?Self terminating 3. Hypothyroidism ?Patient is on levothyroxine continued with home dose 5. Dyslipidemia ?Patient started on atorvastatin 5. Obesity with BMI of 33.5 ?Weight loss advised 6. DVT prophylaxis ?Enoxaparin Patient Problems: Active and Suspected Problems (Last Reviewed 11/21/19 @ 14:[address] Loretta Gifford DO) Acute inferior myocardial infarction (Acute) STEMI (ST elevation myocardial infarction) (Acute) Unstable angina pectoris due to coronary arteriosclerosis (Acute) for the week preceding the STEMI Hyperglycemia (Acute) no hx of DM II Coronary artery disease (Acute) Post PTCA (Acute) Objective: GENERAL: cooperative HEENT: Atraumatic; EYES; Anicteric, Normal Conjunctiva NECK; supple, normal thyroid, RESPIRATORY: Diminished to auscultation CARDIOVASCULAR: Regular S1 S2, GI: soft, normoactive bowel sounds, : No Renal angle tenderness; EXTREMITIES: No edema, no clubbing, MUSCULOSKELETAL: no muscle waisting NEURO: Awake; no lateralizing signs. SKIN: No Rash PSYCH; Flat affect - Physical Exam Vitals/I&O's: Vital Signs Temp Pulse Resp BP Pulse Ox 97.8 F 56 L 18 123/71 H 93 11/23/19 03:05 11/23/19 07:12 11/23/19 03:05 11/23/19 03:05 11/23/19 08:20 Oxygen Flow Rate (L/min) 3 Oxygen Delivery Method Room Air Weight: 102.1 kg Body Mass Index (BMI) 32.5 Intake and Output for Last 24 Hours 11/21/19 11/22/19 11/23/19 23:59 23:59 23:59 Intake Total 1480 / 1480 1320 / 1320 240 / 240 Output Total 865 / 865 200 / 200 Balance 615 / 615 1120 / 1120 240 / 240 Laboratory Results 11/21/19 15:31: Activated Clotting Time 164 H Current Medications Acetaminophen (Tylenol) 650 mg PO Q6H PRN PRN PRN Reason: Pain Score 1-3/10 Albuterol Sulfate (Ventolin Aerosols) 2.5 mg INHALATION Q6H PRN PRN PRN Reason: Wheezing Albuterol Sulfate (Ventolin Aerosols) 2.5 mg INHALATION Q6HWA.RT [facility] Last Admin: 11/23/19 06:56 Dose: Not Given Documented by: Aspirin (Ecotrin) 81 mg PO DAILY@0800 [facility] Last Admin: 11/23/19 08:38 Dose: 81 mg Documented by: Atorvastatin Calcium (Lipitor) 80 mg PO QHS [facility] Last Admin: 11/22/19 20:56 Dose: 80 mg Documented by: Atropine Sulfate () 0.5 mg IV UD PRN PRN Reason: HR <50 bpm Budesonide (Pulmicort Aerosol) 0.5 mg INHALATION Q12H.RT [facility] Last Admin: 11/23/19 06:56 Dose: Not Given Documented by: Enoxaparin Sodium (Lovenox) 40 mg SC DAILY [facility] Last Admin: 11/22/19 15:25 Dose: 40 mg Documented by: Heparin Sodium (Beef Lung) (Heparin 500 Unit/5 Ml (100/Ml)) 500 unit IV UD PRN PRN Reason: HEPARIN FLUSH Hydralazine HCl (Apresoline Iv) 5 - 10 mg IV Q4H PRN PRN PRN Reason: sys>150 DIAST> 85 Labetalol HCl (Trandate) 5 mg IV X1 PRN PRN Reason: SBP > 160 when pulling sheath Stop: 11/23/19 13:49 Levothyroxine Sodium (Synthroid) 88 mcg PO DAILY@0600 [facility] Last Admin: 11/23/19 06:26 Dose: 88 mcg Documented by: Metoclopramide HCl (Reglan) 5 mg IV Q6H PRN PRN PRN Reason: NAUSEA/VOMITING Metoprolol Tartrate (Lopressor (Beta Zaida)) 12.5 mg PO BID [facility] Last Admin: 11/22/19 20:55 Dose: 12.5 mg Documented by: Nitroglycerin (Nitrostat) 0.4 mg SUBLINGUAL Q5M PRN PRN Reason: CARDIAC/CHEST PAIN Sodium Chloride () 500 ml IV BOLUS PRN PRN Reason: VASO-VAGAL PROTOCOL Ticagrelor (Brilinta) 90 mg PO BID [facility] Last Admin: 11/22/19 20:56 Dose: 90 mg Documented by: Discharge Diet: Low fat/ Low Cholesterol Discharge Activity: Return to Normal Activity Home Medications: Medications to take at Discharge albuterol sulfate 90 mcg/actuation aerosol inhaler 2 puff INHALATION Q6H PRN 01/01/19 Fluticasone/Vilanterol [Breo Ellipta 200-25 Mcg INH] 1 ea IH DAILY 11/21/19 Levothyroxine [Synthroid] 88 mcg PO DAILY 11/21/19 Aspirin E.C. [Ecotrin] 81 mg PO DAILY@0800 #90 tab 11/23/19 Atorvastatin Calcium [Lipitor] 80 mg PO QHS #90 tab 11/23/19 Metoprolol Tartrate [Lopressor (beta zaida)] 12.5 mg PO BID #180 tab 11/23/19 Ticagrelor [Brilinta] 90 mg PO BID #180 tab 11/23/19 Following Prescrptions Were Given to Patient: Ticagrelor [Brilinta] 90 mg PO BID #180 tab Transmission Status: Pending to [facility]/pharmacy #[id number] Aspirin E.C. [Ecotrin] 81 mg PO DAILY@0800 #90 tab Transmission Status: Pending to [facility]/pharmacy #[id number] Atorvastatin Calcium [Lipitor] 80 mg PO QHS #90 tab Transmission Status: Pending to [facility]/pharmacy #[id number] Metoprolol Tartrate [Lopressor (beta zaida)] 12.5 mg PO BID #180 tab Transmission Status: Pending to [facility]/pharmacy #[id number] Primary Care Physician: Cash Laguna MD [Primary Care Provider] - Please follow up with your Primary Care Physician in: IN 1 WEEK Please Follow Up With: Vaughn Wang MD When: IN 2 WEEKS Disposition: Home Minutes spent on discharge:: 35 Patient Condition:: Stable Medical Necessity - Tobacco Use Smoking Status: Never smoker Tobacco Use: Non-smoker Meaningful Use Info Meaningful Use Diagnoses (Choose all that apply): AMI - AMI/Post PCI/Angioplasty Aspirin given w/in 24hrs of arrival?: Yes ASA at discharge?: Yes Antiplatelet Therapy at Discharge:: Yes Statins at discharge?: Yes Niraj/ARB at discharge?: No Reason Niraj/ARB not ordered:: Not indicated Beta Zaida at discharge?: Yes Done w/ Acute VA measure.: Yes Documented LVEF (%): 60 Code Visit Inpatient E&M: 46667 Disch Hosp
--- NOTE | 2019-11-23 10:00 | EKG12_ITS ---
Test Reason : AM EKG Blood Pressure : / mmHG Vent. Rate : 058 BPM Atrial Rate : 058 BPM P-R Int : 192 ms QRS Dur : 148 ms QT Int : 444 ms P-R-T Axes : -02 068 -44 degrees QTc Int : 435 ms Sinus bradycardia with Fusion complexes Non-specific intra-ventricular conduction block Inferior infarct , age undetermined Abnormal ECG When compared with ECG of 22-NOV-2019 05:38, MANUAL COMPARISON REQUIRED, DATA IS UNCONFIRMED Confirmed by DANNIE BECKWITH ([id number]), fashion editor KARISHMA CASE ([id number]) on 11/24/2019 3:15:10 PM Referred By: Loretta Gifford Confirmed By:DANNIE BECKWITH
[2019-11-23] MEDS: Metoprolol Tartrate 25 MG Tablet 12.5 MG PO (10:22)
[2019-11-23] MEDS: TICAGRELOR 90 MG TABLET PO (10:22)
--- NOTE | 2019-11-23 10:39 | PHA.DC.MC ---
Pharmacy Service has performed discharge medication reconciliation and counseling for this patient. The patient's discharge medication list was reviewed for discrepancies and discrepancies were resolved. Home Medications albuterol sulfate 90 mcg/actuation aerosol inhaler 2 puff INHALATION Q6H PRN 01/01/19 Fluticasone/Vilanterol [Breo Ellipta 200-25 Mcg INH] 1 ea IH DAILY 11/21/19 Levothyroxine [Synthroid] 88 mcg PO DAILY 11/21/19 Aspirin E.C. [Ecotrin] 81 mg PO DAILY@0800 #90 tab 11/23/19 Atorvastatin Calcium [Lipitor] 80 mg PO QHS #90 tab 11/23/19 Metoprolol Tartrate [Lopressor (beta geoff)] 12.5 mg PO BID #180 tab 11/23/19 Ticagrelor [Brilinta] 90 mg PO BID #180 tab 11/23/19 The patient was counseled on the following discharge medications and changes in medications for homegoing were reviewed. The Reason for Use, instructions for use, and potential side effects were reviewed for all new medications. 1. BRILINTA 2. ASPIRIN 81MG 3. METOPROLOL TARTRATE 4. ATORVASTATIN The patient's questions regarding all of their medications were answered. The patient demonstrated some understanding but would benefit from further education and reinforcement.
--- NOTE | 2019-11-24 16:30 | CASEMGMT ---
Case Management DC F/u Call: DC Date: 11/23/2019 DC Diagnosis: Acute inferior myocardial infarction (Acute), STEMI (ST elevation myocardial infarction) (Acute), Unstable angina pectoris due to coronary arteriosclerosis (Acute) for the week preceding the STEMI, Hyperglycemia (Acute) no hx of DM II Coronary artery disease (Acute), Post PTCA (Acute) DC Disposition: Home Lace/Strata: 07/01 Called patient listed cell phone on demographics, answered call, introduced self and role. Patient states doing okay. Confirmed received his DC medications and denies any questions or concerns with ACI, F/u or medications. States all [facility] staff was great and will be back in a couple weeks for another stent. Thanked patient for choosing [facility] for care and ended conversation. Garrison Israel, DAVIDCM
== END 2019-11-23 10:39 | disposition home or self-care (01) | DRG 247 ==
LOC: ED 11:17 → ICU 15:10 → PCU 11-22 14:50
PROVIDERS: Specialist; Admitting Provider Internal Medicine; Emergency Provider Emergency Medicine; PCP Internal Medicine; Referring Provider Internal Medicine; Visit Provider Internal Medicine
DX: I21.19 ST elevation (STEMI) myocardial infarction involving other coronary artery of inferior wall (principal); I47.2 Ventricular tachycardia; R73.9 Hyperglycemia, unspecified; I25.10 Atherosclerotic heart disease of native coronary artery without angina pectoris; J45.909 Unspecified asthma, uncomplicated; I45.10 Unspecified right bundle-branch block; E03.9 Hypothyroidism, unspecified; E78.5 Hyperlipidemia, unspecified; Z68.33 Body mass index [BMI] 33.0-33.9, adult; E66.9 Obesity, unspecified
CPT/HCPCS: 71045; 80048; 80053; 80061; 82550; 83735; 84484; 85025; 85027; 85347; 92941; 93005; 93306; 93458; 99152; 99153; 99285; J7030; J7040; Q9957; Q9967; A4216; C1725; C1769; C1874; C1887; C1894; C8929; C9606; J1327; J2405

== ENCOUNTER → 2019-12-24 06:36 | Outpatient (CLI) | payer MEDICARE, OTHER, SELFPAY ==
[2019-12-17 10:51] VITALS: BMI 31.8
--- NOTE | 2019-12-24 16:19 | STRESSREP ---
Stress Test Report Exercise myocardial perfusion stress test. 79-year-old man with a history of chest pain. Stress protocol: Resting KG demonstrates sinus rhythm with a rate of 62 bpm normal intervals are noted right bundle branch block is noted. Resting blood pressure is 124/72 mmHg. Patient exercised according to regular Ivan protocol for total duration of 4 minutes. The maximum heart rate attained was 102 bpm which was 73% of maximal predicted heart rate the maximum workload was 5.8 metabolic equivalents. At rest there were no ST or T wave changes noted suggest ischemia peak exercise nonspecific ST-T wave changes were noted with no meet the criteria for ischemia. No clinical angina was noted the resting blood pressure was 124/72 with a peak blood pressure 158/72 mmHg. The test was terminated due to leg fatigue. Myocardial perfusion protocol. 15.0 mCi of technetium 99m sestamibi was injected at rest. The patient exercised according to regular Ivan protocol. At peak infusion 45.0 mCi of technetium 99m sestamibi was injected stress images were obtained stress and rest images were reconstructed in comparing the short axis vertical long horizontal long axis. Gated images were also obtained Perfusion SPECT analysis: Review of the stress images demonstrate normal uptake of tracer noted in all areas of the myocardium the resting images demonstrated normal uptake of tracer noted in all areas of the myocardium. No reversibility was noted to suggest ischemia and no previous infarct was noted. Gated SPECT analysis: The gated ejection fraction is 68%. Conclusion: Normal exercise myocardial perfusion stress test at a moderate workload. Preserved ejection fraction.
== END ==
PROVIDERS: PCP Internal Medicine; Referring Provider Internal Medicine Cardiovascular Disease; Visit Provider Internal Medicine Cardiovascular Disease
DX: I25.110 Atherosclerotic heart disease of native coronary artery with unstable angina pectoris (principal)
CPT/HCPCS: 78452; 93017; A9500; A4216

== ENCOUNTER → 2020-10-17 09:06 | Outpatient (CLI) | payer MEDICARE, OTHER, SELFPAY ==
[2020-10-13 10:32] VITALS: BMI 32.3
[2020-10-17 12:34] LABS: AST(SGOT) 21 U/L (15-37); Alanine Aminotransfer ALT/SGPT 28 U/L (16-61); Albumin, Serum 3.5 g/dL (3.2-5.0); Alkaline Phosphatase 148 U/L (45-117); Bilirubin, Direct 0.21 mg/dL (0.00-0.30); Cholesterol 95 mg/dL (200); Globulin 3.1 g/dL (2.2-4.2); High Density Lipoprotein 58 mg/dL; Protein, Total 6.6 g/dL (6.4-8.2); Triglycerides 68 mg/dL; Very Low Density Lipoprotein 14 mg/dL (5-40)
== END ==
PROVIDERS: PCP Internal Medicine; Referring Provider Internal Medicine Cardiovascular Disease; Visit Provider Internal Medicine Cardiovascular Disease
DX: E78.00 Pure hypercholesterolemia, unspecified (principal)
CPT/HCPCS: 36415; 80061; 80076

== ENCOUNTER 2020-10-27 09:39 | Emergency (ER) | payer MEDICARE, OTHER, SELFPAY ==
[2020-10-13 10:32] VITALS: BMI 32.3
[2020-10-27 09:41] VITALS: BP 142/77; PULSE 57; RESP 17; TEMP 36.5; O2SAT 93; BMI 34.1
--- NOTE | 2020-10-27 09:54 | CT_ITS ---
STUDY: CT ABDOMEN AND PELVIS WITH CONTRAST REASON FOR EXAM: Male, 80 years old. LLQ PAIN WITH HISTORY OF DIVERTICULITIS. PRIOR CHOLECYSTECTOMY RADIATION DOSAGE (If Supplied By Facility): CTDIvol = ( 14.32 ) mGy, DLP = ( 1096.00 ) mGycm TECHNIQUE: Transaxial images were obtained from the dome of the diaphragm to the symphysis pubis without oral contrast. IV 100ML ISOVUE 300 was administered. Sagittal and coronal images were reconstructed. Individualized dose optimization techniques were used for this CT. COMPARISON: Comparison is made with prior study dated 12/27/2016. FINDINGS: Stable minimal increased linear markings at the lung bases suggestive of scarring. Coronary artery calcification. Normal liver. The patient is status post cholecystectomy. Normal spleen. Normal pancreas. Normal bilateral adrenal glands. Normal right kidney. Normal left kidney. Normal visualized stomach. Normal small intestine. There are multiple colonic diverticula consistent with diverticulosis. Minimal increased markings are seen in the surrounding fat in the distal descending colon and junction with the sigmoid colon suggests a mild degree of sigmoid diverticulitis. The appendix is visualized and appears normal. There is scattered atherosclerotic calcification of the abdominal aorta, without a demonstrated aneurysm. Normal inferior vena cava. Normal retroperitoneum. Normal urinary bladder. There is enlargement of the prostate gland. The prostate measures 6.4 cm x 6.4 cm. This causes indentation of the bladder base. Central prostatic calcification. Normal abdominal wall. There are mild degenerative changes of the visualized lumbar spine. CT/Abdomen/Pelvis W IV Cont ONLY IMPRESSION: Sigmoid diverticulosis with a mild degree of inflammatory changes at the junction of the descending colon and sigmoid colon. Prostatic enlargement. Electronically Signed: Dwaine Singh MD at 11:12 EST , Service support ,
--- NOTE | 2020-10-27 09:55 | ED.DCSUM_ITS ---
History of Present Illness Chief Complaint: Abd Pain Informant: Patient Narrative: Patient is an 80-year-old male with a past medical history of CAD with stent on Brilinta and aspirin who presents to the emergency department for left lower quadrant abdominal pain. He states that this started last night. It has been constant but he feels like it is starting to alleviate now. He has not tried taking anything for it. Lying on his side seems to make it worse. He does have a history of diverticulitis before. He denies any change in bowel habits. No urinary symptoms. Denies any fevers or chills. No chest pain or shortness of breath. Pain does not radiate to his back. He has a distant history of gallstone pancreatitis status post cholecystectomy. Past Medical History - Allergies and Home Meds Allergies/Adverse Reactions: Allergies Penicillins Allergy (Verified 10/27/20 09:40) Rash Primary Care Physician: Cash Laguna MD [Primary Care Provider] - 3-5 Days Prior records reviewed: Yes Surgical History: cataract, cholecystectomy, tonsillectomy - Family History Sibling Family History: Family History (Last Reviewed 04/13/20 @ 11:[address] Vaughn Wang MD) Mother Heart disease Hypertension Brother Heart disease Father Heart disease Colon cancer Family History: Reports: Asthma, Heart Disease - Brother with a defibrillator Paternal Family History: Family History (Last Reviewed 04/13/20 @ 11:[address] Vaughn Wang MD) Mother Heart disease Hypertension Brother Heart disease Father Heart disease Colon cancer Family History: Reports: Cancer - Colon cancer, Heart Disease Maternal Family History: Family History (Last Reviewed 04/13/20 @ 11:[address] Vaughn Wang MD) Mother Heart disease Hypertension Brother Heart disease Father Heart disease Colon cancer Family History: Reports: Diabetes, Heart Disease Review of Systems All systems negative except as indicated General: Denies: Chills, Fever, Sweats Eyes: Denies: Visual changes - bilaterally, Diplopia ENT: Denies: Rhinorrhea, Sore throat Cardiovascular: Denies: Chest pain, Palpitations Respiratory: Denies: Dyspnea, Cough, Dyspnea on exertion Gastrointestinal: Reports: Abdominal pain. Denies: Nausea, Vomiting, Diarrhea, Melena, Hematochezia Genitourinary: Denies: Dysuria, Hematuria, Frequency Musculoskeletal: Denies: Back pain, Extremity Pain Skin: Denies: Rash, Wounds Neurological: Denies: Headache, Weakness, Numbness Physical Exam Vital Signs/Narrative: Vital Signs Temp Pulse Resp BP Pulse Ox 10/27/20 09:41 97.7 F L 57 L 17 142/77 H 93 Inital Vital Signs reviewed: Yes General: Well nourished, Well developed, No Acute Distress Head: Normocephalic, Atraumatic Eyes: Perrl, EOMI ENT: Moist mucous membranes, No rhinorrhea Neck: Supple, Nontender Cardiovascular: Regular rate, Regular rhythm, No murmurs Respiratory: No distress, CTA bilaterally, Chest nontender Abdomen: Soft, Nondistended, Normal bowel sounds, Tender - Left lower quadrant, - - No pain over McBurney's point.. Negative for: Guarding, Rebound tenderness Back: Nontender, Normal Inspection. Negative for: CVA tenderness Extremities: Nontender, No edema Skin: Normal color, No rash Neurological: Alert, Oriented x3, Cranial nerves II-XII grossly intact, Normal Strength, Normal Sensation Psychological: Normal affect, Normal Mood Diagnostic/Tx/Re-eval - Medical Decision Making Patient presents to the emergency department for left lower quadrant abdominal pain. He does have tenderness of that left side but no peritoneal signs. Upon arrival to the emerge department vital signs within normal limits. Does not appear in any acute distress. Check basic lab work and CT scan of the abdomen/pelvis to evaluate for diverticulitis. Patient declining anything for pain at this time. Patient's lab work-up did not reveal any significant acute abnormality. His CT scan was showing signs of diverticulitis. Patient is a good candidate for oral outpatient treatment with antibiotics. He does have a penicillin allergy so placed on ciprofloxacin and Flagyl. He is going to follow-up with his PCP otherwise. Return precautions are reviewed. He understands and is agreeable with plan. Discharged home in stable condition. All questions were answered. ED Disposition - Plan for ED Patient: Disposition: Home or Assisted Living Diagnosis: Diverticulitis Instructions: ED Diverticulitis Prescriptions: Ciprofloxacin [Cipro] 500 mg PO BID #14 tab Transmission Status: [id number] metroNIDAZOLE [Flagyl] 500 mg PO Q8H #21 tab Transmission Status: Received by [facility]pharm[facility] #[id number] Referrals: aCsh Laguna MD [Primary Care Provider] - 3-5 Days
[2020-10-27 10:13] LABS: Absolute Lymphocyte Count 0.95 X10^3/uL (0.83-4.51); Absolute Neutrophil Count 5.2 X10^3/uL (2.0-7.7); Basophil# 0.06 X10^3/uL; Basophil% 0.8 % (0-1); Eosinophil# 0.08 X10^3/uL; Eosinophils% 1.1 % (0-5); Hematocrit 52.8 % (40-54); Hemoglobin 16.9 g/dL (13.0-16.5); Lymphocyte # 0.95 X10^3/ul (4.0); Lymphocyte % 13.3 % (19-41); Mean Corpuscular Hgb 31.6 pg (27.0-32.0); Mean Corpuscular Volume 98.7 fL (80-94); Mean Platelet Vol. 9.7 fl (6.2-12.0); Monocyte% 11.2 % (0-10); NRBC Flagged by Analyzer 0 % (0-5); Neutrophil # 5.18 X10^3/uL (2.7-7.7); Neutrophil % 72.9 % (47-70); Platelet Count 196 K/mm3 (150-450); RBC Distribution Width CV 12.9 % (11.6-14.6); RBC Distribution Width SD 46.9 fl (35.1-43.9); Red Blood Count 5.35 M/mm3 (4.6-6.2); White Blood Count 7.1 K/mm3 (4.4-11.0)
[2020-10-27 10:28] LABS: ALB/GLOB Ratio 1.1 RATIO (0.9-2.4); AST(SGOT) 18 U/L (15-37); Alanine Aminotransfer ALT/SGPT 30 U/L (16-61); Albumin, Serum 3.7 g/dL (3.2-5.0); Alkaline Phosphatase 167 U/L (45-117); Anion Gap 2 (5-15); BUN 17 mg/dL (7-18); BUN/Creat Ratio 19.4 RATIO (10-20); Calcium,Total 9.1 mg/dL (8.5-10.1); Chloride 109 mmol/L (98-107); Creatinine, Serum 0.88 mg/dL (0.70-1.30); EST Glomerular Filtration Rate 89 mL/min (>60); Est Glom Filt Rate - Afr Amer 107 mL/min (>60); Estimated Creatinine Clearance 62.61 ml/min; Globulin 3.4 g/dL (2.2-4.2); Glucose 103 mg/dL (74-106); Lipase 108 U/L (73-393); Potassium 4.2 mmol/L (3.5-5.1); Protein, Total 7.1 g/dL (6.4-8.2); Sodium Level 143 mmol/L (136-145)
[2020-10-27 11:46] VITALS: RESP 18
== END 2020-10-27 11:48 | disposition home or self-care (01) ==
PROVIDERS: Emergency Provider Emergency Medicine; PCP Internal Medicine
DX: K57.32 Diverticulitis of large intestine without perforation or abscess without bleeding (principal); I25.10 Atherosclerotic heart disease of native coronary artery without angina pectoris; Z87.19 Personal history of other diseases of the digestive system; Z95.5 Presence of coronary angioplasty implant and graft; Z90.49 Acquired absence of other specified parts of digestive tract; Z79.82 Long term (current) use of aspirin; Z79.899 Other long term (current) drug therapy
CPT/HCPCS: 74177; 80053; 83690; 85025; 99283; Q9967; A4216

== ENCOUNTER → 2020-12-14 06:28 | Outpatient (CLI) | payer MEDICARE, OTHER, SELFPAY ==
--- NOTE | 2020-12-14 17:49 | STRESSREP ---
Stress Test Report Pharmacologic myocardial perfusion stress test. 80-year-old male with a history of shortness of breath and previous ST elevation myocardial infarction. Stress protocol: Resting EKG demonstrates normal sinus rhythm with a rate of 60 bpm. Right bundle branch block is noted. Resting blood pressure is 140/80 mmHg. 0.4 mg of regadenoson was infused per usual protocol followed by rapid intravenous saline flush injection continuous EKG monitoring was performed. The maximum heart rate attained was 80 bpm which was 57% of max impacted heart rate. The maximum workload was 1 metabolic equivalent. At rest there were no ST or T wave changes noted which did not meet the criteria for ischemia. At peak infusion nonspecific ST-T wave changes were noted. The final blood pressure was 142/70 mmHg. Myocardial perfusion protocol. 14.2 mCi of technetium 99m sestamibi was injected at rest. 0.4 mg of regadenoson was infused per usual protocol. At peak infusion 44.3 mCi of technetium 99m sestamibi was injected stress images were obtained stress and rest images were reconstructed and compared in the short axis vertical long and horizontal long axis. Gated images were also obtained Perfusion SPECT analysis: Review of the images demonstrate normal uptake of tracer noted in all areas of the myocardium except a small portion of the distal anterior wall with reduced perfusion. The resting images demonstrate normal uptake of tracer noted in all areas of the myocardium. A small amount of mid anterior to distal anterior ischemia is suggested. The rest of the padilla appear to be well perfused. Gated SPECT analysis: The gated ejection fraction is noted to be 71%. Conclusion: Pharmacologic myocardial perfusion stress test with mild to distal anterior ischemia. Preserved ejection fraction.
== END ==
PROVIDERS: PCP Internal Medicine; Referring Provider Nurse Practitioner Family; Visit Provider Nurse Practitioner Family
DX: I25.10 Atherosclerotic heart disease of native coronary artery without angina pectoris (principal)
CPT/HCPCS: 78452; 93017; A9500; A4216; J2785

== ENCOUNTER 2020-12-21 06:41 | Day surgery (SDC) | payer MEDICARE, OTHER, SELFPAY ==
--- NOTE | 2020-12-19 09:05 | RAD_ITS ---
STUDY: X-RAY CHEST REASON FOR EXAM: Male, 80 years old. cad dyspnea TECHNIQUE: PA and lateral COMPARISON: 11/21/2019 FINDINGS: There is diminished inspiratory effort and mild discoid atelectasis at both lung bases.. There is no demonstrated pleural abnormality. Normal size heart. Normal mediastinum and laureen. Normal visualized pulmonary arteries. Normal visualized aortic arch and descending thoracic aorta. Dorsal spine and shoulders demonstrate degenerative change Normal visualized ribs, and clavicles.. There is no demonstrated abnormality of the visualized soft tissue structures of the upper abdomen. RAD/Chest PA and Lateral IMPRESSION: Diminished inspiratory effort and mild bibasilar atelectasis. Electronically Signed: Jonah Cain MD at 17:36 EDT , Service support ,
[2020-12-19 09:54] LABS: Absolute Lymphocyte Count 1.16 X10^3/uL (0.83-4.51); Absolute Neutrophil Count 3.5 X10^3/uL (2.0-7.7); Basophil# 0.04 X10^3/uL; Basophil% 0.7 % (0-1); Eosinophils% 1.8 % (0-5); Hematocrit 48.4 % (40-54); Hemoglobin 15.5 g/dL (13.0-16.5); Lymphocyte # 1.16 X10^3/ul (4.0); Mean Corpuscular Hgb 31.6 pg (27.0-32.0); Mean Corpuscular Volume 98.6 fL (80-94); Mean Platelet Vol. 10.4 fl (6.2-12.0); Monocyte# 0.72 X10^3/uL; NRBC Flagged by Analyzer 0 % (0-5); Neutrophil # 3.49 X10^3/uL (2.7-7.7); Neutrophil % 63.1 % (47-70); Platelet Count 176 K/mm3 (150-450); RBC Distribution Width SD 46.8 fl (35.1-43.9); Red Blood Count 4.91 M/mm3 (4.6-6.2); White Blood Count 5.5 K/mm3 (4.4-11.0)
[2020-12-19 10:40] LABS: Anion Gap 4 (5-15); BUN 15 mg/dL (7-18); BUN/Creat Ratio 19.6 RATIO (10-20); Calcium,Total 8.9 mg/dL (8.5-10.1); Chloride 108 mmol/L (98-107); Creatinine, Serum 0.76 mg/dL (0.70-1.30); EST Glomerular Filtration Rate 104 mL/min (>60); Est Glom Filt Rate - Afr Amer 126 mL/min (>60); Glucose 99 mg/dL (74-106); Potassium 4.2 mmol/L (3.5-5.1); Sodium Level 144 mmol/L (136-145)
[2020-12-20 10:35] VITALS: BMI 32.3
--- NOTE | 2020-12-21 07:00 | HP_ITS ---
[facility] History of Present Illness Details: 79-year-old gentleman with recently diagnosed significant coronary artery disease. He presented to the emergency room and had an ST elevation myocardial infarction involving the inferior wall in October 2019. He underwent a cardiac catheterization which demonstrated a high-grade right coronary artery lesion. He underwent angioplasty and stenting to the above vessel. He was noted to have residual disease in the left anterior descending artery. The circumflex artery did not have any significant stenosis. His ejection fraction was preserved. He underwent an exercise stress test in November 2019 where he exercised to a moderate metabolic workload of almost 6 metabolic equivalents without any evidence of ischemia. He also has a history of loop recorder placement on the account of syncope, JULIANNA with CPAP and oxygen therapy, and right bundle branch block. He denies chest, arm, jaw, or neck discomfort. His exercise tolerance is stable. He denies symptoms of palpitations, lightheadedness, dizziness, near syncope, or syncopal episodes. He denies edema or claudication issues. He denies orthopnea, PND, fever, chills, blood in urine, blood in stool, epistaxis, myalgia, or unexplainable fatigue. He states numbness in his legs when he walks. He continues with SOB on exertion. This is not new or worsening. This is attributed to [place] lung. He states at home his blood pressure better controlled at home and is usually low. 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 [Ecotrin] 81 mg PO DAILY@0800 #90 tab 11/23/19 [Rx Confirmed 10/13/20] metoprolol tartrate 25 mg tablet 12.5 mg PO DAILY #180 tab 12/17/19 [Rx Confirmed 10/13/20] atorvastatin 80 mg tablet 80 mg PO QHS #90 tab 02/23/20 [Rx Confirmed 10/13/20] cyanocobalamin (vitamin B-12) 1,000 mcg/mL injection solution 1,000 mcg IM Q4W ml 04/13/20 [History Confirmed 10/13/20] fluticasone furoate 200 mcg-vilanterol 25 mcg/dose inhalation powder 1 ea INHALATION DAILY 04/13/20 [History Confirmed 10/13/20] levothyroxine 100 mcg tablet 100 mcg PO DAILY tab 04/13/20 [History Confirmed 10/13/20] clopidogrel 75 mg tablet 75 mg PO DAILY tab 10/13/20 [History Confirmed 10/13/20] montelukast 10 mg tablet 10 mg PO DAILY 10/13/20 [History Confirmed 10/13/20] [facility] Medical History (Updated 10/13/20 @ 11:01 by Rufus Webber LABORER POWERHOUSE, LABORER POWERHOUSE-C) Atherosclerosis of coronary artery of [place] heart without angina pectoris (Chronic) History of ST elevation myocardial infarction (STEMI) (Chronic 11/21/19) 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) Right bundle branch block (RBBB) (Chronic) Asthma (Chronic) Diverticulitis of colon (without mention of hemorrhage) (Chronic) 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) Hypothyroidism (Chronic) Nocturnal hypoxemia (Chronic) 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) Obesity (BMI 30.0-34.9) (Chronic) Obstructive sleep apnea (Chronic) Vitamin B 12 deficiency (Chronic) Acute inferior myocardial infarction (Resolved 11/21/19) STEMI (ST elevation myocardial infarction) (Resolved 11/21/19) Syncope (Resolved) Unstable angina pectoris due to coronary arteriosclerosis (Resolved) Hyperglycemia (Inactive) Surgical History History of coronary artery stent placement (Resolved 11/21/19) History of loop recorder (Chronic 01/13/19) History of ERCP (Resolved) History of cataract surgery (Resolved) History of tonsillectomy (Resolved) Hx of cholecystectomy (Resolved) Family History Mother Heart disease PPM Hypertension Brother Heart disease Has ICD Father Heart disease PPM Colon cancer ROS Const Const: Negative for fatigue, weakness, body ache, fever(s) or chills ENT ENT: Negative for dizziness Cardio Chest Pain: No Palpitations: No Edema: None Muscle aches with walking: None Resp Respiratory: Positive for SOB with activity and Cough (in the morning); negative for SOB at rest, SOB orthopnea\SOB lying down or paroxysmal nocturnal dyspnea GI GI: Negative nausea, vomiting blood/hematemesis, bright, red blood in stools or black,tarry stools : Negative for hematuria or frequent nighttime urination/ nocturia Musc Musc: Negative for muscle aches/ myalgia Skin Skin: Negative non-healing lesions or rash Neuro Neuro: Negative for dizziness, lightheadedness, near syncope, syncope, orthostatic symptoms or weakness Endo Endo: Negative for fatigue Allergy Allergy/Immunology: Negative for rash Cardiology Exam Const Appearance: cooperative, healthy appearing, comfortable and no acute distress Nutritional Appearance: well nourished and obese Orientation: alert, awake and oriented x3 Head Head: normal to inspection Ears: hearing grossly normal bilaterally Nose: external nose normal Face and Sinus: face symmetric Mouth: oral mucosae normal Eyes General: appearance normal, both eyes and all related structures Eyelids: eyelids normal EOM: EOM intact bilaterally Neck Neck: normal visual inspection and no JVD Carotids: normal carotid upstroke Chest Chest inspection: normal inspection of the chest, symmetric chest movement and normal respiratory effort; negative cough Auscultation: Left: Diminished Lung Sounds, Right: Clear to Auscultation Cardio Rate: regular rate Rhythm: regular rhythm Heart sounds: S1 normal and S2 normal; negative rub, gallop or murmur GI GI: normal to inspection and obese Neuro General: alert, awake, oriented x3 and CN's II-XI intact bilaterally Skin Skin: no rashes or lesions noted Extremities Pulses: Normal: Right Posterior Tibial Pulse, Left Posterior Tibial Pulse, Right Radial Pulse, Left Radial Pulse Lower Extremity Edema: None: Bilateral Psych Psychological: normal affect Assessment & Plan 1. Atherosclerosis of [place] coronary artery of [place] heart without angina pectoris I25.10 Plan Patient denies any chest pain, arm pain, jaw pain, neck pain, new or worsening shortness of breath, or fatigue suggestive of angina at this time. We will continue to monitor. We will not make any medication regimen changes and will continue risk factor modification. Given his ongoing shortness of breath and previous heart catheterization October 2019 showing residual 80% stenosis of mid LAD, he is asked undergo repeat stress test to evaluate further. Based on results, further recommendation will be made. Orders Orders: Nuclear Stress Test - Chemical 2 Months 2. History of coronary artery stent placement Z95.5 PCI-KELSI to mid RCA using a 3.5 x 16 mm synergy 11/21/2019 Plan He will continue current medical therapy. He will continue risk factor lifestyle modification. 3. History of loop recorder Z98.890 placed in November of 2018 after a syncopal episode Plan His most recent loop recorder check from 09/20/2020 showed no patient activated symptoms, 1 tachycardia episode, no bradycardia, no pauses, and no AT/AF episodes since 07/31/2020. Electrogram for tachycardia episode on 09/13/2020 shows what appears to be supraventricular tachycardia 158 beats minute for approximately 15 minutes and 58 seconds. Presenting rhythm shows normal sinus rhythm at 60 bpm. Battery okay. Plan Detail Other Medications Changed: From: clopidogrel 75 mg PO take 4 tablets all at once on day 1: take 1 tablet by mouth daily thereafter; 90 tabs 3RF To: clopidogrel 75 mg PO DAILY Additional Comments Thank you for allowing us to participate in the patients plan of care, if you have any questions please do not hesitate to call. This note was generated using a voice recognition system and there may be incorrect words, spelling or punctuation that were not noted when reviewing the office note prior to saving. 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) Coding Level of Care Code Off vis,est,level 4 Diagnoses Atherosclerosis of [place] coronary artery of [place] heart without angina pectoris I25.10 ??Coronary Disease-Associated Artery/Lesion type: [place] artery History of coronary artery stent placement Z95.5 History of loop recorder Z98.890 Coding Level of Care Code Off vis,est,level 4 Diagnoses Atherosclerosis of [place] coronary artery of [place] heart without angina pectoris I25.10 ??Coronary Disease-Associated Artery/Lesion type: [place] artery History of coronary artery stent placement Z95.5 History of loop recorder Z98.890 Supplemental Info Supplemental Information Carotid duplex ultrasound from 12/03/2018: Interpretation Summary No hemodynamically significant plague or stenosis bilateral external or internal carotid arteries with <50% stenosis bilaterally. Patent and antegrade vertebrals bilaterally Cardiac intervention from 11/21/2019: CONCLUSIONS Successful KELSI to mid RCA using a 3.5x16 synergy KELSI which was post dilated with a [id number] NC balloon. Also of note, it took additional time due to access problems along with patient having a tortuous anatomy in his right brachiocephalic trunk which delayed the the targeted door to balloon time. The 80% mid LAD stenosis will be addressed at a later date. RECOMMENDATIONS Highly recommend quitting all tobacco products Follow up with primary zoning technician Risk factor modification ASA Indefinitley Plavix for at least 12 months Routine post interventional care Refer for Outpatient Cardiac Rehab Manual sheath removal per protocol CORONARY ANGIOGRAPHY DOMINANCE: Right Dominant LEFT HEART ASSESSMENT Left Ventricular Ejection Fraction: by LV Gram 55-60 % Mild inferior hypokinesis Inferior Mid Hypokinesis - Mild LEFT ANTERIOR DESCENDING ARTERY: MID LAD: 80 % Stenosis RIGHT CORONARY ARTERY: MID RCA: 90 % Stenosis Echocardiogram from 11/22/2019: Interpretation Summary The estimated ejection fraction is 65 %. Stage 1 diastolic dysfunction. Trivial mitral valve insufficiency. Unable to estimate RV systolic pressure due to insufficient tricuspid regurgitant envelope. Compared to echo report dated 12/04/2018, no appreciable changes noted. The study was technically difficult. Contrast injection was performed. Stress test from 12/24/2019: Conclusion: Normal exercise myocardial perfusion stress test at a moderate workload. Preserved ejection fraction. Diagnostics Electrocardiogram 12/17/19 Stress Test Nuclear Medicine 12/24/19 Stress Test 12/24/19 Pacemaker Check 09/15/20
--- NOTE | 2020-12-21 08:57 | HP.PCM_ITS ---
History and Physical Date of Admission: 12/21/20 80-year-old gentleman with recently diagnosed significant coronary artery disease. He presented to the emergency room and had an ST elevation myocardial infarction involving the inferior wall in October 2019. He underwent a cardiac catheterization which demonstrated a high-grade right coronary artery lesion. He underwent angioplasty and stenting to the above vessel. He was noted to have residual disease in the left anterior descending artery. The circumflex artery did not have any significant stenosis. His ejection fraction was preserved. He underwent an exercise stress test in November 2019 where he exercised to a moderate metabolic workload of almost 6 metabolic equivalents without any evidence of ischemia. He also has a history of loop recorder placement on the account of syncope, JULIANNA with CPAP and oxygen therapy, and right bundle branch block. At office appointment in September 2020 he expressed concerning symptoms for progressive coronary artery disease that included shortness of breath. He underwent a stress test on 12/14/2020 that was abnormal. He presents today for a left heart catheterization. He denies chest, arm, jaw, or neck discomfort. His exercise tolerance is stable. He denies symptoms of palpitations, lightheadedness, dizziness, near syncope, or syncopal episodes. He denies edema or claudication issues. He denies orthopnea, PND, myalgia, or unexplainable fatigue. He continues with SOB on exertion. This is not new or worsening. He attributes this to [place] lung. 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) Right bundle branch block (RBBB) (Chronic) Asthma (Chronic) Diverticulitis of colon (without mention of hemorrhage) (Chronic) Elevated diaphragm (Chronic) [place]' lung disease (Chronic) Gallstone pancreatitis (Chronic) Hypothyroidism (Chronic) Nocturnal hypoxemia (Chronic) 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) Obesity (BMI 30.0-34.9) (Chronic) Obstructive sleep apnea (Chronic) Vitamin B 12 deficiency (Chronic) Acute inferior myocardial infarction (Resolved 11/21/19) STEMI (ST elevation myocardial infarction) (Resolved 11/21/19) Syncope (Resolved) Unstable angina pectoris due to coronary arteriosclerosis (Resolved) Hyperglycemia (Inactive) Surgical History History of coronary artery stent placement (Resolved 11/21/19) History of loop recorder (Chronic 01/13/19) History of ERCP (Resolved) History of cataract surgery (Resolved) History of tonsillectomy (Resolved) Hx of cholecystectomy (Resolved) Family History Mother Heart disease PPM Hypertension Brother Heart disease Has ICD Father Heart disease PPM Colon cancer ROS Const Const: Negative for fatigue, weakness, body ache, fever(s) or chills ENT ENT: Negative for dizziness Cardio Chest Pain: No Palpitations: No Edema: None Muscle aches with walking: None Resp Respiratory: Positive for SOB with activity and Cough (in the morning); negative for SOB at rest, SOB orthopnea\SOB lying down or paroxysmal nocturnal dyspnea GI GI: Negative nausea, vomiting blood/hematemesis, bright, red blood in stools or black,tarry stools : Negative for hematuria or frequent nighttime urination/ nocturia Musc Musc: Negative for muscle aches/ myalgia Skin Skin: Negative non-healing lesions or rash Neuro Neuro: Negative for dizziness, lightheadedness, near syncope, syncope, orthostatic symptoms or weakness Endo Endo: Negative for fatigue Allergy Allergy/Immunology: Negative for rash Cardiology Exam Const Appearance: cooperative, healthy appearing, comfortable and no acute distress Nutritional Appearance: well nourished and obese Orientation: alert, awake and oriented x3 Head Head: normal to inspection Ears: hearing grossly normal bilaterally Nose: external nose normal Face and Sinus: face symmetric Mouth: oral mucosae normal Eyes General: appearance normal, both eyes and all related structures Eyelids: eyelids normal EOM: EOM intact bilaterally Neck Neck: normal visual inspection and no JVD Carotids: normal carotid upstroke Chest Chest inspection: normal inspection of the chest, symmetric chest movement and normal respiratory effort; negative cough Auscultation: Left: Diminished Lung Sounds, Right: Clear to Auscultation Cardio Rate: regular rate Rhythm: regular rhythm Heart sounds: S1 normal and S2 normal; negative rub, gallop or murmur GI GI: normal to inspection and obese Neuro General: alert, awake, oriented x3 and CN's II-XI intact bilaterally Skin Skin: no rashes or lesions noted Extremities Pulses: Normal: Right Posterior Tibial Pulse, Left Posterior Tibial Pulse, Right Radial Pulse, Left Radial Pulse Lower Extremity Edema: None: Bilateral Psych Psychological: normal affect Assessment & Plan 1. Atherosclerosis of [place] coronary artery of [place] heart without angina pectoris I25.10 Plan Due to his ongoing shortness of breath and abnormal stress test. He will proceed with left heart catheterization. Based on results, further recommendation will be made. 2. History of coronary artery stent placement Z95.5 PCI-KELSI to mid RCA using a 3.5 x 16 mm synergy 11/21/2019 Plan He will continue current medical therapy. He will continue risk factor lifestyle modification. 3. History of loop recorder Z98.890 placed in November of 2018 after a syncopal episode Plan His most recent loop recorder check from 09/20/2020 showed no patient activated symptoms, 1 tachycardia episode, no bradycardia, no pauses, and no AT/AF episodes since 07/31/2020. Electrogram for tachycardia episode on 09/13/2020 shows what appears to be supraventricular tachycardia 158 beats minute for approximately 15 minutes and 58 seconds. Presenting rhythm shows normal sinus rhythm at 60 bpm. Battery okay. Supplemental Info Supplemental Information Carotid duplex ultrasound from 12/03/2018: Interpretation Summary No hemodynamically significant plague or stenosis bilateral external or internal carotid arteries with <50% stenosis bilaterally. Patent and antegrade vertebrals bilaterally Cardiac intervention from 11/21/2019: CONCLUSIONS Successful KELSI to mid RCA using a 3.5x16 synergy KELSI which was post dilated with a [id number] NC balloon. Also of note, it took additional time due to access problems along with patient having a tortuous anatomy in his right brachiocephalic trunk which delayed the the targeted door to balloon time. The 80% mid LAD stenosis will be addressed at a later date. RECOMMENDATIONS Highly recommend quitting all tobacco products Follow up with primary building code inspector Risk factor modification ASA Indefinitley Plavix for at least 12 months Routine post interventional care Refer for Outpatient Cardiac Rehab Manual sheath removal per protocol CORONARY ANGIOGRAPHY DOMINANCE: Right Dominant LEFT HEART ASSESSMENT Left Ventricular Ejection Fraction: by LV Gram 55-60 % Mild inferior hypokinesis Inferior Mid Hypokinesis - Mild LEFT ANTERIOR DESCENDING ARTERY: MID LAD: 80 % Stenosis RIGHT CORONARY ARTERY: MID RCA: 90 % Stenosis Echocardiogram from 11/22/2019: Interpretation Summary The estimated ejection fraction is 65 %. Stage 1 diastolic dysfunction. Trivial mitral valve insufficiency. Unable to estimate RV systolic pressure due to insufficient tricuspid regurgitant envelope. Compared to echo report dated 12/04/2018, no appreciable changes noted. The study was technically difficult. Contrast injection was performed. Stress test from 12/14/2020: Conclusion: Pharmacologic myocardial perfusion stress test with mild to distal anterior ischemia. Preserved ejection fraction. Stress test from 12/24/2019: Conclusion: Normal exercise myocardial perfusion stress test at a moderate workload. Preserved ejection fraction. Procedure Criteria Procedure Type: Elective COVID Risk Discussion: The surgeon/proceduralist and patient have discussed in detail the risk of exposure to and/or potential harm posed by the COVID-19 virus with having a surgery/procedure at this time versus the risk of delaying the surgery/procedure. It is not possible to know either the risk of delaying the s urgery or procedure or chance of getting an infection with perfect accuracy, but a joint decision was made between the patient and the surgeon/proceduralist to proceed at this time with the scheduled surgery/procedure as indicated on the consent form.
--- NOTE | 2020-12-21 10:17 | CL.D_ITS ---
Patient Name: LURDES HERNANDES Study Date: 12/21/2020 Performing: Vaughn Wang MD Ht: 70.07 inches 178 cm : 1940 Wt: 224.87 lbs 102 kg Age: 80 Gender: male BSA: 2.2 PROCEDURE(S) PERFORMED [id number]-[id number]/COR/LV CLINICAL PROFILE AND INDICATIONS Indications: Worsening Angina Heart Failure: None Stress/Imaging Date: 12/15/20 CAD Presentations: Stable angina. CONCLUSIONS Previously placed stent in the mid to distal right coronary artery is patent. The left anterior desc ending artery lesion in the mid segment is at most 60%. The left circumflex artery has minimal disea se. He has a tortuous aorta. RECOMMENDATIONS Medical therapy DESCRIPTION OF PROCEDURE The patient arrived to the procedure lab. The risks and benefits of the procedure as well as a full d escription of our services here and current unavailability of surgical backup were fully explained to the patient and/or their significant other prior to the catheterization. The Timeout was completed, verifying the correct patient and procedure. The patient's procedural site was prepped and draped in the usual fashion. Local anesthetic was given subcutaneously to right radial region with Lidocaine 2% . Using a modified Seldinger technique, arterial access was obtained via the right radial artery, a 6 Fr sheath was inserted. Left Coronary Artery selective angiography was performed in multiple views u sing a 6 Fr. JL4 x 125cm catheter. Right Coronary Artery selective angiography was then performed in multiple views using a 6 Fr. x 125cm JR 4 catheter. Left Ventriculography was performed in STEPHENSON projec tion using a 6 Fr. x 125cm Pigtail catheter. LV to AO pullback pressures were then recorded.The arterial sheath was pulled and a TR Band was applied for hemostasis 12cc air CORONARY ANGIOGRAPHY DOMINANCE: Right Dominant LEFT HEART ASSESSMENT Left Ventricular Ejection Fraction: by LV Gram 60 % Normal LV wall motion Normal Left Ventricular systolic function LEFT MAIN: Mild calcification LEFT ANTERIOR DESCENDING ARTERY: MID LAD: 55 % Stenosis CIRCUMFLEX ARTERY: Mild luminal irregularities RIGHT CORONARY ARTERY: Mild luminal irregularities less than 30% MID RCA: Previously placed stent is patent COMPLICATIONS No Complications PROCEDURE MEDICATIONS Fentanyl 50 mcg IV Versed 1 mg IV Oxygen: 2 L/min via nasal cannula Heparin diluted in 23cc Heparinized saline. Patient given 10cc IA of this solution. 12/21/2020 08:06: 54 Verapamil 2.5mg, Ntg 100mcgs, 2000 units of Heparin diluted in 23cc Heparinized saline. Patient give n 10cc IA of this solution. 12/21/2020 08:06:54 SUMMARY OF HEMODYNAMIC DATA Time AIR REST ECG 07:04:13 AO 91/52 (69) SA 08:11:24 AO 113/57 (80) 08:23:42 LV 107/7, 17 08:46:15 LV 109/6, 17 08:46:21 LV 103/8, 20 08:47:00 LVp 107/7, 20 08:47:04 AOp 117/58 (82) 08:47:09 Signed By Vaughn Wang MD On 12/21/2020 10:16:47 Vaughn Wang MD
== END 2020-12-21 11:30 | disposition home or self-care (01) ==
LOC: CLSP 06:42
PROVIDERS: PCP Internal Medicine; Referring Provider Internal Medicine Cardiovascular Disease; Visit Provider Internal Medicine Cardiovascular Disease
DX: I25.110 Atherosclerotic heart disease of native coronary artery with unstable angina pectoris (principal); G47.33 Obstructive sleep apnea (adult) (pediatric); J45.909 Unspecified asthma, uncomplicated; J67.0 Farmer's lung; N40.0 Benign prostatic hyperplasia without lower urinary tract symptoms; E66.9 Obesity, unspecified; Z79.02 Long term (current) use of antithrombotics/antiplatelets; Z79.899 Other long term (current) drug therapy; I25.2 Old myocardial infarction; Z79.82 Long term (current) use of aspirin; Z95.5 Presence of coronary angioplasty implant and graft
CPT/HCPCS: 36415; 71046; 80048; 85025; 93458; 99152; 99153; J7040; Q9967; C1769; C1894

== ENCOUNTER → 2021-04-25 08:48 | Outpatient (CLI) | payer MEDICARE, OTHER, SELFPAY ==
[2021-04-24 14:00] VITALS: BMI 31.8
[2021-04-25 10:43] LABS: AST(SGOT) 22 U/L (15-37); Alanine Aminotransfer ALT/SGPT 30 U/L (16-61); Albumin, Serum 3.6 g/dL (3.2-5.0); Alkaline Phosphatase 142 U/L (45-117); Bilirubin, Direct 0.23 mg/dL (0.00-0.30); Cholesterol 90 mg/dL (200); Globulin 3.2 g/dL (2.2-4.2); High Density Lipoprotein 54 mg/dL; Protein, Total 6.8 g/dL (6.4-8.2); Triglycerides 57 mg/dL; Very Low Density Lipoprotein 11 mg/dL (5-40)
== END ==
PROVIDERS: PCP Internal Medicine; Referring Provider Internal Medicine Cardiovascular Disease; Visit Provider Internal Medicine Cardiovascular Disease
DX: I25.10 Atherosclerotic heart disease of native coronary artery without angina pectoris (principal); E78.00 Pure hypercholesterolemia, unspecified
CPT/HCPCS: 36415; 80061; 80076

== ENCOUNTER 2021-06-25 14:27 | Emergency (ER) | payer MEDICARE, OTHER, SELFPAY ==
[2021-06-25] VITALS (12 sets, daily range): BP systolic 115–131; BP diastolic 56–79; PULSE 63–67; RESP 16–26; TEMP 35.7–35.8; O2SAT 90–98; BMI 33.3
--- NOTE | 2021-06-25 14:28 | CT_ITS ---
STUDY: CT HEAD STROKE PROTOCOL W/O CONTRAST INJECTION REASON FOR EXAM: Male, 80 years old. Neuro deficit, acute, stroke suspected RADIATION DOSAGE (If Supplied By Facility): CTDIvol = ( 44.99 ) mGy, DLP = ( a 46.73 ) mGycm TECHNIQUE: Transaxial CT imaging of the brain was performed without administration of intravenous contrast material. Individualized dose optimization techniques were used for this CT. COMPARISON: No relevant priors. FINDINGS: Laceration overlying the posterior aspect of the right occipital and parietal bones. Normal calvarium. There is evidence of petechial hemorrhage within the right temporal parietal lobes with surrounding edema. With the finding of the overlying laceration, this may represent contusion of the right temporal parietal lobes. The other differential diagnosis to consider should include focal hemorrhagic infarct with fall and causing the overlying laceration. There is mild cerebral atrophy with widening of the extra-axial spaces and ventricular dilatation. There are areas of decreased attenuation within the white matter tracts of the supratentorial brain, consistent with microvascular disease changes. Normal basal ganglia and thalami. Normal brainstem. There is mild cerebellar atrophy. Atherosclerotic calcification of the cavernous portions of the internal carotid arteries as well as the cerebral arteries. Normal visualized paranasal sinuses. CT/STROKE Brain/Head without Cont IMPRESSION: Petechial hemorrhage and edema within the right temporal parietal lobes as described. Scalp laceration overlying the posterior occipital parietal bones. The differential diagnosis to be considered should include the a fall with laceration and a petechial contusion versus hemorrhagic infarct causing a fall with overlying laceration. N.B. : The above Results were Read Back by Dwaine Singh MD to Winn DO, and understanding confirmed on 06/25/2021 14:46:30 (ET). Electronically Signed: Dwaine Singh MD at 14:47 EDT , Service support ,
--- NOTE | 2021-06-25 14:28 | EKG12_ITS ---
Test Reason : STROKE TEAM Blood Pressure : / mmHG Vent. Rate : 064 BPM Atrial Rate : 064 BPM P-R Int : 228 ms QRS Dur : 150 ms QT Int : 460 ms P-R-T Axes : 028 068 008 degrees QTc Int : 474 ms Sinus rhythm with 1st degree A-V block Non-specific intra-ventricular conduction block Abnormal ECG Confirmed by AZUCENA SANTORO, PAM ([id number]), avid editor ALLISON BUTLER ([id number]) on 06/27/2021 11:24:15 AM Referred By: DANIKA Confirmed By:PAM ZENG MD
--- NOTE | 2021-06-25 14:28 | RAD_ITS ---
STUDY: X-RAY CHEST REASON FOR EXAM: Male, 80 years old. Neuro deficit, acute, stroke suspected TECHNIQUE: Single AP portable view of the chest. COMPARISON: Comparison is made with prior study 12/19/2020. FINDINGS: EKG electrodes are seen. Mild degree of increased markings at the lung bases suggestive of mild scarring. There is no demonstrated pleural abnormality. Normal size heart. A loop recording device is seen overlying the left heart border. Normal mediastinum and laureen. Normal visualized pulmonary arteries. Normal visualized aortic arch and descending thoracic aorta. Normal visualized thoracic spine. Normal visualized ribs, clavicles, and shoulders. There is no demonstrated abnormality of the visualized soft tissue structures of the upper abdomen. RAD/Chest 1 View IMPRESSION: Mild degree of increased linear markings at the lung bases suggestive of scarring and/or atelectasis. Electronically Signed: Dwaine Singh MD at 15:51 EDT , Service support ,
--- NOTE | 2021-06-25 14:35 | NURSING ---
STROKE ALERT CALLED 1422, 3 MIN OUT
[2021-06-25 14:44] LABS: Absolute Lymphocyte Count 1.37 X10^3/uL (0.83-4.51); Absolute Neutrophil Count 4.6 X10^3/uL (2.0-7.7); Basophil# 0.06 X10^3/uL; Basophil% 0.9 % (0-1); Eosinophil# 0.11 X10^3/uL; Eosinophils% 1.6 % (0-5); Hematocrit 47.3 % (40-54); Lymphocyte # 1.37 X10^3/ul (0.83-4.51); Lymphocyte % 19.4 % (19-41); Mean Corp Hgb Conc 31.7 g/dL (32-36); Mean Corpuscular Hgb 31.4 pg (27.0-32.0); Mean Corpuscular Volume 99.2 fL (80-94); Mean Platelet Vol. 9.9 fl (6.2-12.0); Monocyte# 0.85 X10^3/uL; Monocyte% 12.1 % (0-10); NRBC Flagged by Analyzer 0 % (0-5); Neutrophil # 4.62 X10^3/uL (2.7-7.7); Neutrophil % 65.4 % (47-70); Platelet Count 168 K/mm3 (150-450); RBC Distribution Width SD 47.8 fl (35.1-43.9); Red Blood Count 4.77 M/mm3 (4.6-6.2); White Blood Count 7.1 K/mm3 (4.4-11.0)
[2021-06-25 14:53] LABS: International Normalized Ratio 1.1; Partial Thromboplast Time 24.2 Seconds (24.1-36.2); Prothrombin Time (Protime)PT. 13.9 SECONDS (11.7-14.9)
--- NOTE | 2021-06-25 14:53 | CHAPLAIN ---
Type of Pastoral Visit ___ Initial Visit ___ Follow-up Visit ___ On-call Visit ___ General Patient Visit ___ Spiritual Assessment ___ Family Conference ___ Bereavement ___ Rapid Response ___ Code Blue ___ Other (describe below) Pastoral Care Referral From ___ Patient ___ Family ___ Nurse ___ Physician ___ Junior Staff Accountant ___ Venue Manager ___ Other (describe below) Sacrament/Intervention ___ Active listening ___ Anointing ___ Taoist ___ Bereavement ___ Communion ___ Eleni exploration ___ ___ Life review ___ Prayer ___ Reconciliation ___ Sacrament of Sick ___ Supportive presence ___ Wedding ___ Other (describe below) Pastoral Comments came for this stroke alert; pt was being attended to and decision had been made to transfer pt out; no family is present at this time
--- NOTE | 2021-06-25 15:00 | EDS_ITS ---
HPI History of Present Illness Chief Complaint: Neuro S/Sx Informant: patient and EMS Onset/Context/Timing Onset: Today Context: Sudden Onset Timing: Continuous Worsened by: Nothing Relieved by: Nothing Associated Symptoms Associated Symptoms: Positive for Headache, Nausea and Vomiting Narrative Narrative: Patient presents with stroke symptoms that occurred today. Patient does not remember what happened. Patient states he was outside working and woke up on the ground. called EMS. EMS noted a laceration to the back of his head. Patient does not remember falling. Patient denies any chest pain or shortness of breath. Patient denies any visual changes. Patient denies any numbness tingling weakness. EMS reported patient was having some nausea and vomiting earlier. 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) Right bundle branch block (RBBB) STEMI (ST elevation myocardial infarction) (11/21/19) Syncope Unstable angina pectoris due to coronary arteriosclerosis Vitamin B 12 deficiency Home Medications aspirin 81 mg PO DAILY@0800 #90 tab 11/23/19 [Rx Last Taken 12/21/20] cyanocobalamin (vitamin B-12) 1,000 mcg/mL injection solution 1,000 mcg IM Q4W ml 04/13/20 [History Last Taken Unknown] fluticasone furoate 200 mcg-vilanterol 25 mcg/dose inhalation powder 1 ea INHALATION DAILY 04/13/20 [History Last Taken 12/21/20] montelukast 10 mg tablet 10 mg PO DAILY 10/13/20 [History Last Taken Unknown] atorvastatin 80 mg tablet 80 mg PO QHS #90 tab 02/07/21 [Rx Last Taken Unknown] metoprolol tartrate 25 mg tablet 12.5 mg PO DAILY #45 tab 02/07/21 [Rx Last Taken Unknown] clopidogrel 75 mg tablet 75 mg PO DAILY #90 tab 04/24/21 [Rx Last Taken Unknown] levothyroxine 112 mcg tablet 112 mcg PO DAILY tab 04/24/21 [History Last Taken Unknown] Allergy/AdvReac Type Severity Reaction Status Date / Time Penicillins Allergy Rash Verified 06/25/21 14:58 Family History Mother Heart disease PPM Hypertension Brother Heart disease Has ICD Father Heart disease PPM Colon cancer Surgical History History of cataract surgery History of coronary artery stent placement (11/21/19) History of ERCP History of left heart catheterization (12/21/20) History of loop recorder (01/13/19) History of tonsillectomy Hx of cholecystectomy Social History Smoking Status: Never smoker ROS ROS ED Constitutional Constitutional ED: Denies chills or fever(s) Eyes Eyes: Denies blurry vision or change in vision ENT ENT ED: Denies rhinorrhea or sore throat Cardiovascular Cardiovascular: Denies chest pain or palpitations Respiratory/Chest Respiratory/Chest: Denies cough or dyspnea Gastrointestinal Gastrointestinal: Denies nausea or vomiting Genitourinary Genitourinary ED: Denies dysuria or hematuria Musculoskeletal Musculoskeletal: Denies back pain or neck pain Integumentary Denies abscess or rash Neurologic Neurologic: Reports headache(s); Denies weakness Allergic/Immunologic Allergic/Immunologic ED: Denies mouth swelling or urticaria EXAM Physical Exam Const Vital Signs: 06/25/21 14:35 06/25/21 14:39 06/25/21 14:51 Temperature 96.3 F L 96.5 F L Temperature Source Temporal Temporal Pulse Rate 64 65 65 Respiratory Rate 24 H 20 H 20 H Blood Pressure 115/79 115/79 131/63 H Blood Pressure Mean 91 91 85 Pulse Ox 98 93 95 Oxygen Delivery Method Nasal Cannula Room Air Nasal Cannula Oxygen Flow Rate (L/min) 4 2 06/25/21 14:52 06/25/21 14:53 06/25/21 15:02 Temperature Temperature Source Pulse Rate 65 Respiratory Rate 26 H Blood Pressure 125/68 H Blood Pressure Mean 87 Pulse Ox 96 95 Oxygen Delivery Method Nasal Cannula Room Air Nasal Cannula Oxygen Flow Rate (L/min) 2 2 2 06/25/21 15:16 06/25/21 15:30 06/25/21 15:36 Temperature Temperature Source Pulse Rate 67 64 Respiratory Rate 26 H 16 Blood Pressure 120/60 116/71 116/71 Blood Pressure Mean 80 86 86 Pulse Ox 96 98 Oxygen Delivery Method Nasal Cannula Nasal Cannula Oxygen Flow Rate (L/min) 2 2 06/25/21 15:45 06/25/21 16:00 06/25/21 16:12 Temperature Temperature Source Pulse Rate 64 63 64 Respiratory Rate 25 H 25 H 23 H Blood Pressure 120/59 L 121/56 H 121/56 H Blood Pressure Mean 79 77 77 Pulse Ox 97 98 98 Oxygen Delivery Method Nasal Cannula Nasal Cannula Oxygen Flow Rate (L/min) 2 2 06/25/21 16:15 Temperature Temperature Source Pulse Rate 64 Respiratory Rate 24 H Blood Pressure 128/56 H Blood Pressure Mean 80 Pulse Ox 95 Oxygen Delivery Method Nasal Cannula Oxygen Flow Rate (L/min) 2 Positive well nourished and well developed General Appearance ED: well developed HEENT Reports moist mucous membranes Neck supple and no JVD Resp normal respiratory effort and clear to auscultation bilaterally Cardio regular rate, regular rhythm and no murmurs Rate: regular rate Rhythm: regular rhythm GI normal to inspection, nondistended, normoactive bowel sounds and non-tender Palpation: soft Extremity normal to inspection General Extremety ED: Negative for edema or tenderness General Extremity: Negative for edema Neuro oriented x3, CN's II-XII intact bilaterally and no sensory deficits noted Sensorium / Orientation: alert Motor Exam: strength 5/5 throughout Psych mental status grossly normal Skin no rashes or lesions noted Skin Narrative: There is a laceration over the occipital scalp. STROKE Vital Signs/Narrative: Vital Signs Temp Pulse Resp BP Pulse Ox 06/25/21 16:15 64 24 H 128/56 H 95 06/25/21 16:12 64 23 H 121/56 H 98 06/25/21 16:00 63 25 H 121/56 H 98 06/25/21 15:45 64 25 H 120/59 L 97 06/25/21 15:36 116/71 06/25/21 15:30 64 16 116/71 98 06/25/21 15:16 67 26 H 120/60 96 06/25/21 15:02 65 26 H 125/68 H 95 06/25/21 14:52 96 06/25/21 14:51 65 20 H 131/63 H 95 06/25/21 14:39 96.5 F L 65 20 H 115/79 93 06/25/21 14:35 96.3 F L 64 24 H 115/79 98 MDM MDM MDM Narrative Medical decision making narrative: Patient does not take any anticoagulants. CT scan of the brain shows petechial hemorrhage and edema within the right temporal parietal lobes. This was interpreted by the radiologist and reviewed by myself. CBC was within normal limits. PT with INR and PTT were normal. Patient was evaluated by stroke neurologist at [facility]. He accepted the transfer of the patient. Because of the bleeding, patient is not a candidate for TPA. Patient is agreeable to be transferred to [facility]. There is a 3 cm full-thickness linear scalp laceration over the right occipital scalp. There is an arteriolar bleed noted. The wound was cleaned and anesthetized 1% lidocaine with epinephrine. The wound was closed with 6 jonathan. Surgifoam, ABD, and gauze dressing was applied. Patient tolerated procedure well. Patient will be transferred to [facility] emergency department to the service of Dr. Gleason. Lab Data Attestation: I reviewed the patient's lab results. Labs: Laboratory Results - last 24 hr 06/25/21 06/25/21 06/25/21 14:37 14:37 14:37 WBC 7.1 RBC 4.77 Hgb 15.0 Hct 47.3 MCV 99.2 H MCH 31.4 MCHC 31.7 L RDW Std Deviation 47.8 H RDW Coeff of Dejuan 13.0 Plt Count 168 MPV 9.9 Immature Gran % (Auto) 0.600 Neut % (Auto) 65.4 Lymph % (Auto) 19.4 [place] % (Auto) 12.1 H Eos % (Auto) 1.6 Baso % (Auto) 0.9 Absolute Neuts (auto) 4.6 Absolute Lymphs (auto) 1.37 Nucleated RBC % 0 PT 13.9 INR 1.1 APTT 24.2 Sodium 142 Potassium 4.2 Chloride 108 H Carbon Dioxide 28.0 Anion Gap 6 BUN 15 Creatinine 0.86 Estim Creat Clear Calc 68.38 Est GFR (MDRD) Af Amer 110 Est GFR (MDRD) Non-Af 91 BUN/Creatinine Ratio 17.5 Glucose 133 H Calcium 9.0 Troponin I High Sens 7 Radiography Diagnostic Testing: Radiology Impression Brain CT 06/25/21 14:28 IMPRESSION: Petechial hemorrhage and edema within the right temporal parietal lobes as described. Scalp laceration overlying the posterior occipital parietal bones. The differential diagnosis to be considered should include the a fall with laceration and a petechial contusion versus hemorrhagic infarct causing a fall with overlying laceration. N.B. : The above Results were Read Back by Dwaine Singh MD to Winn DO, and understanding confirmed on 06/25/2021 14:46:30 (ET). Electronically Signed: Dwaine Singh MD at 14:47 EDT , Service support , ADDENDUM: 06/25/21 1454 IMPRESSION: Petechial hemorrhage and edema within the right temporal parietal lobes as described. Scalp laceration overlying the posterior occipital parietal bones. The differential diagnosis to be considered should include the a fall with laceration and a petechial contusion versus hemorrhagic infarct causing a fall with overlying laceration. N.B. : The above Results were Read Back by Dwaine Singh MD to Winn DO, and understanding confirmed on 06/25/2021 14:46:30 (ET). Electronically Signed: Dwaine Singh MD at 14:47 EDT , Service support , Chest X-Ray 06/25/21 14:28 IMPRESSION: Mild degree of increased linear markings at the lung bases suggestive of scarring and/or atelectasis. Electronically Signed: Dwaine Singh MD at 15:51 EDT , Service support , EKG Initial EKG: Attestation: I personally reviewed and interpreted this EKG as follows: Interpretation: Sinus Rhythm (With first-degree AV block with a rate of 64) and Non-Specific ST Changes Prior EKG tracings: available for review Prior: Unchanged (12/17/2019) Stroke Documentation Questions Stroke Team Activated: Yes Reviewed Inclusion/Exclusion criteria: Yes IV Alteplase (t-PA) Administered: No No contraindications for IV Alteplase (t-PA) administration.: No Procedures Lacerations Scalp: Depth: Sub Q Shape: Linear Prep: Sterile Conditions and Chlorhexadine Laceration repair: Lidocaine with epi Number of Sutures/Jonathan: 6 (Carter) Suture Information: - Critical Care Time Critical Care Time: Yes Critical care time (excluding procedures): 30-74 minutes (35), Including time spent:, Discussing w/Patient &/or Family/Contact Lens Manufacturer, Discussing w/Consultants, Arranging Admission or Transfer and Performing Direct Patient Care at Bedside Discharge Plan Triage Chief Complaint: Neuro S/Sx ED Provider: [place] [facility] Dx/Rx/DC Orders Clinical Impression: Intracranial hemorrhage following injury, Laceration of occipital scalp Prescriptions: No Action cyanocobalamin (vitamin B-12) 1,000 mcg/mL solution 1,000 mcg IM Q4W RF: 0 montelukast 10 mg tablet 10 mg PO DAILY RF: 0 levothyroxine 112 mcg tablet 112 mcg PO DAILY RF: 0 clopidogrel 75 mg tablet 75 mg PO DAILY Qty: 90 RF: 3 aspirin 81 MG tablet 81 mg PO DAILY@0800 Qty: 90 RF: 0 fluticasone furoate-vilanterol 200-25 mcg/dose blister with device 1 ea INHALATION DAILY RF: 0 metoprolol tartrate 25 mg tablet 12.5 mg PO DAILY Qty: 45 RF: 3 atorvastatin 80 mg tablet 80 mg PO QHS Qty: 90 RF: 3 Primary Care Provider: Cash Laguna Referrals: Cash Laguna MD [Primary Care Provider] - Disposition Disposition: Acute Care Hospital Discharge Location: [facility] Discharge Date/Time: 06/25/21 16:29
[2021-06-25 15:09] LABS: Anion Gap 6 (5-15); BUN 15 mg/dL (7-18); BUN/Creat Ratio 17.5 RATIO (10-20); Chloride 108 mmol/L (98-107); Creatinine, Serum 0.86 mg/dL (0.70-1.30); EST Glomerular Filtration Rate 91 mL/min (>60); Est Glom Filt Rate - Afr Amer 110 mL/min (>60); Estimated Creatinine Clearance 68.38 ml/min; Glucose 133 mg/dL (74-106); Potassium 4.2 mmol/L (3.5-5.1); Sodium Level 142 mmol/L (136-145); Troponin-I HS 7 pg/mL (3.0-78.0)
[2021-06-25] MEDS: Diphth,Pertuss(Acell),Tet Vac 0.5 ML Vial IM (15:12)
[2021-06-25] MEDS: Lidocaine 1% /Epi 1:100 (20ml) 20 ML Vial INFILT (15:13)
--- NOTE | 2021-06-25 15:45 | NURSING ---
CALLED [facility], ETA IS 30 TO 45 MIN
--- NOTE | 2021-06-25 16:42 | NURSING ---
TRANSFER SHEET FAXED TO [facility] [phone]
== END 2021-06-25 16:29 | disposition short-term general hospital (02) ==
PROVIDERS: Emergency Provider Emergency Medicine; PCP Internal Medicine
DX: S01.01XA Laceration without foreign body of scalp, initial encounter (principal); S06.340A Traumatic hemorrhage of right cerebrum without loss of consciousness, initial encounter; W19.XXXA Unspecified fall, initial encounter; Y93.9 Activity, unspecified; Y92.9 Unspecified place or not applicable; I44.0 Atrioventricular block, first degree; E03.9 Hypothyroidism, unspecified; E66.9 Obesity, unspecified; I25.2 Old myocardial infarction; G47.33 Obstructive sleep apnea (adult) (pediatric); J45.909 Unspecified asthma, uncomplicated; I25.10 Atherosclerotic heart disease of native coronary artery without angina pectoris; Z68.30 Body mass index [BMI] 30.0-30.9, adult; Z87.19 Personal history of other diseases of the digestive system; Z79.899 Other long term (current) drug therapy
CPT/HCPCS: 12002; 70450; 71045; 80048; 84484; 85025; 85610; 85730; 90715; 93005; 99285; A4216

== ENCOUNTER → 2022-06-18 | Outpatient (CLI) | payer MEDICARE, OTHER, SELFPAY ==
[2022-06-18 10:03] LABS: Mean Corp Hgb Conc 32.6 g/dL (32-36); Mean Corpuscular Hgb 31.9 pg (27.0-32.0); Mean Corpuscular Volume 97.9 fL (80-94); Mean Platelet Vol. 10.2 fl (6.2-12.0); Platelet Count 182 K/mm3 (150-450); RBC Distribution Width CV 13.2 % (11.6-14.6); RBC Distribution Width SD 48.1 fl (35.1-43.9); White Blood Count 5.5 K/mm3 (4.4-11.0)
== END | disposition home or self-care (01) ==
PROVIDERS: PCP Internal Medicine; Referring Provider Internal Medicine Pulmonary Disease; Visit Provider Internal Medicine Pulmonary Disease
DX: J45.40 Moderate persistent asthma, uncomplicated (principal); R09.02 Hypoxemia
CPT/HCPCS: 36415; 85027

== ENCOUNTER → 2022-11-23 | Outpatient (CLI) | payer MEDICARE, OTHER, SELFPAY ==
[2022-11-23 10:30] LABS: AST(SGOT) 27 U/L (15-37); Alanine Aminotransfer ALT/SGPT 21 U/L (16-61); Albumin, Serum 3.6 g/dL (3.2-5.0); Alkaline Phosphatase 149 U/L (45-117); Bilirubin, Direct 0.14 mg/dL (0.00-0.30); Cholesterol 132 mg/dL (200); Globulin 3.5 g/dL (2.2-4.2); High Density Lipoprotein 59 mg/dL; Protein, Total 7.1 g/dL (6.4-8.2); Triglycerides 91 mg/dL; Very Low Density Lipoprotein 18 mg/dL (5-40)
== END | disposition home or self-care (01) ==
PROVIDERS: PCP Internal Medicine; Referring Provider Nurse Practitioner Family; Visit Provider Nurse Practitioner Family
DX: E78.00 Pure hypercholesterolemia, unspecified (principal); I25.10 Atherosclerotic heart disease of native coronary artery without angina pectoris
CPT/HCPCS: 36415; 80061; 80076

== ENCOUNTER 2023-04-14 23:09 | Observation (INO) | payer MEDICARE, OTHER, SELFPAY ==
[2023-04-14 23:10] VITALS: BP 153/117; PULSE 148; RESP 30; TEMP 36.8; O2SAT 97; BMI 32.1
--- NOTE | 2023-04-14 23:25 | RAD_ITS ---
EXAM: XR CHEST, 1 VIEW CLINICAL INDICATION: chest pain TECHNIQUE: Frontal view of the chest. COMPARISON: June 25, 2021. November 21, 2019. FINDINGS: LUNGS AND PLEURAL SPACES: Similar appearance of pulmonary hypoinflation and elevation of the left hemidiaphragm with moderate gastric air bubble. Similar appearance of mild curvilinear band of atelectasis or scarring at the left supradiaphragmatic lung bases. Similar appearance of minimal right basilar atelectasis. No pneumothorax. No effusion. HEART: The heart margins are not well seen but similar to prior exam. MEDIASTINUM: Central airways and mediastinal contour are unremarkable. BONES/JOINTS: Unremarkable. SOFT TISSUES: Unremarkable. RAD/Chest 1 View (Portable) IMPRESSION: Stable chest. Low lung volumes including elevated left hemidiaphragm and left basilar atelectasis or scarring. Electronically Signed: Concepcion Morales MD at 0:11 EDT ,
--- NOTE | 2023-04-14 23:26 | EDS_ITS ---
HPI History of Present Illness Chief Complaint: Chest Pain Informant: patient Narrative Narrative: Less than an hour ago, keeping from outside to get a shower he started feeling poorly. When he was getting a shower he felt lightheaded like he was going to pass out so he sat down, he was clammy and diaphoretic, having chest pressure mild. No radiation. No dyspnea. Did not lose consciousness. Did not feel his heart racing but his checked his heart rate with the device on his finger and said it was fast. Never had this happen before. Has a history of a remote stent placed in his heart but no history of A-fib that he knows of. No anticoagulants, takes baby aspirin daily. No recent illness or injury. 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) Right bundle branch block (RBBB) SAH (subarachnoid hemorrhage) (06/25/21) Syncope Unstable angina pectoris due to coronary arteriosclerosis Vitamin B 12 deficiency Home Medications aspirin 81 mg tablet,delayed release 81 mg PO DAILY@0800 #90 tabs 11/23/19 [Rx Last Taken 12/21/20] cyanocobalamin (vitamin B-12) 1,000 mcg/mL injection solution 1,000 mcg IM Q4W 04/13/20 [History Last Taken Unknown] fluticasone furoate 200 mcg-vilanterol 25 mcg/dose inhalation powder 1 ea in halation DAILY 04/13/20 [History Last Taken 12/21/20] montelukast 10 mg tablet 10 mg PO DAILY 10/13/20 [History Last Taken Unknown] levothyroxine 112 mcg tablet 112 mcg PO DAILY 04/24/21 [History Last Taken Unknown] acetaminophen 325 mg capsule 325 mg PO ONCE PRN 07/02/21 [History Last Taken Unknown] handicap placard #1 ea 10/25/21 [Rx Last Taken Unknown] atorvastatin 10 mg tablet 10 mg PO .QODAY Please correct quantity for Q other day med #45 tabs 12/09/22 [Rx Last Taken Unknown] metoprolol tartrate 25 mg tablet See Rx Instructions .Route .COMPLEX #90 tabs 03/03/23 [Rx Last Taken Unknown] Allergy/AdvReac Type Severity Reaction Status Date / Time Penicillins Allergy Rash Verified 04/14/23 23:17 Family History (Reviewed 10/14/22 @ 09:44 by Rufus Webber [employer], [employer]) Mother Heart disease PPM Hypertension Brother Heart disease Has ICD Father Heart disease PPM Colon cancer Surgical History History of cataract surgery History of coronary artery stent placement (11/21/19) History of ERCP History of left heart catheterization (12/21/20) History of loop recorder (01/13/19) History of tonsillectomy Hx of cholecystectomy Social History Smoking Status: Never smoker ROS ROS ED Constitutional Constitutional ED: Reports fatigue, sweats and weakness; Denies chills or fever(s) Eyes Eyes: Denies change in vision or diplopia ENT ENT ED: Denies rhinorrhea or sore throat Cardiovascular Cardiovascular: Reports chest pain; Denies palpitations Respiratory/Chest Respiratory/Chest: Denies cough or dyspnea Gastrointestinal Gastrointestinal: Denies abdominal pain, diarrhea, nausea or vomiting Genitourinary Genitourinary ED: Denies dysuria or hematuria Musculoskeletal Musculoskeletal: Denies back pain or neck pain Integumentary Denies abscess or rash Neurologic Neurologic: Denies headache(s), paresthesias or weakness Psychiatric Psychiatric: Denies anxiety or suicidal thoughts EXAM Physical Exam Const Vital Signs: 04/14/23 23:10 04/14/23 23:15 04/14/23 23:49 Temperature 98.2 F Temperature Source Oral Pulse Rate 148 H Respiratory Rate 30 H Respiratory Effort Normal Blood Pressure 153/117 H Blood Pressure Mean 129 Pulse Ox 97 Oxygen Delivery Method Room Air Room Air 04/15/23 00:43 04/15/23 01:23 04/15/23 02:17 Temperature Temperature Source Pulse Rate 69 68 62 Respiratory Rate 19 H 21 H 18 Respiratory Effort Blood Pressure 93/59 L 91/67 102/68 Blood Pressure Mean 70 75 79 Pulse Ox 92 92 92 Oxygen Delivery Method Room Air Room Air Room Air Positive well nourished and well developed General Appearance ED: well developed and NAD HEENT Reports moist mucous membranes normocephalic and atraumatic Eyes PERRL and EOMs intact bilaterally Neck full ROM and supple Resp normal respiratory effort and clear to auscultation bilaterally Cardio regular rate, regular rhythm and no murmurs Rate: tachycardic GI non-tender and non-distended Auscultation: normoactive bowel sounds Palpation: soft Back/Spine no CVA tenderness General Back: other FROM Extremity normal to inspection General Extremety ED: Negative for edema, pulses abnormal or tenderness General Extremity: Negative for edema or pulses abnormal Neuro oriented x3, CN's II-XII intact bilaterally and no sensory deficits noted Sensorium / Orientation: awake and alert Motor Exam: strength 5/5 throughout Psych mental status grossly normal Skin no rashes or lesions noted and no wounds Heart Score History: Highly Suspicious ECG: Nonspecific Repolarization (initial EKG) Age: >/= 65 years Risk Factors: >/= 3 Risk Factors or History of CAD Troponin: </= Normal Limit Score: 7 MDM MDM MDM Narrative Medical decision making narrative: Discussed giving this patient adenosine since after evaluation of his EKG and a prior, he has a pre-existing aberrancy and this appears to likely be a supraventricular tachycardia, given the risks of simply pausing the dysrhythmia, versus breaking it. He was amenable. Adenosine broke the rhythm to sinus rhythm repeat EKG shows no acute ischemia, and his chest discomfort resolved. While monitoring him awaiting labs, he had no further dysrhythmias, but his blood pressure went down to the 80s. The fluids we had going was changed to bolus, this brought his blood pressure up to the level of about 96/67. He did feel little lightheaded if he moved around. We watched him and his blood pressure gradually came up, 102/68 on recheck. Heart rate steady in the 60s. His initial troponin was within normal limits at 33 and the 2-hour level went up to 77. This is nonspecific. His heart score is 7 which is more concerning, especially given his symptoms, which may have been caused by SVT or may have represented angina that caused the dysrrhythmia. Will admit for further evaluation. History & Record Review Discussion w/independent historian: Patient and Significant other Additional record(s) reviewed:: Prior outpatient record (cardiology clinic notes - prior RCA stenting, known LAD disease without stenting, last negative cardiac stress 2020) and Prior labs Lab Data Attestation: I reviewed the patient's lab results. Labs: Laboratory Results - last 24 hr 04/14/23 04/15/23 23:37 01:45 WBC 6.8 RBC 4.76 Hgb 15.4 Hct 47.3 MCV 99.4 H MCH 32.4 H MCHC 32.6 RDW Std Deviation 45.9 H RDW Coeff of Dejuan 12.5 Plt Count 149 L MPV 10.2 Immature Gran % (Auto) 0.400 Neut % (Auto) 64.0 Lymph % (Auto) 20.6 [place] % (Auto) 12.4 H Eos % (Auto) 1.6 Baso % (Auto) 1.0 Absolute Neuts (auto) 4.3 Absolute Lymphs (auto) 1.39 Nucleated RBC % 0 Sodium 142 Potassium 3.9 Chloride 110 H Carbon Dioxide 27.0 Anion Gap 5 BUN 19 H Creatinine 0.96 Estim Creat Clear Calc 59.14 Est GFR (MDRD) Af Amer 96 Est GFR (MDRD) Non-Af 80 BUN/Creatinine Ratio 19.9 Glucose 122 H Calcium 8.4 L Troponin I High Sens 33 77 Radiography Diagnostic Testing: Clinical Impression(s) from Imaging Studies Chest X-Ray 04/14/23 23:25 IMPRESSION: Stable chest. Low lung volumes including elevated left hemidiaphragm and left basilar atelectasis or scarring. Electronically Signed: Concepcion Morales MD at 0:11 EDT , Rhythm Strip Rhythm Strip: Tachycardia, wide complex Rate: 143 Ectopy: None EKG Initial EKG: Attestation: I personally reviewed and interpreted this EKG as follows: Comments: Wide-complex tachycardia with right bundle branch block pattern, the QRS complex duration and morphology is similar to old EKG 06/25/2021 Prior EKG tracings: available for review Prior: Changed (Rhythm morphology see above) post-cardioversion: Attestation: I personally reviewed and interpreted this EKG as follows: Interpretation: Sinus Rhythm and No Acute Injury Pattern Comments: Same QRS morphology, sinus rhythm at a rate of 79 without acute injury pattern or pathologic T wave inversions Management Discussion w/another healthcare provider: Hospitalist Procedures Other Procedures Procedure(s): Pharmacologic cardioversion: Adenosine 6 mg given IV push with a flush, patient tolerated well, he felt a little lightheaded, his rhythm broke to sinus rhythm, repeat EKG obtained, patient symptoms resolved tolerated well no complications. Critical Care Time Critical Care Time: Yes Critical care time (excluding procedures): 30-74 minutes (37 min, not including procedure time), Including time spent:, Discussing w/Patient &/or Family/Carding Doubler, Discussing w/Consultants, Arranging Admission or Transfer and Performing Direct Patient Care at Bedside Discharge Plan Dx/Rx/DC Orders Clinical Impression: SVT (supraventricular tachycardia), History of CAD (coronary artery disease), Chest pain Disposition Disposition: Acute Care [facility]
[2023-04-14] MEDS: Adenosine 6 MG/2 ML Syringe IV (23:30)
--- NOTE | 2023-04-14 23:30 | EKG12_ITS ---
Test Reason : CP ADMISSION Blood Pressure : / mmHG Vent. Rate : 059 BPM Atrial Rate : 059 BPM P-R Int : 262 ms QRS Dur : 144 ms QT Int : 470 ms P-R-T Axes : 036 086 036 degrees QTc Int : 465 ms Sinus bradycardia with 1st degree A-V block Non-specific intra-ventricular conduction block Abnormal ECG When compared with ECG of 14-APR-2023 23:39, MANUAL COMPARISON REQUIRED, DATA IS UNCONFIRMED Confirmed by SUNDAR SANTORO, JANIE ([id number]), purchase request editor ALLISON BUTLER ([id number]) on 04/22/2023 7:21:11 AM Referred By: Brian Sheppard Confirmed By:JANIE KWOK MD
[2023-04-14 23:42] LABS: Absolute Lymphocyte Count 1.39 X10^3/uL (0.83-4.51); Absolute Neutrophil Count 4.3 X10^3/uL (2.0-7.7); Basophil# 0.07 X10^3/uL; Eosinophil# 0.11 X10^3/uL; Eosinophils% 1.6 % (0-5); Hematocrit 47.3 % (40-54); Hemoglobin 15.4 g/dL (13.0-16.5); Lymphocyte # 1.39 X10^3/ul (0.83-4.51); Lymphocyte % 20.6 % (19-41); Mean Corp Hgb Conc 32.6 g/dL (32-36); Mean Corpuscular Hgb 32.4 pg (27.0-32.0); Mean Corpuscular Volume 99.4 fL (80-94); Mean Platelet Vol. 10.2 fl (6.2-12.0); Monocyte# 0.84 X10^3/uL; Monocyte% 12.4 % (0-10); NRBC Flagged by Analyzer 0 % (0-5); Neutrophil # 4.32 X10^3/uL (2.7-7.7); Platelet Count 149 K/mm3 (150-450); RBC Distribution Width CV 12.5 % (11.6-14.6); RBC Distribution Width SD 45.9 fl (35.1-43.9); Red Blood Count 4.76 M/mm3 (4.6-6.2); White Blood Count 6.8 K/mm3 (4.4-11.0)
[2023-04-14] MEDS: 0.9% Normal Saline 1,000 ML 150 ML IV (23:51)
[2023-04-15] VITALS (8 sets, daily range): BP systolic 91–123; BP diastolic 59–68; PULSE 57–69; RESP 17–21; TEMP 36.3–36.4; O2SAT 92–98; BMI 31.8
[2023-04-15 00:08] LABS: Anion Gap 5 (5-15); BUN 19 mg/dL (7-18); BUN/Creat Ratio 19.9 RATIO (10-20); Calcium,Total 8.4 mg/dL (8.5-10.1); Chloride 110 mmol/L (98-107); Creatinine, Serum 0.96 mg/dL (0.70-1.30); EST Glomerular Filtration Rate 80 mL/min (>60); Est Glom Filt Rate - Afr Amer 96 mL/min (>60); Estimated Creatinine Clearance 59.14 ml/min; Glucose 122 mg/dL (74-106); Potassium 3.9 mmol/L (3.5-5.1); Sodium Level 142 mmol/L (136-145); Troponin-I HS (w/2H Reflex) 33 pg/mL (3.0-78.0)
[2023-04-15 01:40] LABS: Reflex Troponin-HS? (from REC) Y
[2023-04-15 02:08] LABS: Troponin-I HS 77 pg/mL (3.0-78.0)
--- NOTE | 2023-04-15 02:39 | HP.PCM.HOS_ITS ---
HPI - General General Date of Admission: 04/15/23 Date of Service: 04/15/23 Chief Complaint: Racing heart HPI Narrative LURDES HERNANDES, is a 82 M with a significant history of CAD s/p stent who presents to the emergency department with racing heartbeats that started about an hour and a half prior to presentation. Associated with his symptoms is mild chest pressure. The patient complains of shortness of breath. At the emergency department patient was found to be in SVT with a rate of around 147. Patient received adenosine of 6 mg that took him into sinus rhythm. Patient chest pain lasted for about 5 minutes. 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) Right bundle branch block (RBBB) SAH (subarachnoid hemorrhage) (06/25/21) Syncope Unstable angina pectoris due to coronary arteriosclerosis Vitamin B 12 deficiency Home Medications aspirin 81 mg tablet,delayed release 81 mg PO DAILY@0800 #90 tabs 11/23/19 [Rx Last Taken 12/21/20] cyanocobalamin (vitamin B-12) 1,000 mcg/mL injection solution 1,000 mcg IM .Q3w 04/13/20 [History Last Taken Unknown] fluticasone furoate 200 mcg-vilanterol 25 mcg/dose inhalation powder 1 ea inhalation DAILY 04/13/20 [History Last Taken 12/21/20] montelukast 10 mg tablet 10 mg PO DAILY 10/13/20 [History Last Taken Unknown] levothyroxine 112 mcg tablet 112 mcg PO DAILY 04/24/21 [History Last Taken Un known] acetaminophen 325 mg capsule 325 mg PO ONCE PRN pain 07/02/21 [History Last Taken Unknown] handicap placard #1 ea 10/25/21 [Rx Last Taken Unknown] atorvastatin 10 mg tablet 10 mg PO .QODAY Please correct quantity for Q other day med #45 tabs 12/09/22 [Rx Last Taken Unknown] metoprolol tartrate 25 mg tablet See Rx Instructions .Route .COMPLEX #90 tabs 03/03/23 [Rx Last Taken Unknown] Allergy/AdvReac Type Severity Reaction Status Date / Time Penicillins Allergy Rash Verified 04/14/23 23:17 Family History Mother Heart disease PPM Hypertension Brother Heart disease Has ICD Father Heart disease PPM Colon cancer Surgical History History of cataract surgery History of coronary artery stent placement (11/21/19) History of ERCP History of left heart catheterization (12/21/20) History of loop recorder (01/13/19) History of tonsillectomy Hx of cholecystectomy Social History Smoking Status: Never smoker ROS ROS Narrative Pertinent positives and pertinent negatives as noted in HPI. All other systems were reviewed and are negative Vital Signs Vital Signs Vital Signs: 04/14/23 23:10 04/14/23 23:15 04/14/23 23:49 Temperature 98.2 F Temperature Source Oral Pulse Rate 148 H Respiratory Rate 30 H Respiratory Effort Normal Blood Pressure 153/117 H Blood Pressure Mean 129 Pulse Ox 97 Oxygen Delivery Method Room Air Room Air 04/15/23 00:43 04/15/23 01:23 04/15/23 02:17 Temperature Temperature Source Pulse Rate 69 68 62 Respiratory Rate 19 H 21 H 18 Respiratory Effort Blood Pressure 93/59 L 91/67 102/68 Blood Pressure Mean 70 75 79 Pulse Ox 92 92 92 Oxygen Delivery Method Room Air Room Air Room Air Weight Weight: 101.7 kg Body Mass Index (BMI) 32.1 Physical Exam Narrative Physical exam: General: Well-nourished, well-developed. Head: Normocephalic, atraumatic, no tenderness Eyes: Vision is grossly intact. EOMI ENT, no trauma, moist mucous membranes, no rhinorrhea Neck: Nontender, No thyromegaly. CVS: Regular rate and rhythm. S1-S2 present. No murmur, gallop or rub. Respiratory : clear to auscultation bilaterally, chest wall nontender Abdomen: Soft, nontender, nondistended, normal bowel sounds, no masses : Deferred Back: Nontender, no CVA tenderness, no midline spinal tenderness, deformities, step-offs Extremities: Nontender full range of motion, no trauma Skin: Normal color, no trauma, abrasions Neuro: Alert, oriented, cranial nerves II through XII grossly intact. Psychiatry: Normal mood. Normal affect. Not depressed. Not anxious. Results Lab / Micro Data 04/14/23 23:37 04/14/23 23:37 Labs: Laboratory Results - last 24 hr 04/14/23 23:37: WBC 6.8, RBC 4.76, Hgb 15.4, Hct 47.3, MCV 99.4 H, MCH 32.4 H, MCHC 32.6, RDW Std Deviation 45.9 H, RDW Coeff of Dejuan 12.5, Plt Count 149 L, MPV 10.2, Immature Gran % (Auto) 0.400, Neut % (Auto) 64.0, Lymph % (Auto) 20.6, [place] % (Auto) 12.4 H, Eos % (Auto) 1.6, Baso % (Auto) 1.0, Absolute Neuts (auto) 4.3, Absolute Lymphs (auto) 1.39, Nucleated RBC % 0, Sodium 142, Potassium 3.9, Chloride 110 H, Carbon Dioxide 27.0, Anion Gap 5, BUN 19 H, Creatinine 0.96, Estim Creat Clear Calc 59.14, Est GFR (MDRD) Af Amer 96, Est GFR (MDRD) Non-Af 80, BUN/Creatinine Ratio 19.9, Glucose 122 H, Calcium 8.4 L, Troponin I High Sens 33 04/15/23 01:45: Troponin I High Sens 77 Rhythm Strip Rhythm Strip: Tachycardia at approximately 150 Rate: 150 Ectopy: None Radiology Impression Chest X-Ray 04/14/23 23:25 IMPRESSION: Stable chest. Low lung volumes including elevated left hemidiaphragm and left basilar atelectasis or scarring. Electronically Signed: Concepcion Morales MD at 0:11 EDT , Assessment & Plan Assessment/Plan (1) SVT (supraventricular tachycardia): (2) Chest pain: QUALIFIERS: Chest pain type: precordial pain Qualified Code(s): R07.2 - Precordial pain (3) Hypotension: QUALIFIERS: Hypotension type: unspecified hypotension type Qualified Code(s): I95.9 - Hypotension, unspecified PLAN: Plan chest pain Place on a monitored bed at progressive care unit Impression chest x-ray by radiology:Low lung volumes including elevated left hem idiaphragm and left basilar atelectasis or scarring. Actual CXR image was independently visualized. Agrees with radiology interpretation. Actual EKG tracing was independently visualized. EKG tracing showed SVT and later sinus rhythm. Discussed emergency department doctor who gave 162 mg of aspirin. Daily aspirin continued. ASA 81 mg p.o. daily ordered We will check lipid panel. Initial high sensitivity troponin was 33. Repeat was 77. Serial cardiac enzymes ordered Stat EKG as needed for chest pain Stress test in the AM if the cardiac enzymes are negative SVT Status post conversion sinus rhythm with 6 mg of adenosine. Potassium presentation was 3.9. 10 mEq of potassium chloride ordered. Check magnesium. Check TSH. Check magnesium. Watch on telemetry. Hypothyroidism TSH as above. Hypotension Resolved with IV fluid in the ED. Trend blood pressures. DVT prophylaxis: SCDs ordered. Time spent in the patient's overall evaluation,decision-making process, review of diagnostic data, adjustment of management, discussion with other providers, nursing nursing and ancillary staff involved in patient's care documentation, 44 minutes. Charges/Coding Visit Charges Inpatient E&M: 90059 Init Hosp L2
[2023-04-15] MEDS: Aspirin 81 MG TAB.CHEW 162 MG PO (02:57)
--- NOTE | 2023-04-15 05:55 | ECHOCS_ITS ---
Reason For Study: CHEST PAIN Procedure This was a 2D Doppler, Color Flow transthoracic echocardiogram. The study was technically difficult. Contrast injection was performed. Exam performed in department. Left Ventricle Normal LV size. Mild concentric left ventricular hypertrophy. The left ventricular ejection fraction is 65 %. Normal diastology for age. Right Ventricle Normal right ventricle. Atria The left atrium is mildly enlarged. Normal right atrium. Mitral Valve The mitral valve is structurally normal. No prolapse or stenosis seen. Tricuspid Valve Normal tricuspid valve. Aortic Valve Normal aortic valve. Pulmonic Valve Normal pulmonic valve. Great Vessels Normal sized aortic root. Pericardium/Pleural No pericardial effusion. Medication Diluted definity 2.0ml given slow IV push to enhance endocardial definition. MMode/2D Measurements & Calculations LVIDd: 5.1 cm IVSd: 1.2 cm Ao root diam: 3.4 cm LVIDs: 3.4 cm LVPWd: 1.2 cm RVDd: 3.7 cm FS: 32.4 % LAV(MOD-bp): 65.8 ml LA A4 area: 20.7 cm2 LA dimension(2D): 4.2 cm LAV(MOD-bp) Indexed: 30.2 ml/m2 LAV(MOD-sp2): 68.0 ml LAV(MOD-sp4): 63.2 ml RA A4 area: 11.4 cm2 Time Measurements MV dec time: 0.24 sec Doppler Measurements & Calculations MV E max niels: 63.5 cm/sec Lat Peak E' Niels: 7.4 cm/sec Med Peak E' Niels: 5.7 cm/sec MV A max niels: 73.3 cm/sec E/E' lat: 8.6 E/E' med: 11.1 MV E/A: 0.87 MV V2 max: 91.2 cm/sec MV P1/2t max niels: 82.9 cm/sec Ao V2 max: 126.8 cm/sec MV max P.3 mmHg MV P1/2t: 84.3 msec Ao max P.5 mmHg MV V2 mean: 51.3 cm/sec MV dec slope: 288.0 cm/sec2 Ao V2 mean: 83.6 cm/sec MV mean P.2 mmHg Ao mean P.3 mmHg MV V2 VTI: 27.3 cm MVA(P1/2t): 2.6 cm2 Ao V2 VTI: 30.0 cm AV (velocity ratio): 0.71 LV V1 max: 102.5 cm/sec PA V2 max: 84.4 cm/sec LV V1 max P.2 mmHg PA V2 mean: 68.0 cm/sec LV V1 mean P.1 mmHg LV V1 mean: 67.9 cm/sec LV V1 VTI: 21.1 cm ECHO/Echo Complete W/ Contrast Interpretation Summary The study was technically difficult. Mild concentric left ventricular hypertrophy. The left ventricular ejection fraction is 65 %. The left atrium is mildly enlarged. Ordering Physician: Brian Sheppard Referring Physician: Cash Laguna Performed By: Heather Dunlap RDCS, RVT
[2023-04-15 06:36] LABS: Absolute Lymphocyte Count 1.28 X10^3/uL (0.83-4.51); Absolute Neutrophil Count 3.4 X10^3/uL (2.0-7.7); Basophil# 0.04 X10^3/uL; Basophil% 0.7 % (0-1); Eosinophil# 0.09 X10^3/uL; Eosinophils% 1.6 % (0-5); Hematocrit 45.6 % (40-54); Hemoglobin 14.5 g/dL (13.0-16.5); Lymphocyte # 1.28 X10^3/ul (0.83-4.51); Lymphocyte % 22.8 % (19-41); Mean Corp Hgb Conc 31.8 g/dL (32-36); Mean Corpuscular Hgb 32.2 pg (27.0-32.0); Mean Corpuscular Volume 101.3 fL (80-94); Mean Platelet Vol. 10.3 fl (6.2-12.0); Monocyte# 0.78 X10^3/uL; Monocyte% 13.9 % (0-10); NRBC Flagged by Analyzer 0 % (0-5); Neutrophil # 3.41 X10^3/uL (2.7-7.7); Neutrophil % 60.6 % (47-70); Platelet Count 144 K/mm3 (150-450); RBC Distribution Width CV 12.7 % (11.6-14.6); RBC Distribution Width SD 47.8 fl (35.1-43.9); White Blood Count 5.6 K/mm3 (4.4-11.0)
[2023-04-15 07:22] LABS: Anion Gap 2 (5-15); BUN 19 mg/dL (7-18); BUN/Creat Ratio 23.5 RATIO (10-20); Calcium,Total 8.3 mg/dL (8.5-10.1); Chloride 109 mmol/L (98-107); Cholesterol 87 mg/dL (200); Creatinine, Serum 0.81 mg/dL (0.70-1.30); EST Glomerular Filtration Rate 97 mL/min (>60); Est Glom Filt Rate - Afr Amer 117 mL/min (>60); Glucose 101 mg/dL (74-106); High Density Lipoprotein 44 mg/dL; Potassium 4.1 mmol/L (3.5-5.1); Sodium Level 142 mmol/L (136-145); Triglycerides 68 mg/dL; Troponin-I HS 84 pg/mL (3.0-78.0); Very Low Density Lipoprotein 14 mg/dL (5-40)
--- NOTE | 2023-04-15 08:11 | PCM.PN.HOSP ---
Reason for Visit Reason for Visit: Diagnoses Supraventricular tachycardia (04/15/23) Hypotension, unspecified (04/15/23) Precordial pain (04/15/23) Subjective Subjective Feels well currently. Objective Data Objective Data Vital Signs: Vital Signs Temp Pulse Resp BP Pulse Ox O2 Del Method O2 Flow Rate 36.3 C L 60 18 104/64 96 Nasal Cannula 3 04/15/23 04:52 04/15/23 06:49 04/15/23 04:52 04/15/23 06:49 04/15/23 04:52 04/15/23 05:21 04/15/23 05:21 Oxygen Flow Rate (L/min) 3 Oxygen Delivery Method Nasal Cannula Weight: 100.5 kg Body Mass Index (BMI) 31.8 Intake & Output: Intake and Output for Last 24 Hours 04/13/23 04/14/23 04/15/23 23:59 23:59 23:59 Intake Total 1000 / 1000 Balance 1000 / 1000 Lab / Micro Data 04/15/23 06:05 04/15/23 06:05 Labs: Laboratory Results - last 24 hr 04/14/23 23:37: WBC 6.8, RBC 4.76, Hgb 15.4, Hct 47.3, MCV 99.4 H, MCH 32.4 H, MCHC 32.6, RDW Std Deviation 45.9 H, RDW Coeff of Dejuan 12.5, Plt Count 149 L, MPV 10.2, Immature Gran % (Auto) 0.400, Neut % (Auto) 64.0, Lymph % (Auto) 20.6, [place] % (Auto) 12.4 H, Eos % (Auto) 1.6, Baso % (Auto) 1.0, Absolute Neuts (auto) 4.3, Absolute Lymphs (auto) 1.39, Nucleated RBC % 0, Sodium 142, Potassium 3.9, Chloride 110 H, Carbon Dioxide 27.0, Anion Gap 5, BUN 19 H, Creatinine 0.96, Estim Creat Clear Calc 59.14, Est GFR (MDRD) Af Amer 96, Est GFR (MDRD) Non-Af 80, BUN/Creatinine Ratio 19.9, Glucose 122 H, Calcium 8.4 L, Troponin I High Sens 33 04/15/23 01:45: Troponin I High Sens 77 04/15/23 06:05: WBC 5.6, RBC 4.50 L, Hgb 14.5, Hct 45.6, MCV 101.3 H, MCH 32.2 H, MCHC 31.8 L, RDW Std Deviation 47.8 H, RDW Coeff of Dejuan 12.7, Plt Count 144 L, MPV 10.3, Immature Gran % (Auto) 0.400, Neut % (Auto) 60.6, Lymph % (Auto) 22.8, [place] % (Auto) 13.9 H, Eos % (Auto) 1.6, Baso % (Auto) 0.7, Absolute Neuts (auto) 3.4, Absolute Lymphs (auto) 1.28, Nucleated RBC % 0, Sodium 142, Potassium 4.1, Chloride 109 H, Carbon Dioxide 31.0, Anion Gap 2 L, BUN 19 H, Creatinine 0.81, Estim Creat Clear Calc 70.10, Est GFR (MDRD) Af Amer 117, Est GFR (MDRD) Non-Af 97, BUN/Creatinine Ratio 23.5 H, Glucose 101, Calcium 8.3 L, Troponin I High Sens 84 H, Triglycerides 68, Cholesterol 87, LDL Cholesterol 29, VLDL Cholesterol 14, HDL Cholesterol 44, TSH 2.00 Radiography Diagnostic Testing: Radiology Impression Chest X-Ray 04/14/23 23:25 IMPRESSION: Stable chest. Low lung volumes including elevated left hemidiaphragm and left basilar atelectasis or scarring. Electronically Signed: Concepcion Morales MD at 0:11 EDT , Rhythm Strip Rhythm Strip: Tachycardia, wide complex Rate: 143 Ectopy: None Physical Exam Const alert and no apparent distress Resp normal respiratory effort, no retractions, no use of accessory muscles and clear to auscultation bilaterally Cardio regular rate, regular rhythm, S1 normal heart sound and S2 normal heart sound GI normal to inspection, nondistended, normoactive bowel sounds, soft to palpation, non-tender and non-distended Assessment & Plan Assessment/Plan (1) SVT (supraventricular tachycardia): PLAN: Status post conversion sinus rhythm with 6 mg of adenosine. Potassium presentation was 3.9. 10 mEq of potassium chloride ordered. TSH WNL No further events. Continue metoprolol Patient states that yesterday he was doing more activity he normally does on a day where there is air quality advisory and then he went to the hot shower when all this happened. Likely was a confluence of events of overworking, bad air quality and taking hot shower that led to this event. No additional work-up. Discharge home. (2) Chest pain: QUALIFIERS: Chest pain type: precordial pain Qualified Code(s): R07.2 - Precordial pain PLAN: ASA 81 mg p.o. daily ordered Lipid panel. Initial high sensitivity troponin was 33. Repeat was 77. Then 84. Stress test negative. Echo shows an EF of 65%. Mild concentric LVH. Bump in troponins likely 2/2 SVT. (3) Hypotension: QUALIFIERS: Hypotension type: unspecified hypotension type Qualified Code(s): I95.9 - Hypotension, unspecified PLAN: Resolved with IV fluid in the ED. Trend blood pressures. PLAN: Plan Chronic conditions: Hypothyroidism TSH as above. DVT prophylaxis: SCDs ordered.
[2023-04-15] MEDS: Metoprolol Tartrate 25 MG Tablet 12.5 MG PO (11:00)
--- NOTE | 2023-04-15 11:10 | STRESSREP ---
Stress Test Report Date: 04/15/2023 Procedure: Pharmacologic stress nuclear imaging study Indications: Chest pain Consent: Per the patient Procedure: The patient underwent pharmacologic (Regadenoson 0.4mg ) evaluation with a peak heart rate of 72 beats per minute (52%predicted maximal heart rate) and a peak blood pressure of 114/62 mmHg. The baseline ECG demonstrated sinus rhythm with right bundle branch block. The peak pharmacologic ECG demonstrated no diagnostic changes. There were no cardiac dysrhythmias pretest, during pharmacologic infusion, or recovery. There was no complaint of chest discomfort during pharmacologic infusion or recovery. The patient was injected with 14.4 millicuries of technetium 99m Cardiolite and subsequently rest SPECT Cardiolite nuclear imaging was obtained in the horizontal long, vertical long, and short axis views. The patient underwent pharmacologic (Regadenoson) evaluation. The patient was injected with 45.0 millicuries of technetium 99m Cardiolite and subsequently stress SPECT Cardiolite nuclear imaging was obtained in the horizontal long, vertical long, and short axis views. A gated Cardiolite study at peak stress was obtained. The examination was stopped secondary to completion of protocol. Rest and stress SPECT Cardiolite nuclear imaging status post realignment, normalization, and attenuation correction demonstrate mild fixed perfusion defect at the apex, likely physiological thinning. There is end systolic thickening and brightening. The gated Cardiolite study demonstrates myocardial thickening and inward wall motion. The reported LVEF is 78%. Impression: 1. Pharmacologic (Regadenoson) evaluation 2. Peak pharmacologic ECG with no diagnostic changes. 3. There were no cardiac dysrhythmias pretest, during pharmacologic infusion, or recovery. 5. Rest and stress SPECT Cardiolite nuclear imaging demonstrate relative uniform tracer uptake and myocardial perfusion appearing within normal limits. 6. The gated Cardiolite study reports an LVEF of 78%. This note was generated with Internet REITation software. It may contain incorrect words, spelling, and punctuation that were not noted in checking the note before signing.
--- NOTE | 2023-04-15 13:25 | CHAPLAIN ---
Type of Pastoral Visit _x__ Initial Visit ___ Follow-up Visit ___ On-call Visit ___ General Patient Visit ___ Spiritual Assessment ___ Family Conference ___ Bereavement ___ Rapid Response ___ Code Blue ___ Other (describe below) Pastoral Care Referral From _x__ Patient _x__ Family ___ Nurse ___ Physician ___ Gas Meter Mechanic ___ Product Assurance Engineer ___ Other (describe below) Sacrament/Intervention _x__ Active listening ___ Anointing ___ Moravian ___ Bereavement ___ Communion ___ Eleni exploration ___ ___ Life review ___ Prayer ___ Reconciliation ___ Sacrament of Sick _x__ Supportive presence ___ Wedding ___ Other (describe below) Pastoral Comments met with patient and spouse; pt is resting but awake; both are waiting for test results; pt says he has gone through these things before and does not worry about it; neither express any needs; casual conversation about the family
--- NOTE | 2023-04-15 14:34 | PCM.DC ---
Discharge Instructions Diet Discharge Diet: Low fat / Low cholesterol Dressing / Incision Call your doctor if you observe: Shortness of breath and Chest pain Follow Up Care Test Results: Test results from this visit will be discussed in further detail at your follow-up appointment, if applicable. Discharge Plan Admission Admit Date/Time: 04/15/23 02:43 Primary Reason for Your Visit: supraventricular tachycardia Attending Provider: Parish Pina Primary Care Provider: Cash Laguna Consulting Providers: Brian Sheppard Discharge Orders/Prescriptions Prescriptions: Continued cyanocobalamin (vitamin B-12) 1,000 mcg/mL solution 1,000 mcg IM .Q3w Patient Comments: INJECT 1 ML INTRAMUSCULARLY ONCE EVERY MONTH. montelukast 10 mg tablet 10 mg PO DAILY levothyroxine 112 mcg tablet 112 mcg PO DAILY Patient Comments: TAKE 1 TABLET BY MOUTH EVERY DAY BEFORE BREAKFAST (DME) handicap placard See Rx Instructions .Route .MEDSUPPLY Qty: 1 0RF Rx Instructions: As directed acetaminophen 325 mg capsule 325 mg PO ONCE PRN (Reason: pain) aspirin 81 MG tablet 81 mg PO DAILY@0800 Qty: 90 0RF fluticasone furoate-vilanterol 200-25 mcg/dose blister with device 1 ea INHALATION DAILY atorvastatin 10 mg tablet 10 mg PO .QODAY Qty: 45 3RF metoprolol tartrate 25 mg tablet See Rx Instructions .ROUTE .COMPLEX Qty: 90 3RF Dose Instruction: TAKE 1/2 TABLET BY MOUTH TWICE DAILY Rx Instructions: TAKE 1/2 TABLET BY MOUTH TWICE DAILY Referrals / Follow Up: [facility] [Provider Group] - Within 3 Months Cash Laguna MD [Primary Care Provider] - Within 2 Weeks Disposition Disposition (needs filled in before D/C Order can be placed): Home, Self Care
--- NOTE | 2023-04-15 14:36 | PCM.DC.SUM ---
Providers Date of Admission: 04/15/23 Primary Care Physician: Dr. Cash Laguna MD Reason For Visit: CHEST PAIN, SVT Diagnosis Discharge Diagnosis (1) SVT (supraventricular tachycardia): Status: Acute Code(s): I47.1 - Supraventricular tachycardia Plan: Status post conversion sinus rhythm with 6 mg of adenosine. Potassium presentation was 3.9. 10 mEq of potassium chloride ordered. TSH WNL No further events. Continue metoprolol Patient states that yesterday he was doing more activity he normally does on a day where there is air quality advisory and then he went to the hot shower when all this happened. Likely was a confluence of events of overworking, bad air quality and taking hot shower that led to this event. No additional work-up. Discharge home. (2) Chest pain: Status: Inactive Code(s): R07.9 - Chest pain, unspecified Qualifiers: Chest pain type: precordial pain Qualified Code(s): R07.2 - Precordial pain Plan: ASA 81 mg p.o. daily ordered Lipid panel. Initial high sensitivity troponin was 33. Repeat was 77. Then 84. Stress test negative. Echo shows an EF of 65%. Mild concentric LVH. Bump in troponins likely 2/2 SVT. (3) Hypotension: Status: Acute Code(s): I95.9 - Hypotension, unspecified Qualifiers: Hypotension type: unspecified hypotension type Qualified Code(s): I95.9 - Hypotension, unspecified Plan: Resolved with IV fluid in the ED. Trend blood pressures. Plan Chronic conditions: Hypothyroidism TSH as above. DVT prophylaxis: SCDs ordered. Medications at Discharge Home Medications aspirin 81 mg tablet,delayed release 81 mg PO DAILY@0800 #90 tabs 11/23/19 cyanocobalamin (vitamin B-12) 1,000 mcg/mL injection solution 1,000 mcg IM .Q3w 04/13/20 fluticasone furoate 200 mcg-vilanterol 25 mcg/dose inhalation powder 1 ea inhalation DAILY 04/13/20 montelukast 10 mg tablet 10 mg PO DAILY 10/13/20 levothyroxine 112 mcg tablet 112 mcg PO DAILY 04/24/21 acetaminophen 325 mg capsule 325 mg PO ONCE PRN pain 07/02/21 handicap placard #1 ea 01/27/22 atorvastatin 10 mg tablet 10 mg PO .QODAY Please correct quantity for Q other day med #45 tabs 12/09/22 metoprolol tartrate 25 mg tablet See Rx Instructions .Route .COMPLEX #90 tabs 03/03/23 Hospital Course Operations None Procedures 2-D Echocardiogram and Nuclear stress test Summary of Care Provided Minutes Spent on Discharge: 35 Weight / BMI Weight Weight: 100.5 kg Body Mass Index (BMI) 31.8 ABG / Lab / Microbiology Data 04/15/23 06:05 04/15/23 06:05 Laboratory: Laboratory Results - last 24 hr 04/14/23 23:37: WBC 6.8, RBC 4.76, Hgb 15.4, Hct 47.3, MCV 99.4 H, MCH 32.4 H, MCHC 32.6, RDW Std Deviation 45.9 H, RDW Coeff of Dejuan 12.5, Plt Count 149 L, MPV 10.2, Immature Gran % (Auto) 0.400, Neut % (Auto) 64.0, Lymph % (Auto) 20.6, [place] % (Auto) 12.4 H, Eos % (Auto) 1.6, Baso % (Auto) 1.0, Absolute Neuts (auto) 4.3, Absolute Lymphs (auto) 1.39, Nucleated RBC % 0, Sodium 142, Potassium 3.9, Chloride 110 H, Carbon Dioxide 27.0, Anion Gap 5, BUN 19 H, Creatinine 0.96, Estim Creat Clear Calc 59.14, Est GFR (MDRD) Af Amer 96, Est GFR (MDRD) Non-Af 80, BUN/Creatinine Ratio 19.9, Glucose 122 H, Calcium 8.4 L, Troponin I High Sens 33 04/15/23 01:45: Troponin I High Sens 77 04/15/23 06:05: WBC 5.6, RBC 4.50 L, Hgb 14.5, Hct 45.6, MCV 101.3 H, MCH 32.2 H, MCHC 31.8 L, RDW Std Deviation 47.8 H, RDW Coeff of Dejuan 12.7, Plt Count 144 L, MPV 10.3, Immature Gran % (Auto) 0.400, Neut % (Auto) 60.6, Lymph % (Auto) 22.8, [place] % (Auto) 13.9 H, Eos % (Auto) 1.6, Baso % (Auto) 0.7, Absolute Neuts (auto) 3.4, Absolute Lymphs (auto) 1.28, Nucleated RBC % 0, Sodium 142, Potassium 4.1, Chloride 109 H, Carbon Dioxide 31.0, Anion Gap 2 L, BUN 19 H, Creatinine 0.81, Estim Creat Clear Calc 70.10, Est GFR (MDRD) Af Amer 117, Est GFR (MDRD) Non-Af 97, BUN/Creatinine Ratio 23.5 H, Glucose 101, Calcium 8.3 L, Troponin I High Sens 84 H, Triglycerides 68, Cholesterol 87, LDL Cholesterol 29, VLDL Cholesterol 14, HDL Cholesterol 44, TSH 2.00 Radiography Diagnostic Testing: Radiology Impression Chest X-Ray 04/14/23 23:25 IMPRESSION: Stable chest. Low lung volumes including elevated left hemidiaphragm and left basilar atelectasis or scarring. Electronically Signed: Concepcion Morales MD at 0:11 EDT Reading Location ID and State: [facility] / [place] Tel , Service support , Echocardiogram 04/15/23 05:55 Interpretation Summary The study was technically difficult. Mild concentric left ventricular hypertrophy. The left ventricular ejection fraction is 65 %. The left atrium is mildly enlarged. Ordering Physician: Brian Sheppard Referring Physician: Cash Laguna Performed By: Heather Dunlap, ANGELIA, RVT D/C Instructions Discharge Diet: Low fat / Low cholesterol Call your doctor if you observe: Shortness of breath and Chest pain Meaningful Use Info Meaningful Use Diagnoses (Choose all that apply): None applicable Discharge Plan Admission Admit Date/Time: 04/15/23 02:43 Primary Reason for Your Visit: supraventricular tachycardia Attending Provider: Parish Pina Primary Care Provider: Cash Laguna Consulting Providers: Brian Sheppard Discharge Orders/Prescriptions Prescriptions: Continued cyanocobalamin (vitamin B-12) 1,000 mcg/mL solution 1,000 mcg IM .Q3w Patient Comments: INJECT 1 ML INTRAMUSCULARLY ONCE EVERY MONTH. montelukast 10 mg tablet 10 mg PO DAILY levothyroxine 112 mcg tablet 112 mcg PO DAILY Patient Comments: TAKE 1 TABLET BY MOUTH EVERY DAY BEFORE BREAKFAST (DME) handicap placard See Rx Instructions .Route .MEDSUPPLY Qty: 1 0RF Rx Instructions: As directed acetaminophen 325 mg capsule 325 mg PO ONCE PRN (Reason: pain) aspirin 81 MG tablet 81 mg PO DAILY@0800 Qty: 90 0RF fluticasone furoate-vilanterol 200-25 mcg/dose blister with device 1 ea INHALATION DAILY atorvastatin 10 mg tablet 10 mg PO .QODAY Qty: 45 3RF metoprolol tartrate 25 mg tablet See Rx Instructions .ROUTE .COMPLEX Qty: 90 3RF Dose Instruction: TAKE 1/2 TABLET BY MOUTH TWICE DAILY Rx Instructions: TAKE 1/2 TABLET BY MOUTH TWICE DAILY Referrals / Follow Up: [facility] [Provider Group] - Within 3 Months Cash Laguna MD [Primary Care Provider] - Within 2 Weeks Disposition Disposition (needs filled in before D/C Order can be placed): Home, Self Care Charges/Coding Visit Charges Inpatient E&M: 81233 Disch Hosp >30min
--- NOTE | 2023-04-15 14:40 | PHA.DC.MR.R ---
Pharmacy [place] Med Reconciliation Pharmacy Service has performed discharge medication reconciliation for this patient. The patient's discharge medication list was reviewed for discrepancies and discrepancies were resolved. Medications at Discharge Home Medications aspirin 81 mg tablet,delayed release 81 mg PO DAILY@0800 #90 tabs 11/23/19 cyanocobalamin (vitamin B-12) 1,000 mcg/mL injection solution 1,000 mcg IM .Q3w 04/13/20 fluticasone furoate 200 mcg-vilanterol 25 mcg/dose inhalation powder 1 ea inhalation DAILY 04/13/20 montelukast 10 mg tablet 10 mg PO DAILY 10/13/20 levothyroxine 112 mcg tablet 112 mcg PO DAILY 04/24/21 acetaminophen 325 mg capsule 325 mg PO ONCE PRN pain 07/02/21 handicap placard #1 ea 10/25/21 atorvastatin 10 mg tablet 10 mg PO .QODAY Please correct quantity for Q other day med #45 tabs 12/09/22 metoprolol tartrate 25 mg tablet See Rx Instructions .Route .COMPLEX #90 tabs 03/03/23
--- NOTE | 2023-04-15 15:12 | CASEMGMT ---
DAVID SCHMITT NOTE: Intro role of CM to patient and , who is in room, and [facility]ORROW form explained re: Observation status for treatment of dizziness.? Explained hospitalization will be paid per?his insurance policy for Outpatient billing?and condition will continue to be evaluated for Inpt necessity. Also let pt and know that [facility] sends paper in the billing packet with their phone number if questions arise. Discussed Pharmacy section of MORROW form and self administered medication guideline.? Pt and verbalize understanding and do not have further questions. ?Form signed, copy made and placed in chart, and original given to pt. PT/OT evals reviewed. Additional therapy recommended. Discussed discharge planning w/pt and . Pt is interested in doing OP therapy, but states he plans to leave for [facility] on Friday and wouldn't do OP therapy until he returns and would be dependent on if he is still having dizziness. Pt provided w/script for OP PT/vestibular therapy and OT and pt/ made aware he can take to any OP therapy location of his choice. Pt states he does not have a walker @ home and would like to get one. Pt and deny having preference of DME co, made aware [facility] is affiliated w/[facility]. He chooses [facility]. Call to Kizzy @ [facility]. She states it would be about an hour before WW can be delivered to [facility]. Pt and made aware and prefer to pick the walker up @ [facility]'s local branch today instead of waiting on delivery of it. Script for [facility] given to pt and . verifies she knows where the branch/office is located. Pt and deny having any further discharge planning needs or concerns. Anu WHELAN RN, CM
== END 2023-04-15 14:36 | disposition home or self-care (01) ==
LOC: ED 04-15 02:26 → PCU 04-15 03:17
PROVIDERS: Admitting Provider Hospitalist; Emergency Provider Emergency Medicine; PCP Internal Medicine; Referring Provider Hospitalist
DX: I47.1 Supraventricular tachycardia (principal); Z79.51 Long term (current) use of inhaled steroids; R07.2 Precordial pain; I95.9 Hypotension, unspecified; Z79.82 Long term (current) use of aspirin; I25.10 Atherosclerotic heart disease of native coronary artery without angina pectoris; E03.9 Hypothyroidism, unspecified; Z79.890 Hormone replacement therapy; Z79.899 Other long term (current) drug therapy; J45.909 Unspecified asthma, uncomplicated; I25.2 Old myocardial infarction
CPT/HCPCS: 36415; 71045; 78452; 80048; 80061; 84443; 84484; 85025; 93005; 93017; 93306; 96361; 96374; 99221; 99285; A9500; Q9957; A4216; C8929; G0378; J0153; J2785

== ENCOUNTER → 2023-06-30 | Outpatient (CLI) | payer MEDICARE, OTHER, SELFPAY ==
--- NOTE | 2023-06-30 10:25 | RAD_ITS ---
INDICATION: COUGH EXAMINATION/TECHNIQUE: X-RAY - XR Chest 2 Views COMPARISON: 04/14/2023. FINDINGS: Unchanged bibasilar scarring/atelectasis with elevation of the left hemidiaphragm. No acute lung findings. Tortuous and calcified thoracic aorta. The heart is not enlarged. No pleural effusion or pneumothorax. Degenerative changes of the thoracic spine. RAD/Chest PA and Lateral IMPRESSION: No acute radiographic abnormalities. Unchanged bibasilar scarring/atelectasis with elevation of the left hemidiaphragm. Electronically Signed: Cesar Thomas MD at 17:37 EDT ,
== END | disposition home or self-care (01) ==
LOC: MTRAD 10:23
PROVIDERS: PCP Internal Medicine; Referring Provider Internal Medicine Pulmonary Disease; Visit Provider Internal Medicine Pulmonary Disease
DX: R05.9 Cough, unspecified (principal)
CPT/HCPCS: 71046

== ENCOUNTER → 2023-07-03 | Outpatient (CLI) | payer MEDICARE, OTHER, SELFPAY ==
--- NOTE | 2023-07-03 09:42 | RAD_ITS ---
PROCEDURE: Sniff test. DATE OF EXAMINATION: July 03, 2023. INDICATION: Male, 82 years old. Elevated left hemidiaphragm. Cough. FLUOROSCOPY TIME (if supplied): (20 seconds) minutes/seconds. 12.63 mGy. 2 images were submitted. RAD/Chest Sniff Test Fluoro Only IMPRESSION: Normal movement of both hemidiaphragms. There is elevation of the left hemidiaphragm. Electronically Signed: Dwaine Singh MD at 10:49 EDT ,
== END | disposition home or self-care (01) ==
LOC: RAD 09:37
PROVIDERS: PCP Internal Medicine; Visit Provider Internal Medicine Pulmonary Disease
DX: R05.9 Cough, unspecified (principal)
CPT/HCPCS: 76000

== ENCOUNTER → 2023-12-02 | Outpatient (CLI) | payer MEDICARE, OTHER, SELFPAY ==
[2023-12-02 10:57] LABS: AST(SGOT) 17 U/L (15-37); Alanine Aminotransfer ALT/SGPT 18 U/L (16-61); Albumin, Serum 3.4 g/dL (3.2-5.0); Alkaline Phosphatase 147 U/L (45-117); Bilirubin, Direct 0.21 mg/dL (0.00-0.30); Cholesterol 109 mg/dL (200); Globulin 3.1 g/dL (2.2-4.2); High Density Lipoprotein 53 mg/dL; Protein, Total 6.5 g/dL (6.4-8.2); Triglycerides 74 mg/dL; Very Low Density Lipoprotein 15 mg/dL (5-40)
== END | disposition home or self-care (01) ==
LOC: MTLAB 09:00
PROVIDERS: PCP Internal Medicine; Referring Provider Internal Medicine Cardiovascular Disease; Visit Provider Internal Medicine Cardiovascular Disease
DX: I25.10 Atherosclerotic heart disease of native coronary artery without angina pectoris (principal)
CPT/HCPCS: 36415; 80061; 80076

== ENCOUNTER → 2024-01-13 | Outpatient (CLI) | payer MEDICARE, OTHER, SELFPAY ==
[2024-01-13 15:28] LABS: Anion Gap 2 (5-15); Chloride 108 mmol/L (98-107); Potassium 4.1 mmol/L (3.5-5.1); Sodium Level 141 mmol/L (136-145)
== END | disposition home or self-care (01) ==
LOC: MTLAB 11:17
PROVIDERS: PCP Internal Medicine; Referring Provider Internal Medicine Pulmonary Disease; Visit Provider Internal Medicine Pulmonary Disease
DX: G47.33 Obstructive sleep apnea (adult) (pediatric) (principal); R09.02 Hypoxemia
CPT/HCPCS: 36415; 80051

== ENCOUNTER → 2024-11-30 | Outpatient (CLI) | payer MEDICARE, OTHER, SELFPAY ==
[2024-11-30 12:57] LABS: AST(SGOT) 22 U/L (<=37); Alanine Aminotransfer ALT/SGPT 13 U/L (<=46); Albumin, Serum 3.9 g/dL (3.4-4.8); Alkaline Phosphatase 160 U/L (40-129); Bilirubin, Direct 0.25 mg/dL (0.00-0.30); Globulin 2.6 g/dL (2.2-4.2); Protein, Total 6.6 g/dL (5.9-8.4); Total Bilirubin 0.58 mg/dL (0.00-1.30)
[2024-11-30 14:18] LABS: Cholesterol 145 mg/dL (<=200); High Density Lipoprotein 52 mg/dL; Low Density Lipoprotein Calc. 75 mg/dL; Triglycerides 90 mg/dL; Very Low Density Lipoprotein 18 mg/dL (5-40); cholesterol:hdl ratio screen 2.78
== END | disposition home or self-care (01) ==
LOC: MTLAB 09:15
PROVIDERS: PCP Internal Medicine; Referring Provider Nurse Practitioner Family; Visit Provider Nurse Practitioner Family
DX: E78.00 Pure hypercholesterolemia, unspecified (principal); I25.10 Atherosclerotic heart disease of native coronary artery without angina pectoris
CPT/HCPCS: 36415; 80061; 80076